=== PATIENT | female | born 1975 | race Caucasian/White ===

== ENCOUNTER 2019-06-26 07:47 | Outpatient (CLI) | payer MEDICARE, MEDICAID, SELFPAY ==
--- NOTE | 2019-06-26 | CT_ITS ---
WS: [id number] CT scan of the chest With IV contrast, CT scan of the abdomen and pelvis With IV contrast and with oral contrast. Additional two-dimensional coronal and sagittal reconstruction was performed. 06/26/2019 Clinical Data: COLON CANCER/LUNG ABSCESS Comparison: CT chest, 04/17/2019, CT abdomen and pelvis, 01/13/2019. DLP: 1207.11 mGy-cm. All CT scans at [facility] use at least one of these dose optimization techniques: automat ed exposure control; mA and/or kV adjustment per patient size (includes targeted exams where dose is matched to clinical indication); or iterative reconstruction. Findings: Chest: The cavitary mass in the superior segment of the left lower lobe has diminished in size and now measu res 3.14 x 4.23 cm. The wall has thinned considerably. This is more consistent with a lung abscess ra ther than a lung carcinoma. No other masses are seen. No change in the right upper lobe nodule is not ed. There are no effusions. The heart size is normal with no pericardial effusion. The trachea bifurcates normally into the bronc hi. The thyroid gland shows normal enhancement. The right infusion catheter remains the same. The bon es of the thorax show no metastatic lesions. The pulmonary arterial system and thoracic aorta demonstrate no abnormalities or dilatations. There is no axillary or significant mediastinal adenopathy. Abdomen/pelvis: The liver, adrenal glands and pancreas are normal. Her clips in the gallbladder fossa from a cholecy stectomy. The spleen is absent and there is a soft tissue mass between the fundus of the stomach and left kidney with a low-density center and it has enlarged slightly and has a low-density center perha ps a fluid collection. The kidneys show equal bilateral contrast excretion with no cyst or masses. The abdominal aorta is normal in size. No appendicitis or diverticulitis is seen. Oral contrast is in the stomach, small bowel and colon, an d there is no bowel dilatation. No abscess, significant adenopathy, ascites, mass, obstruction or lianne e air is seen. The left mid abdominal colostomy site again is seen with herniation of fat into the co lostomy. The sigmoid colon again ends in the pouch. The bladder and uterus are unremarkable. No inguinal hernia is seen. The bones of the lower thorax, lumbar spine, pelvis, and hips show degenerative change of the lower l umbar vertebral bodies but no metastatic lesions. CT/CT chest abd pel w con* Impression: 1. Decrease in size of cavitary lesion in superior segment of the left lower lo be, probably an improving lung abscess. 2. No new lung nodules or metastatic lesions are seen. 3. Absent gallbladder and spleen. 4. Soft tissue mass between the fundus of the stomach and left kidney may repre sent postoperative fibrosis and less likely metastatic disease.. 5. No change in left paramedian colostomy.
--- NOTE | 2019-06-26 08:03 | CT_ITS ---
WS: [id number] CT scan of the chest With IV contrast, CT scan of the abdomen and pelvis With IV contrast and with oral contrast. Additional two-dimensional coronal and sagittal reconstruction was performed. 06/26/2019 Clinical Data: COLON CANCER/LUNG ABSCESS Comparison: CT chest, 04/17/2019, CT abdomen and pelvis, 01/13/2019. DLP: 1207.11 mGy-cm. All CT scans at [facility] use at least one of these dose optimization techniques: automat ed exposure control; mA and/or kV adjustment per patient size (includes targeted exams where dose is matched to clinical indication); or iterative reconstruction. Findings: Chest: The cavitary mass in the superior segment of the left lower lobe has diminished in size and now measu res 3.14 x 4.23 cm. The wall has thinned considerably. This is more consistent with a lung abscess ra ther than a lung carcinoma. No other masses are seen. No change in the right upper lobe nodule is not ed. There are no effusions. The heart size is normal with no pericardial effusion. The trachea bifurcates normally into the bronc hi. The thyroid gland shows normal enhancement. The right infusion catheter remains the same. The bon es of the thorax show no metastatic lesions. The pulmonary arterial system and thoracic aorta demonstrate no abnormalities or dilatations. There is no axillary or significant mediastinal adenopathy. Abdomen/pelvis: The liver, adrenal glands and pancreas are normal. Her clips in the gallbladder fossa from a cholecy stectomy. The spleen is absent and there is a soft tissue mass between the fundus of the stomach and left kidney with a low-density center and it has enlarged slightly and has a low-density center perha ps a fluid collection. The kidneys show equal bilateral contrast excretion with no cyst or masses. The abdominal aorta is normal in size. No appendicitis or diverticulitis is seen. Oral contrast is in the stomach, small bowel and colon, an d there is no bowel dilatation. No abscess, significant adenopathy, ascites, mass, obstruction or lianne e air is seen. The left mid abdominal colostomy site again is seen with herniation of fat into the co lostomy. The sigmoid colon again ends in the pouch. The bladder and uterus are unremarkable. No inguinal hernia is seen. The bones of the lower thorax, lumbar spine, pelvis, and hips show degenerative change of the lower l umbar vertebral bodies but no metastatic lesions.
[2019-06-26] MEDS: iohexol 300 mg/mL 100 mL Btl IV (08:11)
[2019-06-26] MEDS: iohexol 300 mg/mL 50 mL Btl IV (08:13)
== END 2019-06-26 07:48 | disposition home or self-care (01) ==
PROVIDERS: Family Provider Family Medicine; PCP Family Medicine; Visit Provider Internal Medicine Medical Oncology
DX: C18.9 Malignant neoplasm of colon, unspecified (principal); J85.2 Abscess of lung without pneumonia
CPT/HCPCS: 71260; 74177

== ENCOUNTER 2019-07-07 09:43 | Outpatient (CLI) | payer MEDICARE, MEDICAID, SELFPAY ==
[2019-07-07 10:20] LABS: Basophils # 0.1 10^3/uL (0.0-0.1); Basophils % 0.5 %; Eosinophils # 0.5 10^3/uL (0.0-0.8); Eosinophils % 3.3 %; Hematocrit 39.4 % (37.0-47.0); Hemoglobin 12.7 g/dL (11.5-15.3); Lymphocytes # 3.9 10^3/uL (0.8-4.8); Lymphocytes % 26.2 %; Mean Corpuscular HGB Conc 32.2 g/dL (30.0-36.0); Mean Corpuscular Hemoglobin 30.7 pg (28.0-34.0); Mean Corpuscular Volume 95.2 fL (81-99); Mean Platelet Volume 10.2 fL (7.4-10.4); Monocytes # 1.2 10^3/uL (0.2-0.9); Monocytes % 8.1 %; Neutrophils # 9.1 10^3/uL (1.8-7.7); Neutrophils % 60.9 %; Nucleated Red Blood Cells # 0.1 /100WBC; Nucleated Red Blood Cells % 0.4 %; Platelet Count 571 10^3/cmm (130-400); Red Blood Count 4.14 10^6/uL (4.1-5.3); Red Cell Distribution Width 17.3 % (12.1-15.1)
[2019-07-07 10:41] LABS: Carcinoembryonic Antigen 2.4 ng/mL (0.0-4.7)
[2019-07-07 10:52] LABS: Alanine Aminotransferase 13 U/L (0-33); Albumin Level 3.9 g/dL (3.5-5.2); Alkaline Phosphatase 125 IU/L (35-105); Aspartate Amino Transferase 10 U/L (0-32); Blood Urea Nitrogen 9 mg/dL (6-20); Calcium 9.4 mg/Dl (8.6-10.0); Carbon Dioxide 23 mmol/L (22-29); Chloride 99 mmol/L (98-107); Globulin 2.3 g/dL (1.3-4.6); Glomerular Filtration Rate 108.1 mL/min (90-130); Glucose 115 mg/dL (74-109); Sodium 136 mmol/L (136-145); Total Bilirubin 0.2 mg/dL (0.15-1.2); Total Protein 6.2 g/dL (6.6-8.7)
[2019-07-07] MEDS: sodium chloride 0.9% 1,000 ML 999 ML IV (10:55)
--- NOTE | 2019-07-11 13:34 | ONC FU_ITS ---
Dr. Cooney Patient Follow-Up Note Patient: Flaca Caceres Unit #: [id number]: 1975 Dicatated By: Quinn Cooney M.D.Date of Visit:Jul 07, 2019 Onc Med Follow-up/Prog Note Chief Complaint: Colon cancer and anal margin skin cancer. History of Present Illness: This is a 44 year-old woman with recurrent/metastatic colon cancer and anal margin skin cancer. She has a history of HIV infection acquired through prior IV drug use, diagnosed in 1993. She had a high viral load, CD4 counts of 300. She had been followed by Dr. Goss and Shalini Simeon at [facility] in [place], [place]. She had started treatment with Atripla, though she had been without any history of AIDS defining illnesses. She was then admitted with an acute large bowel obstruction. Her CT of the abdomen and pelvis on 09/24/2013 showed 5 cm mass in the splenic flexure with massive distention of the colon. There were no lesions in the liver. Chest x-ray was unremarkable. CEA 1.0. On 09/25/2013 she was taken to OR for exploratory laparotomy, left hemicolectomy, and transverse end colostomy by Dr. Cristian Bourgeois. 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 There was involvement in 3 out of 7 lymph nodes. Thus, her disease was pathologic stage IIIB (pT3, pN1b, M0). CD4 counts were at 458. Left-sided Port-A-Cath placed. Adjuvant chemotherapy with FOLFOX regimen for 4 cycles delivered 10/21/2013-03/08/2014. She had multiple interruptions, and noncompliance. She had an abscess collection at the surgical bed, underwent a CT-guided percutaneous drainage. For Escherichia coli infection, she received 14 days of Invanz via port. CT of the abdomen and pelvis on 02/15/14 showed no disease progression, although she had a pre-sacral mass inseparable from the colon, which was present since 09/24/2013. There was no further abscess. On 04/04/2014 she had an abdominal pain due to prolapsed bowel in stoma, presented to ED. The urine toxicology screen was positive for amphetamine and THC screen. On 04/09/2014 she was admitted with fever, thought to be due to Port-A-Cath infection. Port-A-Cath was removed, cultures negative. Once again the patient was lost to followup, and did not return for the scheduled appointments. 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 Capecitabine and Oxaliplatin was attempted, cycle 1 on 06/02/14, cycle 2 on 07/14/14. In total, she has received 6 cycles of the oxaliplatin-based treatment, with significant interruptions in her care from 10/21/2013 till 07/14/14. She continued on expectant management; missed her follow up appointments. PET/CT on 11/27/2014 showed no evidence of recurrent malignancy. There was an enlarged left ovary for which ultrasound was recommended. She failed to return for ultrasound or for her scheduled follow-up visits. In interim she underwent perineal and vaginal papulosis treatment by Dr. Bonds. In April 2015 she had progressive night sweats, and progressive pain in the anal / pelvic region. A CT of the pelvis on05/04/2015 revealed several nodular lesions in the pelvis including an 1.9 cm in the vaginal wall, a 4.2 cm in the presacral region, an 1.25 cm adjacent to the left ovary. Clinically she had significant tenderness in the vaginal wall and labia. On 07/04/2015 she underwent an exam under anesthesia, by Dr. Bonds and Dr. Munoz. A large perianal mass with vaginal fistula and open wound was found. She required fistulotomy with the biopsy and excision of the anal mass as well as dilation and curettage. 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 She was then again lost to follow-up here. She was reached in August 2015. At that point an ulcerated, symptomatic anal margin mass measuring 3 cm at 3:00 position was apparent. Restaging PET/CT on 10/01/2015 revealed persistent primary anal malignancy increased in size, 2 subcentimeter conjoint suspicious pulmonary nodules in the right lower lobe and FDG negative presacral mass increased to 5 cm. 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 Small right lower lobe pulmonary nodule was suspicious for metastatic disease. Concurrent combined chemotherapy with Mitomycin and Xeloda together with radiation treatment began on 10/06/2015. Her treatment was complicated with significant radiation-induced toxicity and perineal pain. Clinically, the ulcerated lesion had decreased in size. She completed radiation on 11/28/2015 to a total dose of 5580 cGy. She was seen here for a follow-up visit on 02/16/2016. At that time she was having fever, abdominal pain, and vomiting. A CT abdomen/pelvis at that time showed a new mesenteric nodule in the left upper abdomen measuring 1.7 x 2.2 cm. Metastasis was not excluded. There was moderate hepatomegaly and hepatic steatosis. Her laboratory studies were unremarkable except for low albumin at 2.9 g/dL. She failed to return for follow-up. She was seen at the emergency room at [facility] on 10/22/2017. CT abdomen/pelvis showed interval enlargement of a lobulated cystic structure in the splenic hilum measuring 4.2 x 4.1 cm. She was seen for follow-up here on 10/28/2017. At that time she had a large stomal hernia and significant prolapse of colon at her ostomy site. She was referred to Dr. Bourgeois. She underwent colonoscopy on 12/10/2017. The transverse colon was examined to the transverse colostomy, but the ascending colon could not be visualized. Two days later she presented to the emergency room with severe abdominal pain. She was admitted to [facility] in [place] with evidence of perforated viscus. On 12/12/2017 she underwent emergency exploratory laparotomy with resection of perisplenic mass, splenectomy, and omentectomy. She also underwent reduction of the colon prolapse and reduction of the stomal hernia. Pathology showed well-differentiated mucinous adenocarcinoma involving the perisplenic fat. The tumor measured 7.2 cm in diameter. There was invasion into the spleen and pancreas. Tumor was noted at the edge of the specimen. The omentum was not involved. The tumor was found to harbor a K-barby mutation (c.35G>A). Mismatch repair proteins were found to be intact. On 12/19/2017 she required exploratory laparotomy with drainage of intra-abdominal abscess and partial gastric resection. On 01/03/2018 showed a re-exploration of the abdomen for gastric leak. The procedure included extensive lysis of adhesions, esophagogastroduodenoscopy, and placement of LEIGHA gastrostomy jejunostomy feeding tube. She had gradual recovery and was then able to be discharged to the [facility] in [place]. She eventually was able to return home with her mother in January. Restaging PET/CT on 06/07/2018 showed a new minimally hypermetabolic left periaortic lymph node measuring 1.7 cm, SUV 2.4. It was felt to be suspicious for recurrence. There were no other suspicious lesions identified. She then had further pathologic evaluation with a [facility] genetic sequencing study. It confirmed the presence of the G12D KRAS mutation and it also confirmed the tumor to be MSI stable. Tumor mutation burden was noted to be low and the NTRK fusion was not detected. I had seen her for a follow-up visit on 07/08/2018. In the absence of any significant disease progression, I had recommended that we continue on observation/expectant management. Restaging CT scans of the abdomen and pelvis on 10/16/2018 show recurrent tumor in the area of the previously noted mass, measuring 3.1 cm. There was interval development of retroperitoneal left periaortic lymphadenopathy measuring up to 14 mm. There was no inguinal or mesenteric adenopathy noted. There was further enlargement of the parastomal hernia measuring 6.5 cm compared to 4.2 cm on the previous study from October 2017. In the setting of further disease progression, she was agreeable to restarting chemotherapy with modified FOLFOX. There was some delay in starting treatment while arrangements were made for placement of Port-A-Cath venous access device by interventional radiology at [facility]. Her medical illnesses include colon cancer, anal margin skin cancer, HIV disease, COPD, hypertension, hypertriglyceridemia, and hypothyroidism. She also has a history of having been treated for cervical cancer. She smokes 1 pack of cigarettes daily, and she has history of polysubstance abuse. INTERIM HISTORY: She began cycle 1 of modified FOLFOX on 12/09/2018. It was administered without 5-FU bolus. She had been having nausea/vomiting prior to surgery the chemotherapy, and it worsened afterwards to the point that she required admission to the hospital for IV fluids and IV anti-emetics. She was sick for about a week after that treatment. Following discharge from the hospital she had no further nausea/vomiting. She continued with cycle 2 of modified FOLFOX on 12/22/2018 and with cycle 3 on 01/06/2019. At her follow-up visit on 01/20/2019 her treatment was put on hold pending outcome of a restaging PET/CT. That study was completed on 02/12/2019. It showed increased metabolic activity in the left upper abdominal mass measuring 3.2 x 2.0 cm, maximum SUV 6.29. Also noted were FDG avid upper retroperitoneal and para-aortic retroperitoneal lymph nodes, consistent with metastatic disease. There did not appear to be obvious disease progression compared to a prior CT scan from 10/28/2018. However, she also did not appear to be showing any significant response, and in the setting of worsening symptoms, I did opt to change her treatment to a FOLFIRI chemotherapy regimen in combination with Avastin. She began cycle 1 of FOLFIRI/Avastin on 03/09/2019. She did require IV hydration and antibiotics for chemotherapy-induced nausea/vomiting, but she otherwise tolerated it with acceptable toxicity. She continued with cycle 2 on 03/23/2019. Subsequent to that treatment she was given a course of Valtrex for suspected herpes zoster. At her followup visit on 04/13/2019 she was feeling better, and she continued with cycle 3 of FOLFIRI/Avastin. She subsequently returned with worsening cough and associated hemoptysis. Her chest CT on 04/17/2019 showed a thick-walled cavitary mass in the superior segment left lower lobe measuring 3.8 x 4.1 x 4.3 cm. The appearance was thought to be consistent with neoplasm versus infectious process. She was admitted to the hospital and began empiric antibiotic coverage with Presalin tazobactam and IV vancomycin. She was then discharged home to continue antibiotic coverage with levofloxacin and Augmentin. Her sputum subsequently came back positive for AFB, and the culture grew nocardia. She was then admitted to [facility] in [place] where she completed a course of IV antibiotic therapy with Primaxin and Bactrim. She was recommended to continue oral antibiotic coverage with Bactrim and minocycline for a total of 1 year of treatment. Her chemotherapy remains on hold.. She is seen for a follow-up visit. She indicates that she had been feeling okay, but last night she had fairly abrupt onset of nausea/vomiting. She is also having abdominal pain. This morning she has had loose stools. Her bowels had otherwise been okay. She has not had fever or night sweating. Her breathing has been okay. She has just a little bit of cough. She does not complain of chest pain. She has no complaints. She says her pain is always there, mainly in the back. She does get some relief with her pain medication. She says the numbness/tingling in her feet and toes is really bad. Medications: Back & Body Extra Strength 2 (500-32.5 mg) Tablet Oral q 6 hours, Combivent Respimat 1 Puff(s) (of 20-100 mcg/act) Aerosol, solution Inhalation q 6 hours PRN, DOK Plus 1 Tablet (of 50-8.6 mg) Oral b.i.d., Lantus SoloStar 12 Units (of 100 Units/mL) Subcutaneous daily, LORazepam 1 mg Tablet Oral b.i.d. PRN, Ondansetron HCl 1 Tablet (of 8 mg) Oral q 8 to 12 hours PRN, oxyCODONE HCl ER 1 (15 mg) Tablet ER 12 HR Abuse-Deterrent Oral b.i.d., oxyCODONE-Acetaminophen 1 Tablet (of 10-325 mg) Oral q 8 hours PRN Allergies: Morphine Sulfate, PROzac, and Ziagen. Review of Systems: Constitutional - Her energy has been OK. She is doing light work at home. Her appetite had been good until her recent illness. She has lost weight. No fever or night sweats. ECOG score is 1, ENMT - No sinus congestion/drainage. No mouth sores. No sore throat or difficulty swallowing, Hematologic/Lymphatic - She bruises easily, Respiratory - No shortness of breath. She has just a little bit of cough. No pleuritic pain or hemoptysis, Cardiovascular - No angina pain. No palpitations, Gastrointestinal - She has had nausea/vomiting beginning last night. No heartburn or acid reflux. Her bowels have been loose today, but otherwise they have been OK. No blood in the stool or black stools, Genitourinary (F) - No dysuria or hematuria. No urinary frequency. No urgency or incontinence, Musculoskeletal - She says her pain is always there, Integumentary - No skin complications, Neurologic - She has headaches. She has a liitle bit of dizziness. The numbness/tingling in her feet and toes has been really bad, Psychiatric - Her anxiety/depression is being managed adequately. She has difficulty sleeping. Vital Signs: Performed on Jul 07, 2019 10:53 Height - 65.00 in Weight - 145.2 lbs (LOW) BSA - 1.73 sq.m BMI - 24.16 Temperature - 99.5 F (HIGH) Pulse - 107 /min (HIGH) Respiration - 20 /min BP - 132/86 mm(hg) O2 Sat - 97 % Pain - 8 Physical Examination: Constitutional - She does not appear acutely ill, Eyes - Sclerae nonicteric. Conjunctivae clear, ENMT - There are no lesions noted in the oral cavity, Hematologic/Lymphatic - No cervical, clavicular, or axillary adenopathy, Respiratory - Lungs show some decrease in air movement bilaterally. There is slight wheezing on the right, Cardiovascular - Heart rhythm is regular. There is a I/ systolic murmur. There is no gallop or rub noted, Abdomen - Mildly distended but soft. There is a fairly prominent peristomal hernia. She has generalized abdominal tenderness. Liver is not enlarged. There is no abdominal mass or ascites noted and there is no inguinal adenopathy, Extremities - No edema, Neurologic - No focal neurologic deficits noted. Lab/Imaging: Test performed on Jul 07, 2019 10:11 Glucose 115 mg/dL BUN 9 mg/dL Creatinine 0.6 mg/dL Cr Clearance (Est) 135.49 mL/min Sodium 136 mmol/L Potassium 4.0 mmol/L Chloride 99 mmol/L CO2 23 mmol/L Calcium 9.4 mg/dL Protein, Total 6.2 g/dL Albumin 3.9 g/dL Bilirubin, Total 0.2 mg/dL Alkaline Phosphatase 125 IU/L AST (SGOT) 10 IU/L ALT (SGPT) 13 IU/L WBC 15 10^9/L RBC 1.14 10^12/L HGB 12.7 g/dL HCT 39.4 % MCV 95.2 fl MCH 30.7 pg MCHC 32.2 g/dL RDW 17.3 % Platelet Count 571 10^9/L MPV 10.2 fL Neutrophils (Gran) 9.1 10^9/L Lymphocytes 3.9 10^9/L Monocytes 1.2 10^9/L Eosinophils 0.5 10^9/L Basophils 0.1 10^9/L Manual Segs 60.9 % Manual Lymphocytes 26.2 % Manual Monocytes 8.1 % Manual Eosinophils 3.3 % Manual Basophils 0.5 % NRBCs 0.1 /100 WBC CEA 2.4 ng/mL Impression: 1. 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 Her tumor was found to harbor a KRAS mutation, and it was found to be MMR proficient. 2. She underwent left hemicolectomy with transverse and colostomy on 09/25/2013. 3. Adjuvant chemotherapy was attempted but was suboptimal due to poor compliance. Treatment was limited to 4 cycles of adjuvant FOLFOX, completed in February 2014, followed by 2 additional cycles of CapOx, completed in June 2014. 4. 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 She had associated vaginal fistula with open draining wound. By clinical evaluation her disease was at least stage IIIA or possibly stage IV, depending on the status of small pulmonary nodules. 5. She underwent treatment with chemoradiation utilizing mitomycin C/capecitabine for chemosensitization. Radiation was completed on 11/28/2015 to a total dose of 5580 cGy. 6. On 12/12/2017 she underwent emergency exploratory laparotomy for perforated viscus following surveillance colonoscopy. The procedure included resection of perisplenic mass, splenectomy, omentectomy, reduction of prolapse colon, and reduction of parastomal hernia. Tumor was noted at the edge of the specimen. 7. Her postoperative course was complicated by abdominal abscess and by gastric leak, requiring additional surgeries including placement of LEIGHA gastrostomy jejunostomy feeding tube. Her other medical illnesses include: 8. Hypertension. 9. Hypertriglyceridemia. 10. COPD. 11. She has underlying HIV disease. 12. She has history of polysubstance abuse. 13. She has also been treated for cervical cancer. Her restaging PET/CT on 06/07/2018 showed a new minimally hypermetabolic left periaortic lymph node measuring 1.7 cm, SUV 2.4. It was felt to be suspicious for recurrence. There were no other suspicious lesions identified. As of her follow-up visit in June 2018 her clinical status had continued to show gradual improvement. Her PET/CT scan at that point had shown findings which were suggestive of disease progression, limited to mildly enlarged periaortic lymphadenopathy. With those findings, I had recommended observation/expectant management. In October she had presented with nausea/vomiting, and there was evidence of further disease progression by CT scan. At that point she was agreeable to restarting chemotherapy with modified FOLFOX. There was some delay while arrangements were made for placement of Port-A-Cath venous access device. She began cycle 1 of modified FOLFOX on 12/09/2018. Her nausea/vomiting initially had worsened, requiring hospital admission for IV hydration and IV anti-emetics. She subsequently felt better, and she was able to complete 2 additional cycles of treatment. Her treatment was then put on hold pending outcome of restaging PET/CT. It showed persistent disease in the left upper abdominal quadrant and in retroperitoneal lymph nodes. During that time she had developed worsening GI symptoms, and she also experienced a significant decline in her performance status. As such, I opted to change her treatment to a FOLFIRI chemotherapy regimen in combination with Avastin. She began cycle 1 of FOLFIRI/Avastin on 03/09/2019. She required IV hydration for postchemotherapy nausea/vomiting. She was able to continue with cycle 2 on 03/23/2019. She began cycle 3 on 04/13/2019 after a 1-week delay due to a skin eruption in the coccygeal/perineal area, thought to be due to herpes zoster. She had subsequently returned with worsening cough and development of hemoptysis. Her chest CT on 04/17/2019 showed thick walled a cavitary lesion in the upper lobe of the left lung. The appearance was felt to be consistent with neoplasm or infectious process. Her sputum was found to be positive for AFB, and the culture subsequently grew nocardia. She was admitted to [facility] in [place], where she completed a course of IV antibiotic therapy with Primaxin and Bactrim. She was then transitioned to oral antibiotic coverage with Bactrim and minocycline. She was recommended to continue it for a total of 1 year of treatment. Her chemotherapy has remained on hold during this time. She had been doing pretty well clinically until last night when she had fairly abrupt onset of nausea/vomiting and abdominal pain. This morning she is having loose stool. This may just be a viral syndrome, but progression of her metastatic rectal cancer is obviously concern as well. Plan: She will be given IV hydration and IV antiemetics here today. I will check an abdominal x-ray to rule out any obvious obstruction. I will review her recent CT scan for comparison to the PET/CT. She will have further evaluation as indicated. Signed By: Quinn Cooney M.D. <<Signature on File>>
== END 2019-07-07 09:44 | disposition home or self-care (01) ==
LOC: ONCMED 09:45
PROVIDERS: Family Provider Family Medicine; PCP Family Medicine; Visit Provider Internal Medicine Medical Oncology
DX: E86.0 Dehydration (principal); C79.89 Secondary malignant neoplasm of other specified sites; C18.4 Malignant neoplasm of transverse colon; Z21 Asymptomatic human immunodeficiency virus [HIV] infection status; R11.2 Nausea with vomiting, unspecified; R10.9 Unspecified abdominal pain; J44.9 Chronic obstructive pulmonary disease, unspecified; I10 Essential (primary) hypertension; E78.1 Pure hyperglyceridemia; F17.210 Nicotine dependence, cigarettes, uncomplicated; E03.9 Hypothyroidism, unspecified; Z93.3 Colostomy status; Z79.891 Long term (current) use of opiate analgesic; Z90.49 Acquired absence of other specified parts of digestive tract; Z85.828 Personal history of other malignant neoplasm of skin; Z85.41 Personal history of malignant neoplasm of cervix uteri; Z92.21 Personal history of antineoplastic chemotherapy; Z92.3 Personal history of irradiation; Z90.81 Acquired absence of spleen
CPT/HCPCS: 80053; 82378; 85025; 96361; 96365; 96367; 99214; J1100; J2405; J3490; J7030

== ENCOUNTER 2019-07-07 12:26 | Outpatient (CLI) | payer MEDICARE, MEDICAID, SELFPAY ==
--- NOTE | 2019-07-07 12:33 | XRR_ITS ---
PROCEDURE INFORMATION: Exam: XR Abdomen, 2 Views Exam date and time: 07/07/2019 12:35 PM Age: 44 years old Clinical indication: Pain and condition or disease; Cancer; Other: Colon; Abdominal pain; Generalized; Prior surgery; Surgery date: 6+ months; Surgery type: Colostomy, tubal, gb, stomach; Additional info: Colon cancer/luq abdominal pain/nausea vomiting TECHNIQUE: Imaging protocol: XR of the abdomen. Frontal supine and upright views of the abdomen. Views: 2 Views. COMPARISON: CR Abdomen 2 views [id number] 03/13/2019 11:39 AM FINDINGS: Gastrointestinal tract: Normal. No bowel dilation. Intraperitoneal space: Normal. No free air. Organs: The liver measures approximately 25 cm in the midclavicular plane. The gallbladder is likely surgically absent, with metallic clips overlying the gallbladder fossa. Bones/joints: LEFT L4-5 degenerative disc narrowing. XR/XR abdomen min 2V [id number] IMPRESSION: 1. Mild hepatomegaly. 2. Prior cholecystectomy.
== END 2019-07-07 12:27 | disposition home or self-care (01) ==
LOC: RAD 12:30
PROVIDERS: Family Provider Family Medicine; PCP Family Medicine; Visit Provider Internal Medicine Medical Oncology
DX: C18.4 Malignant neoplasm of transverse colon (principal); R10.12 Left upper quadrant pain; R11.2 Nausea with vomiting, unspecified; R16.0 Hepatomegaly, not elsewhere classified; Z90.49 Acquired absence of other specified parts of digestive tract
CPT/HCPCS: 74019

== ENCOUNTER 2019-09-08 06:00 | Outpatient (CLI) | payer MEDICARE, MEDICAID, SELFPAY ==
--- NOTE | 2019-09-10 12:03 | ONC FU_ITS ---
Dr. Cooney Patient Follow-Up Note Patient: Flaca Caceres Unit #: [id number]: 1975 Dicatated By: Quinn Cooney M.D.Date of Visit:Sep 08, 2019 Onc Med Follow-up/Prog Note Chief Complaint: Colon cancer and anal margin skin cancer. History of Present Illness: This is a 44 year-old woman with recurrent/metastatic colon cancer and anal margin skin cancer. She has a history of HIV infection acquired through prior IV drug use, diagnosed in 1993. She had a high viral load, CD4 counts of 300. She had been followed by Dr. Goss and Shalini Simeon at [facility] in [place], [place]. She had started treatment with Atripla, though she had been without any history of AIDS defining illnesses. She was then admitted with an acute large bowel obstruction. Her CT of the abdomen and pelvis on 09/24/2013 showed 5 cm mass in the splenic flexure with massive distention of the colon. There were no lesions in the liver. Chest x-ray was unremarkable. CEA 1.0. On 09/25/2013 she was taken to OR for exploratory laparotomy, left hemicolectomy, and transverse end colostomy by Dr. Cristian Bourgeois. 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 There was involvement in 3 out of 7 lymph nodes. Thus, her disease was pathologic stage IIIB (pT3, pN1b, M0). CD4 counts were at 458. Left-sided Port-A-Cath placed. Adjuvant chemotherapy with FOLFOX regimen for 4 cycles delivered 10/21/2013-03/08/2014. She had multiple interruptions, and noncompliance. She had an abscess collection at the surgical bed, underwent a CT-guided percutaneous drainage. For Escherichia coli infection, she received 14 days of Invanz via port. CT of the abdomen and pelvis on 02/15/14 showed no disease progression, although she had a pre-sacral mass inseparable from the colon, which was present since 09/24/2013. There was no further abscess. On 04/04/2014 she had an abdominal pain due to prolapsed bowel in stoma, presented to ED. The urine toxicology screen was positive for amphetamine and THC screen. On 04/09/2014 she was admitted with fever, thought to be due to Port-A-Cath infection. Port-A-Cath was removed, cultures negative. Once again the patient was lost to followup, and did not return for the scheduled appointments. 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 Capecitabine and Oxaliplatin was attempted, cycle 1 on 06/02/14, cycle 2 on 07/14/14. In total, she has received 6 cycles of the oxaliplatin-based treatment, with significant interruptions in her care from 10/21/2013 till 07/14/14. She continued on expectant management; missed her follow up appointments. PET/CT on 11/27/2014 showed no evidence of recurrent malignancy. There was an enlarged left ovary for which ultrasound was recommended. She failed to return for ultrasound or for her scheduled follow-up visits. In interim she underwent perineal and vaginal papulosis treatment by Dr. Bonds. In April 2015 she had progressive night sweats, and progressive pain in the anal / pelvic region. A CT of the pelvis on05/04/2015 revealed several nodular lesions in the pelvis including an 1.9 cm in the vaginal wall, a 4.2 cm in the presacral region, an 1.25 cm adjacent to the left ovary. Clinically she had significant tenderness in the vaginal wall and labia. On 07/04/2015 she underwent an exam under anesthesia, by Dr. Bonds and Dr. Munoz. A large perianal mass with vaginal fistula and open wound was found. She required fistulotomy with the biopsy and excision of the anal mass as well as dilation and curettage. 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 She was then again lost to follow-up here. She was reached in August 2015. At that point an ulcerated, symptomatic anal margin mass measuring 3 cm at 3:00 position was apparent. Restaging PET/CT on 10/01/2015 revealed persistent primary anal malignancy increased in size, 2 subcentimeter conjoint suspicious pulmonary nodules in the right lower lobe and FDG negative presacral mass increased to 5 cm. 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 Small right lower lobe pulmonary nodule was suspicious for metastatic disease. Concurrent combined chemotherapy with Mitomycin and Xeloda together with radiation treatment began on 10/06/2015. Her treatment was complicated with significant radiation-induced toxicity and perineal pain. Clinically, the ulcerated lesion had decreased in size. She completed radiation on 11/28/2015 to a total dose of 5580 cGy. She was seen here for a follow-up visit on 02/16/2016. At that time she was having fever, abdominal pain, and vomiting. A CT abdomen/pelvis at that time showed a new mesenteric nodule in the left upper abdomen measuring 1.7 x 2.2 cm. Metastasis was not excluded. There was moderate hepatomegaly and hepatic steatosis. Her laboratory studies were unremarkable except for low albumin at 2.9 g/dL. She failed to return for follow-up. She was seen at the emergency room at [facility] on 10/22/2017. CT abdomen/pelvis showed interval enlargement of a lobulated cystic structure in the splenic hilum measuring 4.2 x 4.1 cm. She was seen for follow-up here on 10/28/2017. At that time she had a large stomal hernia and significant prolapse of colon at her ostomy site. She was referred to Dr. Bourgeois. She underwent colonoscopy on 12/10/2017. The transverse colon was examined to the transverse colostomy, but the ascending colon could not be visualized. Two days later she presented to the emergency room with severe abdominal pain. She was admitted to [facility] in [place] with evidence of perforated viscus. On 12/12/2017 she underwent emergency exploratory laparotomy with resection of perisplenic mass, splenectomy, and omentectomy. She also underwent reduction of the colon prolapse and reduction of the stomal hernia. Pathology showed well-differentiated mucinous adenocarcinoma involving the perisplenic fat. The tumor measured 7.2 cm in diameter. There was invasion into the spleen and pancreas. Tumor was noted at the edge of the specimen. The omentum was not involved. The tumor was found to harbor a K-barby mutation (c.35G>A). Mismatch repair proteins were found to be intact. On 12/19/2017 she required exploratory laparotomy with drainage of intra-abdominal abscess and partial gastric resection. On 01/03/2018 showed a re-exploration of the abdomen for gastric leak. The procedure included extensive lysis of adhesions, esophagogastroduodenoscopy, and placement of LEIGHA gastrostomy jejunostomy feeding tube. She had gradual recovery and was then able to be discharged to the detention in [place]. She eventually was able to return home with her mother in January. Restaging PET/CT on 06/07/2018 showed a new minimally hypermetabolic left periaortic lymph node measuring 1.7 cm, SUV 2.4. It was felt to be suspicious for recurrence. There were no other suspicious lesions identified. She then had further pathologic evaluation with a [facility] genetic sequencing study. It confirmed the presence of the G12D KRAS mutation and it also confirmed the tumor to be MSI stable. Tumor mutation burden was noted to be low and the NTRK fusion was not detected. I had seen her for a follow-up visit on 07/08/2018. In the absence of any significant disease progression, I had recommended that we continue on observation/expectant management. Restaging CT scans of the abdomen and pelvis on 10/16/2018 show recurrent tumor in the area of the previously noted mass, measuring 3.1 cm. There was interval development of retroperitoneal left periaortic lymphadenopathy measuring up to 14 mm. There was no inguinal or mesenteric adenopathy noted. There was further enlargement of the parastomal hernia measuring 6.5 cm compared to 4.2 cm on the previous study from October 2017. In the setting of further disease progression, she was agreeable to restarting chemotherapy with modified FOLFOX. There was some delay in starting treatment while arrangements were made for placement of Port-A-Cath venous access device by interventional radiology at [facility]. Her medical illnesses include colon cancer, anal margin skin cancer, HIV disease, COPD, hypertension, hypertriglyceridemia, and hypothyroidism. She also has a history of having been treated for cervical cancer. She smokes 1 pack of cigarettes daily, and she has history of polysubstance abuse. INTERIM HISTORY: She began cycle 1 of modified FOLFOX on 12/09/2018. It was administered without 5-FU bolus. She had been having nausea/vomiting prior to surgery the chemotherapy, and it worsened afterwards to the point that she required admission to the hospital for IV fluids and IV anti-emetics. She was sick for about a week after that treatment. Following discharge from the hospital she had no further nausea/vomiting. She continued with cycle 2 of modified FOLFOX on 12/22/2018 and with cycle 3 on 01/06/2019. At her follow-up visit on 01/20/2019 her treatment was put on hold pending outcome of a restaging PET/CT. That study was completed on 02/12/2019. It showed increased metabolic activity in the left upper abdominal mass measuring 3.2 x 2.0 cm, maximum SUV 6.29. Also noted were FDG avid upper retroperitoneal and para-aortic retroperitoneal lymph nodes, consistent with metastatic disease. There did not appear to be obvious disease progression compared to a prior CT scan from 10/28/2018. However, she also did not appear to be showing any significant response, and in the setting of worsening symptoms, I did opt to change her treatment to a FOLFIRI chemotherapy regimen in combination with Avastin. She began cycle 1 of FOLFIRI/Avastin on 03/09/2019. She did require IV hydration and antibiotics for chemotherapy-induced nausea/vomiting, but she otherwise tolerated it with acceptable toxicity. She continued with cycle 2 on 03/23/2019. Subsequent to that treatment she was given a course of Valtrex for suspected herpes zoster. At her followup visit on 04/13/2019 she was feeling better, and she continued with cycle 3 of FOLFIRI/Avastin. She subsequently returned with worsening cough and associated hemoptysis. Her chest CT on 04/17/2019 showed a thick-walled cavitary mass in the superior segment left lower lobe measuring 3.8 x 4.1 x 4.3 cm. The appearance was thought to be consistent with neoplasm versus infectious process. She was admitted to the hospital and began empiric antibiotic coverage with Presalin tazobactam and IV vancomycin. She was then discharged home to continue antibiotic coverage with levofloxacin and Augmentin. Her sputum subsequently came back positive for AFB, and the culture grew nocardia. She was then admitted to [facility] in [place] where she completed a course of IV antibiotic therapy with Primaxin and Bactrim. She was recommended to continue oral antibiotic coverage with Bactrim and minocycline for a total of 1 year of treatment. As of her follow-up visit on 07/07/2019 her chemotherapy remained on hold. She was having abdominal pain and nausea/vomiting. Abdominal x-ray at that time showed no bowel dilatation and no free air. She was given IV hydration and IV antiemetic therapy. Approximately a month ago she ended up being admitted to [facility] in [place] where she underwent surgery for bowel perforation. I do not have those records available yet. She is seen for a follow-up visit. She has been feeling better gradually following her surgery last month. She says her energy is getting better. She is doing light work. Her ECOG score is 1. Appetite is still variable. Her weight is stable. She has no fever or night sweats. She does not complain of shortness of breath, cough, or chest pain. She has not recently been having any nausea or abdominal pain. Her bowels are much better now, though her stools are still sometimes hard. She is scheduled to have her surgical drain removed on the of this month. Bladder function has been okay. She has chronic pain, but it is managed adequately with medication. She still has some numbness/tingling in her feet. Medications: Back & Body Extra Strength 2 (500-32.5 mg) Tablet Oral q 6 hours, Combivent Respimat 1 Puff(s) (of 20-100 mcg/act) Aerosol, solution Inhalation q 6 hours PRN, [employer] Senna 1 Tablet (of 8.6 mg) Oral b.i.d., DOK Plus 1 Tablet (of 50-8.6 mg) Oral b.i.d., Lantus SoloStar 12 Units (of 100 Units/mL) Subcutaneous daily, LORazepam 1 mg Tablet Oral b.i.d. PRN, Ondansetron HCl 1 Tablet (of 8 mg) Oral q 8 to 12 hours PRN, oxyCODONE HCl ER 1 (15 mg) Tablet ER 12 HR Abuse-Deterrent Oral b.i.d., oxyCODONE-Acetaminophen 1 Tablet (of 10-325 mg) Oral q 8 hours PRN Allergies: Morphine Sulfate, PROzac, and Ziagen. Review of Systems: Constitutional - Her energy continues to improve. She is able to do some light house and outside work. Her appetite is good and weight is stable. No fever, chills, hot flashes, or night sweats. ECOG score is 1, ENMT - No sinus congestion/drainage. No mouth sores. No sore throat or difficulty swallowing, Hematologic/Lymphatic - No abnormal bruising or bleeding, Respiratory - No shortness of breath. No cough. No pleuritic pain or hemoptysis, Cardiovascular - No angina pain. No palpitations, Gastrointestinal - No nausea or vomiting. No heartburn or acid reflux. She states her bowels are overall better. She is taking the recommended stool softners but still is having some harder stools. No blood in the stool or black stools, Genitourinary (F) - No dysuria or hematuria. No urinary frequency. No urgency or incontinence, Musculoskeletal - She has back that is chronic but adequately managed with her pain medication, Integumentary - No skin complications, Neurologic - No headache. She has some occaional episodes of dizziness. She has numbness in her feet, Psychiatric - She has chronic anxiety/depression. She has difficulty sleeping. Vital Signs: Performed on Sep 08, 2019 10:00 Height - 65.00 in Weight - 144 lbs (LOW) BSA - 1.72 sq.m BMI - 23.96 Temperature - 98.4 F Pulse - 101 /min (HIGH) Respiration - 19 /min BP - 115/78 mm(hg) O2 Sat - 99 % Pain - 8 Physical Examination: Constitutional - She looks better generally, Eyes - Sclerae nonicteric. Conjunctivae clear, ENMT - There are no lesions noted in the oral cavity, Hematologic/Lymphatic - No cervical, clavicular, or axillary adenopathy, Respiratory - Lungs sound clear with some decrease in air movement bilaterally, Cardiovascular - Heart rhythm is regular. There is a I/ systolic murmur. There is no gallop or rub noted, Abdomen - Mildly distended but soft. There is a fairly prominent peristomal hernia, which looks the same. There is a drain in place in the left upper quadrant area. Liver is not enlarged. There is no abdominal mass or ascites noted and there is no inguinal adenopathy, Extremities - Slight edema. She has some small scattered purpuric lesions on the arms, Neurologic - No focal neurologic deficits noted. Lab/Imaging: CBC shows hemoglobin 11.6 g, white blood cell count 12,500, and platelet count 603,000. Comprehensive metabolic profile is unremarkable except for slightly low albumin at 3.2 g/dL. Impression: 1. 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 Her tumor was found to harbor a KRAS mutation, and it was found to be MMR proficient. 2. She underwent left hemicolectomy with transverse and colostomy on 09/25/2013. 3. Adjuvant chemotherapy was attempted but was suboptimal due to poor compliance. Treatment was limited to 4 cycles of adjuvant FOLFOX, completed in February 2014, followed by 2 additional cycles of CapOx, completed in June 2014. 4. 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 She had associated vaginal fistula with open draining wound. By clinical evaluation her disease was at least stage IIIA or possibly stage IV, depending on the status of small pulmonary nodules. 5. She underwent treatment with chemoradiation utilizing mitomycin C/capecitabine for chemosensitization. Radiation was completed on 11/28/2015 to a total dose of 5580 cGy. 6. On 12/12/2017 she underwent emergency exploratory laparotomy for perforated viscus following surveillance colonoscopy. The procedure included resection of perisplenic mass, splenectomy, omentectomy, reduction of prolapse colon, and reduction of parastomal hernia. Tumor was noted at the edge of the specimen. 7. Her postoperative course was complicated by abdominal abscess and by gastric leak, requiring additional surgeries including placement of LEIGHA gastrostomy jejunostomy feeding tube. Her other medical illnesses include: 8. Hypertension. 9. Hypertriglyceridemia. 10. COPD. 11. She has underlying HIV disease. 12. She has history of polysubstance abuse. 13. She has also been treated for cervical cancer. Her restaging PET/CT on 06/07/2018 showed a new minimally hypermetabolic left periaortic lymph node measuring 1.7 cm, SUV 2.4. It was felt to be suspicious for recurrence. There were no other suspicious lesions identified. As of her follow-up visit in June 2018 her clinical status had continued to show gradual improvement. Her PET/CT scan at that point had shown findings which were suggestive of disease progression, limited to mildly enlarged periaortic lymphadenopathy. With those findings, I had recommended observation/expectant management. In October she had presented with nausea/vomiting, and there was evidence of further disease progression by CT scan. At that point she was agreeable to restarting chemotherapy with modified FOLFOX. There was some delay while arrangements were made for placement of Port-A-Cath venous access device. She began cycle 1 of modified FOLFOX on 12/09/2018. Her nausea/vomiting initially had worsened, requiring hospital admission for IV hydration and IV anti-emetics. She subsequently felt better, and she was able to complete 2 additional cycles of treatment. Her treatment was then put on hold pending outcome of restaging PET/CT. It showed persistent disease in the left upper abdominal quadrant and in retroperitoneal lymph nodes. During that time she had developed worsening GI symptoms, and she also experienced a significant decline in her performance status. As such, I opted to change her treatment to a FOLFIRI chemotherapy regimen in combination with Avastin. She began cycle 1 of FOLFIRI/Avastin on 03/09/2019. She required IV hydration for postchemotherapy nausea/vomiting. She was able to continue with cycle 2 on 03/23/2019. She began cycle 3 on 04/13/2019 after a 1-week delay due to a skin eruption in the coccygeal/perineal area, thought to be due to herpes zoster. She had subsequently returned with worsening cough and development of hemoptysis. Her chest CT on 04/17/2019 showed thick walled a cavitary lesion in the upper lobe of the left lung. The appearance was felt to be consistent with neoplasm or infectious process. Her sputum was found to be positive for AFB, and the culture subsequently grew nocardia. She was admitted to [facility] in [place], where she completed a course of IV antibiotic therapy with Primaxin and Bactrim. She was then transitioned to oral antibiotic coverage with Bactrim and minocycline. She was recommended to continue it for a total of 1 year of treatment. Her chemotherapy has remained on hold during this time. At her follow-up visit on 07/07/2019 she had presented with fairly acute onset of abdominal pain and vomiting. Her abdominal x-ray showed no bowel dilatation or free air, and she was given symptomatic management. She ended up being admitted to [facility] where she underwent surgery for bowel perforation. She is showing gradual recovery. Plan: For the time being she will remain on observation/expectant management. I will request the records from [facility], including the CT discs. If she continues to improve clinically, I may consider restarting chemotherapy next month, though without Avastin or any other VEGF inhibitor. Signed By: Quinn Cooney M.D. <<Signature on File>>
== END 2019-09-08 06:01 | disposition home or self-care (01) ==
LOC: ONCMED 11:46
PROVIDERS: Family Provider Family Medicine; PCP Family Medicine; Visit Provider Internal Medicine Medical Oncology
DX: C79.89 Secondary malignant neoplasm of other specified sites (principal); C77.2 Secondary and unspecified malignant neoplasm of intra-abdominal lymph nodes; Z85.038 Personal history of other malignant neoplasm of large intestine; E03.9 Hypothyroidism, unspecified; Z92.21 Personal history of antineoplastic chemotherapy; Z92.3 Personal history of irradiation; B20 Human immunodeficiency virus [HIV] disease; J44.9 Chronic obstructive pulmonary disease, unspecified; I10 Essential (primary) hypertension; E78.1 Pure hyperglyceridemia; F17.210 Nicotine dependence, cigarettes, uncomplicated; F19.11 Other psychoactive substance abuse, in remission; G89.29 Other chronic pain; F41.8 Other specified anxiety disorders; G47.00 Insomnia, unspecified; Z85.828 Personal history of other malignant neoplasm of skin; Z79.891 Long term (current) use of opiate analgesic; Z85.41 Personal history of malignant neoplasm of cervix uteri; Z90.49 Acquired absence of other specified parts of digestive tract
CPT/HCPCS: 99214

== ENCOUNTER 2019-10-14 09:35 | Outpatient (CLI) | payer MEDICARE, MEDICAID, SELFPAY ==
[2019-10-14 19:29] LABS: Basophils # 0.1 10^3/uL (0.0-0.1); Basophils % 0.8 %; Eosinophils # 0.6 10^3/uL (0.0-0.8); Eosinophils % 5.2 %; Hematocrit 38.2 % (37.0-47.0); Hemoglobin 11.4 g/dL (11.5-15.3); Lymphocytes # 2.6 10^3/uL (0.8-4.8); Lymphocytes % 21.8 %; Mean Corpuscular HGB Conc 29.8 g/dL (30.0-36.0); Mean Corpuscular Hemoglobin 27.6 pg (28.0-34.0); Mean Corpuscular Volume 92.5 fL (81-99); Mean Platelet Volume 10.4 fL (7.4-10.4); Monocytes # 1.3 10^3/uL (0.2-0.9); Monocytes % 10.6 %; Neutrophils # 7.3 10^3/uL (1.8-7.7); Neutrophils % 61.2 %; Nucleated Red Blood Cells % 0 %; Platelet Count 737 10^3/cmm (130-400); Red Blood Count 4.13 10^6/uL (4.1-5.3); Red Cell Distribution Width 19.3 % (12.1-15.1); White Blood Count 11.9 10^3/uL (4.0-10.0)
[2019-10-14 20:10] LABS: Carcinoembryonic Antigen 3.8 ng/mL (0.0-4.7)
[2019-10-14 20:21] LABS: Alanine Aminotransferase 8 U/L (0-33); Albumin Level 3.4 g/dL (3.5-5.2); Alkaline Phosphatase 91 IU/L (35-105); Anion Gap 20.9 (5-19); Aspartate Amino Transferase 16 U/L (0-32); Blood Urea Nitrogen 8 mg/dL (6-20); Calcium 9.5 mg/dL (8.5-10.5); Carbon Dioxide 23 mmol/L (22-29); Chloride 99 mmol/L (98-107); Globulin 3.7 g/dL (1.3-4.6); Glomerular Filtration Rate 90.5 mL/min (90-130); Glucose 59 mg/dL (65-115); Osmolality Calculated 280 mOsm/kg (285-295); Potassium 4.9 mmol/L (3.5-5.1); Sodium 138 mmol/L (136-145); Total Bilirubin 0.2 mg/dL (0.15-1.2); Total Protein 7.1 g/dL (6.6-8.7)
== END 2019-10-14 09:36 | disposition home or self-care (01) ==
LOC: ONCMED 10-15 10:10
PROVIDERS: Family Provider Family Medicine; PCP Family Medicine; Visit Provider Internal Medicine Medical Oncology
DX: C79.89 Secondary malignant neoplasm of other specified sites (principal); C21.0 Malignant neoplasm of anus, unspecified; C18.4 Malignant neoplasm of transverse colon
CPT/HCPCS: 80053; 82378; 85025

== ENCOUNTER 2019-10-26 07:52 | Outpatient (CLI) | payer MEDICARE, MEDICAID, SELFPAY ==
--- NOTE | 2019-10-26 08:57 | CT_ITS ---
WS: [id number] CT ABDOMEN AND PELVIS WITH CONTRAST HISTORY: COLON CANCER, ABDOMINAL ABSCESS TECHNIQUE: Imaging performed of the abdomen and pelvis with IV contrast. Single phase imaging of the abdomen. Coronal and sagittal reformats are submitted. All CT scans at [facility] use at least one of these dose optimization techniques: automated exposure control; mA and/or kV adjustment per patient size (includes targeted exams where dose is matched to clinical indication); or iterativ e reconstruction. IV CONTRAST: Omnipaque 300; 95 mL IV. Oral contrast: Yes. DLP: 1110.11 mGycm COMPARISON: 06/26/2019 Lower thorax: Lung bases are clear. Heart is normal size. No hiatal hernia. Liver/biliary system: Normal size liver. Mild heterogeneity. Low-attenuation in the periphery of the LEFT lobe of the liver is probably diaphragmatic slip, similar to the prior study. There is mild bile duct dilatation was not present on the prior study. May be post cholecystectomy related. Gallbladder: Prior cholecystectomy. Pancreas: Normal size pancreas. Tail of the pancreas abuts the inflammatory postoperative collection/ abscess in the LEFT upper quadrant. Spleen: Prior splenectomy. Adrenal glands: Normal. Right kidney: Normal. Left kidney: LEFT kidney is slightly enlarged. No hydronephrosis. Similar to the prior study. Aorta: Mild atherosclerosis aorta. There is increased soft tissue surrounding the abdominal aorta beg inning at the level of the SMA and surrounding the renal arteries and continued near the bifurcation. Para-aortic and aortocaval soft tissue nodules. Similar to the prior study from 06/26/2019. There is a soft tissue mass in the LEFT upper quadrant which has been previously described. There is a row of adjacent soft tissue sutures which may be related to the stomach or colon. This soft tissue mass is contiguous with the posterior stomach, distal pancreas and the splenic flexure. The mass is s lightly less necrotic as compared to the prior study. Margins are difficult to define but this mass m easures at least 5.8 x 4.9 cm. There is additional tethering and desmoplastic reaction in the mesent vijay of the LEFT abdomen. There is soft tissue mass which is irregular in shape measuring 2.3 x 2.3 cm with adjacent small satellite nodules. There are multiple small nodules which are probably mesenteri c deposits. Free fluid: None. GI tract: LEFT colostomy with parastomal hernia. There is no obstruction. Transverse colon is herniat ed into the ostomy site. Similar to the prior study. Pelvis: Atrophic uterus. No free fluid or adenopathy. Bones: Slightly mottled appearance of the osseous structures but no definite metastatic lesions are i dentified. CT/CT abdomen pelvis w con* [id number] IMPRESSION: 1. No significant improvement in the soft tissue mass in the LEFT upper quadra nt inseparable from the stomach, splenic flexure, tail of the pancreas and supe rior LEFT kidney. There are adjacent surgical sutures which may be related to c olon surgery. Abscess versus necrotic neoplasm. 2. LEFT upper quadrant mesenteric tethering with increasing soft tissue deposi ts suspicious for metastatic lesions. 3. Increased soft tissue surrounding the aorta. Metastatic adenopathy versus f ibrosis. 4. LEFT lower quadrant ostomy with parastomal hernia and no obstruction. 5. Prior cholecystectomy with very mild central bile duct dilatation which may be on the basis of the cholecystectomy.
[2019-10-26] MEDS: iohexol 300 mg/mL 50 mL Btl PO (08:59)
[2019-10-26] MEDS: iohexol 300 mg/mL 100 mL Btl IV (09:43)
== END 2019-10-26 07:53 | disposition home or self-care (01) ==
LOC: RADWPI 07:57
PROVIDERS: Family Provider Family Medicine; PCP Family Medicine; Visit Provider Internal Medicine Medical Oncology
DX: C18.9 Malignant neoplasm of colon, unspecified (principal); L02.211 Cutaneous abscess of abdominal wall
CPT/HCPCS: 74177; Q9967

== ENCOUNTER 2019-11-09 14:55 | Outpatient (CLI) | payer MEDICARE, MEDICAID, SELFPAY ==
[2019-11-09 19:50] LABS: Basophils # 0.1 10^3/uL (0.0-0.1); Basophils % 0.8 %; Eosinophils # 0.5 10^3/uL (0.0-0.8); Eosinophils % 4.3 %; Hematocrit 37.6 % (37.0-47.0); Hemoglobin 11.4 g/dL (11.5-15.3); Lymphocytes # 3.3 10^3/uL (0.8-4.8); Lymphocytes % 30.2 %; Mean Corpuscular HGB Conc 30.3 g/dL (30.0-36.0); Mean Corpuscular Hemoglobin 25.4 pg (28.0-34.0); Mean Corpuscular Volume 83.7 fL (81-99); Mean Platelet Volume 10.2 fL (7.4-10.4); Monocytes # 1.1 10^3/uL (0.2-0.9); Monocytes % 9.8 %; Neutrophils % 54.5 %; Nucleated Red Blood Cells % 0 %; Platelet Count 913 10^3/cmm (130-400); Red Blood Count 4.49 10^6/uL (4.1-5.3); Red Cell Distribution Width 19.2 % (12.1-15.1); White Blood Count 11.1 10^3/uL (4.0-10.0)
[2019-11-10 03:45] LABS: Erythrocyte Sedimentation Rate 19 mm/hr (0-15)
[2019-11-10 03:57] LABS: Alanine Aminotransferase 7 U/L (0-33); Albumin Level 3.5 g/dL (3.5-5.2); Alkaline Phosphatase 94 IU/L (35-105); Anion Gap 15.9 (5-19); Aspartate Amino Transferase 9 U/L (0-32); Blood Urea Nitrogen 6 mg/dL (6-20); C Reactive Protein 18.9 mg/L (0.0-4.9); Calcium 9.9 mg/dL (8.5-10.5); Carbon Dioxide 25 mmol/L (22-29); Chloride 101 mmol/L (98-107); Globulin 3.7 g/dL (1.3-4.6); Glomerular Filtration Rate 133.4 mL/min (90-130); Glucose 63 mg/dL (65-115); Osmolality Calculated 280 mOsm/kg (285-295); Potassium 3.9 mmol/L (3.5-5.1); Sodium 138 mmol/L (136-145); Total Bilirubin 0.2 mg/dL (0.15-1.2); Total Protein 7.2 g/dL (6.6-8.7)
== END 2019-11-09 14:56 | disposition home or self-care (01) ==
LOC: ONCMED 11-10 10:37
PROVIDERS: PCP Family Medicine; Visit Provider Internal Medicine Medical Oncology
DX: C18.4 Malignant neoplasm of transverse colon (principal); C21.0 Malignant neoplasm of anus, unspecified; C79.89 Secondary malignant neoplasm of other specified sites
CPT/HCPCS: 36415; 80053; 85025; 85651; 86140

== ENCOUNTER 2019-11-10 14:47 | Outpatient (CLI) | payer MEDICARE, MEDICAID, SELFPAY ==
--- NOTE | 2019-11-14 15:48 | ONC FU_ITS ---
Dr. Cooney Patient Follow-Up Note Patient: Flaca Caceres Unit #: [id number]: 1975 Dicatated By: Quinn Cooeny M.D.Date of Visit:November 10, 2019 Onc Med Follow-up/Prog Note Chief Complaint: Colon cancer and anal margin skin cancer. History of Present Illness: This is a 44 year-old woman with recurrent/metastatic colon cancer and anal margin skin cancer. She has a history of HIV infection acquired through prior IV drug use, diagnosed in 1993. She had a high viral load, CD4 counts of 300. She had been followed by Dr. Goss and Shalini Simeon at [facility] in [place], [place]. She had started treatment with Atripla, though she had been without any history of AIDS defining illnesses. She was then admitted with an acute large bowel obstruction. Her CT of the abdomen and pelvis on 09/24/2013 showed 5 cm mass in the splenic flexure with massive distention of the colon. There were no lesions in the liver. Chest x-ray was unremarkable. CEA 1.0. On 09/25/2013 she was taken to OR for exploratory laparotomy, left hemicolectomy, and transverse end colostomy by Dr. Cristian Bourgeois. 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 There was involvement in 3 out of 7 lymph nodes. Thus, her disease was pathologic stage IIIB (pT3, pN1b, M0). CD4 counts were at 458. Left-sided Port-A-Cath placed. Adjuvant chemotherapy with FOLFOX regimen for 4 cycles delivered 10/21/2013-03/08/2014. She had multiple interruptions, and noncompliance. She had an abscess collection at the surgical bed, underwent a CT-guided percutaneous drainage. For Escherichia coli infection, she received 14 days of Invanz via port. CT of the abdomen and pelvis on 02/15/14 showed no disease progression, although she had a pre-sacral mass inseparable from the colon, which was present since 09/24/2013. There was no further abscess. On 04/04/2014 she had an abdominal pain due to prolapsed bowel in stoma, presented to ED. The urine toxicology screen was positive for amphetamine and THC screen. On 04/09/2014 she was admitted with fever, thought to be due to Port-A-Cath infection. Port-A-Cath was removed, cultures negative. Once again the patient was lost to followup, and did not return for the scheduled appointments. 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 Capecitabine and Oxaliplatin was attempted, cycle 1 on 06/02/14, cycle 2 on 07/14/14. In total, she has received 6 cycles of the oxaliplatin-based treatment, with significant interruptions in her care from 10/21/2013 till 07/14/14. She continued on expectant management; missed her follow up appointments. PET/CT on 11/27/2014 showed no evidence of recurrent malignancy. There was an enlarged left ovary for which ultrasound was recommended. She failed to return for ultrasound or for her scheduled follow-up visits. In interim she underwent perineal and vaginal papulosis treatment by Dr. Bonds. In April 2015 she had progressive night sweats, and progressive pain in the anal / pelvic region. A CT of the pelvis on05/04/2015 revealed several nodular lesions in the pelvis including an 1.9 cm in the vaginal wall, a 4.2 cm in the presacral region, an 1.25 cm adjacent to the left ovary. Clinically she had significant tenderness in the vaginal wall and labia. On 07/04/2015 she underwent an exam under anesthesia, by Dr. Bonds and Dr. Munoz. A large perianal mass with vaginal fistula and open wound was found. She required fistulotomy with the biopsy and excision of the anal mass as well as dilation and curettage. 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 She was then again lost to follow-up here. She was reached in August 2015. At that point an ulcerated, symptomatic anal margin mass measuring 3 cm at 3:00 position was apparent. Restaging PET/CT on 10/01/2015 revealed persistent primary anal malignancy increased in size, 2 subcentimeter conjoint suspicious pulmonary nodules in the right lower lobe and FDG negative presacral mass increased to 5 cm. 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 Small right lower lobe pulmonary nodule was suspicious for metastatic disease. Concurrent combined chemotherapy with Mitomycin and Xeloda together with radiation treatment began on 10/06/2015. Her treatment was complicated with significant radiation-induced toxicity and perineal pain. Clinically, the ulcerated lesion had decreased in size. She completed radiation on 11/28/2015 to a total dose of 5580 cGy. She was seen here for a follow-up visit on 02/16/2016. At that time she was having fever, abdominal pain, and vomiting. A CT abdomen/pelvis at that time showed a new mesenteric nodule in the left upper abdomen measuring 1.7 x 2.2 cm. Metastasis was not excluded. There was moderate hepatomegaly and hepatic steatosis. Her laboratory studies were unremarkable except for low albumin at 2.9 g/dL. She failed to return for follow-up. She was seen at the emergency room at [facility] on 10/22/2017. CT abdomen/pelvis showed interval enlargement of a lobulated cystic structure in the splenic hilum measuring 4.2 x 4.1 cm. She was seen for follow-up here on 10/28/2017. At that time she had a large stomal hernia and significant prolapse of colon at her ostomy site. She was referred to Dr. Bourgeois. She underwent colonoscopy on 12/10/2017. The transverse colon was examined to the transverse colostomy, but the ascending colon could not be visualized. Two days later she presented to the emergency room with severe abdominal pain. She was admitted to [facility] in [place] with evidence of perforated viscus. On 12/12/2017 she underwent emergency exploratory laparotomy with resection of perisplenic mass, splenectomy, and omentectomy. She also underwent reduction of the colon prolapse and reduction of the stomal hernia. Pathology showed well-differentiated mucinous adenocarcinoma involving the perisplenic fat. The tumor measured 7.2 cm in diameter. There was invasion into the spleen and pancreas. Tumor was noted at the edge of the specimen. The omentum was not involved. The tumor was found to harbor a K-barby mutation (c.35G>A). Mismatch repair proteins were found to be intact. On 12/19/2017 she required exploratory laparotomy with drainage of intra-abdominal abscess and partial gastric resection. On 01/03/2018 showed a re-exploration of the abdomen for gastric leak. The procedure included extensive lysis of adhesions, esophagogastroduodenoscopy, and placement of LEIGHA gastrostomy jejunostomy feeding tube. She had gradual recovery and was then able to be discharged to the [facility] in [place]. She eventually was able to return home with her mother in January. Restaging PET/CT on 06/07/2018 showed a new minimally hypermetabolic left periaortic lymph node measuring 1.7 cm, SUV 2.4. It was felt to be suspicious for recurrence. There were no other suspicious lesions identified. She then had further pathologic evaluation with a [facility] genetic sequencing study. It confirmed the presence of the G12D KRAS mutation and it also confirmed the tumor to be MSI stable. Tumor mutation burden was noted to be low and the NTRK fusion was not detected. I had seen her for a follow-up visit on 07/08/2018. In the absence of any significant disease progression, I had recommended that we continue on observation/expectant management. Restaging CT scans of the abdomen and pelvis on 10/16/2018 show recurrent tumor in the area of the previously noted mass, measuring 3.1 cm. There was interval development of retroperitoneal left periaortic lymphadenopathy measuring up to 14 mm. There was no inguinal or mesenteric adenopathy noted. There was further enlargement of the parastomal hernia measuring 6.5 cm compared to 4.2 cm on the previous study from October 2017. In the setting of further disease progression, she was agreeable to restarting chemotherapy with modified FOLFOX. There was some delay in starting treatment while arrangements were made for placement of Port-A-Cath venous access device by interventional radiology at [facility]. Her medical illnesses include colon cancer, anal margin skin cancer, HIV disease, COPD, hypertension, hypertriglyceridemia, and hypothyroidism. She also has a history of having been treated for cervical cancer. She smokes 1 pack of cigarettes daily, and she has history of polysubstance abuse. INTERIM HISTORY: She began cycle 1 of modified FOLFOX on 12/09/2018. It was administered without 5-FU bolus. She had been having nausea/vomiting prior to surgery the chemotherapy, and it worsened afterwards to the point that she required admission to the hospital for IV fluids and IV anti-emetics. She was sick for about a week after that treatment. Following discharge from the hospital she had no further nausea/vomiting. She continued with cycle 2 of modified FOLFOX on 12/22/2018 and with cycle 3 on 01/06/2019. At her follow-up visit on 01/20/2019 her treatment was put on hold pending outcome of a restaging PET/CT. That study was completed on 02/12/2019. It showed increased metabolic activity in the left upper abdominal mass measuring 3.2 x 2.0 cm, maximum SUV 6.29. Also noted were FDG avid upper retroperitoneal and para-aortic retroperitoneal lymph nodes, consistent with metastatic disease. There did not appear to be obvious disease progression compared to a prior CT scan from 10/28/2018. However, she also did not appear to be showing any significant response, and in the setting of worsening symptoms, I did opt to change her treatment to a FOLFIRI chemotherapy regimen in combination with Avastin. She began cycle 1 of FOLFIRI/Avastin on 03/09/2019. She did require IV hydration and antibiotics for chemotherapy-induced nausea/vomiting, but she otherwise tolerated it with acceptable toxicity. She continued with cycle 2 on 03/23/2019. Subsequent to that treatment she was given a course of Valtrex for suspected herpes zoster. At her followup visit on 04/13/2019 she was feeling better, and she continued with cycle 3 of FOLFIRI/Avastin. She subsequently returned with worsening cough and associated hemoptysis. Her chest CT on 04/17/2019 showed a thick-walled cavitary mass in the superior segment left lower lobe measuring 3.8 x 4.1 x 4.3 cm. The appearance was thought to be consistent with neoplasm versus infectious process. She was admitted to the hospital and began empiric antibiotic coverage with Presalin tazobactam and IV vancomycin. She was then discharged home to continue antibiotic coverage with levofloxacin and Augmentin. Her sputum subsequently came back positive for AFB, and the culture grew nocardia. She was then admitted to [facility] in [place] where she completed a course of IV antibiotic therapy with Primaxin and Bactrim. She was recommended to continue oral antibiotic coverage with Bactrim and minocycline for a total of 1 year of treatment. As of her follow-up visit on 07/07/2019 her chemotherapy remained on hold. She was having abdominal pain and nausea/vomiting. Abdominal x-ray at that time showed no bowel dilatation and no free air. She was given IV hydration and IV antiemetic therapy. On 08/10/2019 she ended up being admitted to [facility] in [place] where she underwent surgery for bowel perforation. She was discharged home with a surgical drain in place and on antibiotic coverage with linezolid 600 mg twice daily together with fluconazole 200 mg daily. I had seen her for a follow-up visit on 07/17/2019. At that point she had restarted antibiotic coverage with linezolid due to recurrence of abdominal pain. She then had a repeat CT abdomen/pelvis on 10/26/2019. It showed no significant improvement in the left upper quadrant soft tissue mass which was noted to be inseparable from the stomach, splenic flexure, tail of pancreas, and superior left kidney. The appearance was felt to be consistent with abscess versus necrotic neoplasm. Also noted was left upper quadrant mesenteric tethering with increasing soft tissue deposits suspicious for metastatic lesions. There was increased soft tissue surrounding the aorta consistent with metastatic adenopathy versus fibrosis. There was evidence of parastomal hernia with no obstruction. She is seen for a follow-up visit. She indicates that her abdominal pain had improved somewhat after she restarted the antibiotic. However, she developed increased pain yesterday in the left flank area/left lateral back, severe enough that she was seen in the emergency room. She was treated and released. Today she is feeling better. Her energy has been so-so. She is able to do light work. ECOG score is 1. Her appetite has not been good, and she has been losing weight. She has no fever or night sweats. She does not complain of shortness of breath, cough, or chest pain. She has had some nausea. Bowel and bladder function remain adequate. She also has some lower back pain, which is chronic. She does not complain of headache. She sometimes has orthostatic lightheadedness. 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 She has some ongoing problems with anxiety. She is having difficulty sleeping. Medications: Back & Body Extra Strength 2 (500-32.5 mg) Tablet Oral q 6 hours, Combivent Respimat 1 Puff(s) (of 20-100 mcg/act) Aerosol, solution Inhalation q 6 hours PRN, CVS Senna 1 Tablet (of 8.6 mg) Oral b.i.d., DOK Plus 1 Tablet (of 50-8.6 mg) Oral b.i.d., Lantus SoloStar 12 Units (of 100 Units/mL) Subcutaneous daily, LORazepam 1 mg Tablet Oral b.i.d. PRN, Ondansetron HCl 1 Tablet (of 8 mg) Oral q 8 to 12 hours PRN, oxyCODONE HCl ER 1 (15 mg) Tablet ER 12 HR Abuse-Deterrent Oral b.i.d., oxyCODONE-Acetaminophen 1 Tablet (of 10-325 mg) Oral q 8 hours PRN Allergies: Morphine Sulfate, PROzac, and Ziagen. Review of Systems: Constitutional - Her energy is so-so. She is doing light work at home. Her appetite is not good. She is losing weight. No fever, chills, hot flashes, or night sweats. ECOG score is 1, ENMT - No sinus congestion/drainage. No mouth sores. No sore throat or difficulty swallowing, Hematologic/Lymphatic - No abnormal bruising or bleeding, Respiratory - No shortness of breath. She has a chronic smokers cough. No pleuritic pain or hemoptysis, Cardiovascular - No angina pain. No palpitations, Gastrointestinal - She had more severe abdominal pain again yesterday, but today it is better. She has some nausea, but no vomiting. No heartburn or acid reflux. No diarrhea or constipation. No blood in the stool or black stools, Genitourinary (F) - No dysuria or hematuria. No urinary frequency. No urgency or incontinence, Musculoskeletal - She has some lower back pain, whic is chronic. It is managed adequately with medication, Integumentary - No skin complications, Neurologic - No headache. She sometimes has dizziness. She has some neuropathy in her toes, Psychiatric - She has some anxiety. Her depression is better. She has difficulty sleeping. Vital Signs: Performed on November 10, 2019 15:15 Height - 65.00 in Weight - 136 lbs (LOW) BSA - 1.68 sq.m BMI - 22.63 Temperature - 98.1 F (LOW) Pulse - 97 /min Respiration - 17 /min O2 Sat - 99 % Pain - 3 Physical Examination: Constitutional - She looks pretty good generally, Eyes - Sclerae nonicteric. Conjunctivae clear, ENMT - There are no lesions noted in the oral cavity, Hematologic/Lymphatic - No cervical, clavicular, or axillary adenopathy, Respiratory - Lungs sound clear with diminished air movement bilaterally, Cardiovascular - Heart rhythm is regular. There is no murmur, gallop, or rub noted, Abdomen - Mildly distended but soft. Liver is not enlarged. There is no abdominal mass or ascites noted and there is no inguinal adenopathy, Extremities - No edema, Neurologic - No focal neurologic deficits noted. Lab/Imaging: Test performed on November 09, 2019 14:45 Sodium 138 mmol/L Potassium 3.9 mmol/L Chloride 101 mmol/L CO2 25 mmol/L Anion Gap 15.9 BUN 6 mg/dL Creatinine 0.5 mg/dL Cr Clearance (Est) 162.5900 mL/min eGFR 133.4 mL/min Glucose 63 mg/dL Calcium 9.9 mg/dL Protein, Total 7.2 g/dL Albumin 3.5 g/dL Globulin 3.7 g/dL Bilirubin, Total 0.2 mg/dL ALT (SGPT) 7 U/L AST (SGOT) 9 U/L Alkaline Phosphatase 94 IU/L ESR (Sed Rate) 19 mm/hr WBC 11.1 10 3/uL RBC 4.49 10 6/uL HGB 11.4 g/dL HCT 37.6 % MCV 83.7 fL MCH 25.4 pg MCHC 30.3 g/dL RDW 19.2 % Platelet Count 913 10 3/cmm MPV 10.2 fL Neutrophils 6.0 10 3/uL Lymphocytes 3.3 10 3/uL Monocytes 1.1 10 3/uL Eosinophils 0.5 10 3/uL Basophils 0.1 10 3/uL Neutrophil % 54.5 % Lymphocyte % 30.2 % Monocyte % 9.8 % Eosinophil % 4.3 % Basophils % 0.8 % Impression: 1. 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 Her tumor was found to harbor a KRAS mutation, and it was found to be MMR proficient. 2. She underwent left hemicolectomy with transverse and colostomy on 09/25/2013. 3. Adjuvant chemotherapy was attempted but was suboptimal due to poor compliance. Treatment was limited to 4 cycles of adjuvant FOLFOX, completed in February 2014, followed by 2 additional cycles of CapOx, completed in June 2014. 4. 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 She had associated vaginal fistula with open draining wound. By clinical evaluation her disease was at least stage IIIA or possibly stage IV, depending on the status of small pulmonary nodules. 5. She underwent treatment with chemoradiation utilizing mitomycin C/capecitabine for chemosensitization. Radiation was completed on 11/28/2015 to a total dose of 5580 cGy. 6. On 12/12/2017 she underwent emergency exploratory laparotomy for perforated viscus following surveillance colonoscopy. The procedure included resection of perisplenic mass, splenectomy, omentectomy, reduction of prolapse colon, and reduction of parastomal hernia. Tumor was noted at the edge of the specimen. 7. Her postoperative course was complicated by abdominal abscess and by gastric leak, requiring additional surgeries including placement of LEIGHA gastrostomy jejunostomy feeding tube. Her other medical illnesses include: 8. Hypertension. 9. Hypertriglyceridemia. 10. COPD. 11. She has underlying HIV disease. 12. She has history of polysubstance abuse. 13. She has also been treated for cervical cancer. Her restaging PET/CT on 06/07/2018 showed a new minimally hypermetabolic left periaortic lymph node measuring 1.7 cm, SUV 2.4. It was felt to be suspicious for recurrence. There were no other suspicious lesions identified. As of her follow-up visit in June 2018 her clinical status had continued to show gradual improvement. Her PET/CT scan at that point had shown findings which were suggestive of disease progression, limited to mildly enlarged periaortic lymphadenopathy. With those findings, I had recommended observation/expectant management. In October she had presented with nausea/vomiting, and there was evidence of further disease progression by CT scan. At that point she was agreeable to restarting chemotherapy with modified FOLFOX. There was some delay while arrangements were made for placement of Port-A-Cath venous access device. She began cycle 1 of modified FOLFOX on 12/09/2018. Her nausea/vomiting initially had worsened, requiring hospital admission for IV hydration and IV anti-emetics. She subsequently felt better, and she was able to complete 2 additional cycles of treatment. Her treatment was then put on hold pending outcome of restaging PET/CT. It showed persistent disease in the left upper abdominal quadrant and in retroperitoneal lymph nodes. During that time she had developed worsening GI symptoms, and she also experienced a significant decline in her performance status. As such, I opted to change her treatment to a FOLFIRI chemotherapy regimen in combination with Avastin. She began cycle 1 of FOLFIRI/Avastin on 03/09/2019. She required IV hydration for postchemotherapy nausea/vomiting. She was able to continue with cycle 2 on 03/23/2019. She began cycle 3 on 04/13/2019 after a 1-week delay due to a skin eruption in the coccygeal/perineal area, thought to be due to herpes zoster. She had subsequently returned with worsening cough and development of hemoptysis. Her chest CT on 04/17/2019 showed thick walled a cavitary lesion in the upper lobe of the left lung. The appearance was felt to be consistent with neoplasm or infectious process. Her sputum was found to be positive for AFB, and the culture subsequently grew nocardia. She was admitted to [facility] in [place], where she completed a course of IV antibiotic therapy with Primaxin and Bactrim. She was then transitioned to oral antibiotic coverage with Bactrim and minocycline. She was recommended to continue it for a total of 1 year of treatment. Her chemotherapy remained on hold during this time. At her follow-up visit on 07/07/2019 she had presented with fairly acute onset of abdominal pain and vomiting. Her abdominal x-ray showed no bowel dilatation or free air, and she was given symptomatic management. In July she was admitted to [facility] where she underwent surgery for bowel perforation. She had been showing gradual recovery. As of her follow-up visit on 10/16/2019 she had restarted antibiotic coverage with linezolid due to recurrence of abdominal pain. A repeat CT abdomen/pelvis on 10/26/2019 that showed persistent mass in the left upper quadrant consistent with necrotic neoplasm versus abscess. I did review that study with the radiologist, and it did appear likely that there was at least some residual abscess. There were other findings suspicious for progression of the underlying neoplasm. At this point she continues to have some abdominal pain and she is having ongoing problems with anorexia and weight loss. Plan: She will continue antibiotic coverage with linezolid 600 mg bid. I will have her increase Marinol up to 10 mg 3 times daily for her anorexia/weight loss. She also will start citalopram 20 mg daily for the anxiety and she will be given a prescription for Ambien 5 mg at bedtime for the insomnia. I will see her again in 1 month. Signed By: Quinn Cooney M.D. <<Signature on File>>
== END 2019-11-10 14:48 | disposition home or self-care (01) ==
LOC: ONCMED 14:47
PROVIDERS: PCP Family Medicine; Visit Provider Internal Medicine Medical Oncology
DX: C79.89 Secondary malignant neoplasm of other specified sites (principal); C77.2 Secondary and unspecified malignant neoplasm of intra-abdominal lymph nodes; Z85.038 Personal history of other malignant neoplasm of large intestine; Z85.41 Personal history of malignant neoplasm of cervix uteri; R63.0 Anorexia; R63.4 Abnormal weight loss; G47.00 Insomnia, unspecified; F41.9 Anxiety disorder, unspecified; Z68.22 Body mass index [BMI] 22.0-22.9, adult; I10 Essential (primary) hypertension; E78.1 Pure hyperglyceridemia; J44.9 Chronic obstructive pulmonary disease, unspecified; B20 Human immunodeficiency virus [HIV] disease; F15.11 Other stimulant abuse, in remission; R10.9 Unspecified abdominal pain; Z90.49 Acquired absence of other specified parts of digestive tract; Z79.2 Long term (current) use of antibiotics; Z79.899 Other long term (current) drug therapy
CPT/HCPCS: 99214

== ENCOUNTER 2019-12-08 15:58 | Outpatient (CLI) | payer MEDICARE, MEDICAID, SELFPAY ==
--- NOTE | 2019-12-11 18:24 | ONC FU_ITS ---
Dr. Cooney Patient Follow-Up Note Patient: Flaca Caceres Unit #: [id number]: 1975 Dicatated By: Quinn Cooney M.D.Date of Visit:Dec 08, 2019 Onc Med Follow-up/Prog Note Chief Complaint: Colon cancer and anal margin skin cancer. History of Present Illness: This is a 44 year-old woman with recurrent/metastatic colon cancer and anal margin skin cancer. She has a history of HIV infection acquired through prior IV drug use, diagnosed in 1993. She had a high viral load, CD4 counts of 300. She had been followed by Dr. Goss and Shalini Simeon at [facility] in [place], [place]. She had started treatment with Atripla, though she had been without any history of AIDS defining illnesses. She was then admitted with an acute large bowel obstruction. Her CT of the abdomen and pelvis on 09/24/2013 showed 5 cm mass in the splenic flexure with massive distention of the colon. There were no lesions in the liver. Chest x-ray was unremarkable. CEA 1.0. On 09/25/2013 she was taken to OR for exploratory laparotomy, left hemicolectomy, and transverse end colostomy by Dr. Cristian Bourgeois. 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 There was involvement in 3 out of 7 lymph nodes. Thus, her disease was pathologic stage IIIB (pT3, pN1b, M0). CD4 counts were at 458. Left-sided Port-A-Cath placed. Adjuvant chemotherapy with FOLFOX regimen for 4 cycles delivered 10/21/2013-03/08/2014. She had multiple interruptions, and noncompliance. She had an abscess collection at the surgical bed, underwent a CT-guided percutaneous drainage. For Escherichia coli infection, she received 14 days of Invanz via port. CT of the abdomen and pelvis on 02/15/14 showed no disease progression, although she had a pre-sacral mass inseparable from the colon, which was present since 09/24/2013. There was no further abscess. On 04/04/2014 she had an abdominal pain due to prolapsed bowel in stoma, presented to ED. The urine toxicology screen was positive for amphetamine and THC screen. On 04/09/2014 she was admitted with fever, thought to be due to Port-A-Cath infection. Port-A-Cath was removed, cultures negative. Once again the patient was lost to followup, and did not return for the scheduled appointments. 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 Capecitabine and Oxaliplatin was attempted, cycle 1 on 06/02/14, cycle 2 on 07/14/14. In total, she has received 6 cycles of the oxaliplatin-based treatment, with significant interruptions in her care from 10/21/2013 till 07/14/14. She continued on expectant management; missed her follow up appointments. PET/CT on 11/27/2014 showed no evidence of recurrent malignancy. There was an enlarged left ovary for which ultrasound was recommended. She failed to return for ultrasound or for her scheduled follow-up visits. In interim she underwent perineal and vaginal papulosis treatment by Dr. Bonds. In April 2015 she had progressive night sweats, and progressive pain in the anal / pelvic region. A CT of the pelvis on05/04/2015 revealed several nodular lesions in the pelvis including an 1.9 cm in the vaginal wall, a 4.2 cm in the presacral region, an 1.25 cm adjacent to the left ovary. Clinically she had significant tenderness in the vaginal wall and labia. On 07/04/2015 she underwent an exam under anesthesia, by Dr. Bonds and Dr. Munoz. A large perianal mass with vaginal fistula and open wound was found. She required fistulotomy with the biopsy and excision of the anal mass as well as dilation and curettage. 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 She was then again lost to follow-up here. She was reached in August 2015. At that point an ulcerated, symptomatic anal margin mass measuring 3 cm at 3:00 position was apparent. Restaging PET/CT on 10/01/2015 revealed persistent primary anal malignancy increased in size, 2 subcentimeter conjoint suspicious pulmonary nodules in the right lower lobe and FDG negative presacral mass increased to 5 cm. 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 Small right lower lobe pulmonary nodule was suspicious for metastatic disease. Concurrent combined chemotherapy with Mitomycin and Xeloda together with radiation treatment began on 10/06/2015. Her treatment was complicated with significant radiation-induced toxicity and perineal pain. Clinically, the ulcerated lesion had decreased in size. She completed radiation on 11/28/2015 to a total dose of 5580 cGy. She was seen here for a follow-up visit on 02/16/2016. At that time she was having fever, abdominal pain, and vomiting. A CT abdomen/pelvis at that time showed a new mesenteric nodule in the left upper abdomen measuring 1.7 x 2.2 cm. Metastasis was not excluded. There was moderate hepatomegaly and hepatic steatosis. Her laboratory studies were unremarkable except for low albumin at 2.9 g/dL. She failed to return for follow-up. She was seen at the emergency room at [facility] on 10/22/2017. CT abdomen/pelvis showed interval enlargement of a lobulated cystic structure in the splenic hilum measuring 4.2 x 4.1 cm. She was seen for follow-up here on 10/28/2017. At that time she had a large stomal hernia and significant prolapse of colon at her ostomy site. She was referred to Dr. Bourgeois. She underwent colonoscopy on 12/10/2017. The transverse colon was examined to the transverse colostomy, but the ascending colon could not be visualized. Two days later she presented to the emergency room with severe abdominal pain. She was admitted to [facility] in [place] with evidence of perforated viscus. On 12/12/2017 she underwent emergency exploratory laparotomy with resection of perisplenic mass, splenectomy, and omentectomy. She also underwent reduction of the colon prolapse and reduction of the stomal hernia. Pathology showed well-differentiated mucinous adenocarcinoma involving the perisplenic fat. The tumor measured 7.2 cm in diameter. There was invasion into the spleen and pancreas. Tumor was noted at the edge of the specimen. The omentum was not involved. The tumor was found to harbor a K-barby mutation (c.35G>A). Mismatch repair proteins were found to be intact. On 12/19/2017 she required exploratory laparotomy with drainage of intra-abdominal abscess and partial gastric resection. On 01/03/2018 showed a re-exploration of the abdomen for gastric leak. The procedure included extensive lysis of adhesions, esophagogastroduodenoscopy, and placement of LEIGHA gastrostomy jejunostomy feeding tube. She had gradual recovery and was then able to be discharged to the group home in [place]. She eventually was able to return home with her mother in January. Restaging PET/CT on 06/07/2018 showed a new minimally hypermetabolic left periaortic lymph node measuring 1.7 cm, SUV 2.4. It was felt to be suspicious for recurrence. There were no other suspicious lesions identified. She then had further pathologic evaluation with a [facility] genetic sequencing study. It confirmed the presence of the G12D KRAS mutation and it also confirmed the tumor to be MSI stable. Tumor mutation burden was noted to be low and the NTRK fusion was not detected. I had seen her for a follow-up visit on 07/08/2018. In the absence of any significant disease progression, I had recommended that we continue on observation/expectant management. Restaging CT scans of the abdomen and pelvis on 10/16/2018 show recurrent tumor in the area of the previously noted mass, measuring 3.1 cm. There was interval development of retroperitoneal left periaortic lymphadenopathy measuring up to 14 mm. There was no inguinal or mesenteric adenopathy noted. There was further enlargement of the parastomal hernia measuring 6.5 cm compared to 4.2 cm on the previous study from October 2017. In the setting of further disease progression, she was agreeable to restarting chemotherapy with modified FOLFOX. There was some delay in starting treatment while arrangements were made for placement of Port-A-Cath venous access device by interventional radiology at [facility]. Her medical illnesses include colon cancer, anal margin skin cancer, HIV disease, COPD, hypertension, hypertriglyceridemia, and hypothyroidism. She also has a history of having been treated for cervical cancer. She smokes 1 pack of cigarettes daily, and she has history of polysubstance abuse. INTERIM HISTORY: She began cycle 1 of modified FOLFOX on 12/09/2018. It was administered without 5-FU bolus. She had been having nausea/vomiting prior to surgery the chemotherapy, and it worsened afterwards to the point that she required admission to the hospital for IV fluids and IV anti-emetics. She was sick for about a week after that treatment. Following discharge from the hospital she had no further nausea/vomiting. She continued with cycle 2 of modified FOLFOX on 12/22/2018 and with cycle 3 on 01/06/2019. At her follow-up visit on 01/20/2019 her treatment was put on hold pending outcome of a restaging PET/CT. That study was completed on 02/12/2019. It showed increased metabolic activity in the left upper abdominal mass measuring 3.2 x 2.0 cm, maximum SUV 6.29. Also noted were FDG avid upper retroperitoneal and para-aortic retroperitoneal lymph nodes, consistent with metastatic disease. There did not appear to be obvious disease progression compared to a prior CT scan from 10/28/2018. However, she also did not appear to be showing any significant response, and in the setting of worsening symptoms, I did opt to change her treatment to a FOLFIRI chemotherapy regimen in combination with Avastin. She began cycle 1 of FOLFIRI/Avastin on 03/09/2019. She did require IV hydration and antibiotics for chemotherapy-induced nausea/vomiting, but she otherwise tolerated it with acceptable toxicity. She continued with cycle 2 on 03/23/2019. Subsequent to that treatment she was given a course of Valtrex for suspected herpes zoster. At her followup visit on 04/13/2019 she was feeling better, and she continued with cycle 3 of FOLFIRI/Avastin. She subsequently returned with worsening cough and associated hemoptysis. Her chest CT on 04/17/2019 showed a thick-walled cavitary mass in the superior segment left lower lobe measuring 3.8 x 4.1 x 4.3 cm. The appearance was thought to be consistent with neoplasm versus infectious process. She was admitted to the hospital and began empiric antibiotic coverage with Presalin tazobactam and IV vancomycin. She was then discharged home to continue antibiotic coverage with levofloxacin and Augmentin. Her sputum subsequently came back positive for AFB, and the culture grew nocardia. She was then admitted to [facility] in [place] where she completed a course of IV antibiotic therapy with Primaxin and Bactrim. She was recommended to continue oral antibiotic coverage with Bactrim and minocycline for a total of 1 year of treatment. As of her follow-up visit on 07/07/2019 her chemotherapy remained on hold. She was having abdominal pain and nausea/vomiting. Abdominal x-ray at that time showed no bowel dilatation and no free air. She was given IV hydration and IV antiemetic therapy. On 08/10/2019 she ended up being admitted to [facility] in [place] where she underwent surgery for bowel perforation. She was discharged home with a surgical drain in place and on antibiotic coverage with linezolid 600 mg twice daily together with fluconazole 200 mg daily. I had seen her for a follow-up visit on 07/17/2019. At that point she had restarted antibiotic coverage with linezolid due to recurrence of abdominal pain. She then had a repeat CT abdomen/pelvis on 10/26/2019. It showed no significant improvement in the left upper quadrant soft tissue mass which was noted to be inseparable from the stomach, splenic flexure, tail of pancreas, and superior left kidney. The appearance was felt to be consistent with abscess versus necrotic neoplasm. Also noted was left upper quadrant mesenteric tethering with increasing soft tissue deposits suspicious for metastatic lesions. There was increased soft tissue surrounding the aorta consistent with metastatic adenopathy versus fibrosis. There was evidence of parastomal hernia with no obstruction. With those findings, I did have her continue antibiotic therapy. She is seen for a follow-up visit. She says she has been feeling better on the antibiotic. She has had some improvement in her energy/activity tolerance. She is doing some walking and she does light work. ECOG score is 1. Her appetite also is better, though her weight is down a few pounds. She has no fever or night sweats. She does have some shortness of breath. She does not complain of cough and she has not been having chest pain. She has ongoing problems with constipation, but she is getting some benefit now with Relistor. She has no other GI or complaints. In particular, she is not having abdominal pain now. She does have back pain, which is chronic. It is adequately managed with her pain medication. She has no focal neurologic symptoms. Medications: Back & Body Extra Strength 2 (500-32.5 mg) Tablet Oral q 6 hours, Combivent Respimat 1 Puff(s) (of 20-100 mcg/act) Aerosol, solution Inhalation q 6 hours PRN, CVS Senna 1 Tablet (of 8.6 mg) Oral b.i.d., DOK Plus 1 Tablet (of 50-8.6 mg) Oral b.i.d., Lantus SoloStar 12 Units (of 100 Units/mL) Subcutaneous daily, LORazepam 1 mg Tablet Oral b.i.d. PRN, Ondansetron HCl 1 Tablet (of 8 mg) Oral q 8 to 12 hours PRN, oxyCODONE HCl ER 1 (15 mg) Tablet ER 12 HR Abuse-Deterrent Oral b.i.d., oxyCODONE-Acetaminophen 1 Tablet (of 10-325 mg) Oral q 8 hours PRN Allergies: Morphine Sulfate, PROzac, and Ziagen. Review of Systems: Constitutional - She is feeling better. Her energy is good. She is doing light work. Her appetite is good but her weight is down 4 pounds from last visit and 20 pounds over 6 months. No fever, night sweats, or hot flashes. ECOG score is 1, ENMT - No sinus congestion/drainage. No mouth sores. No sore throat or difficulty swallowing, Hematologic/Lymphatic - No abnormal bruising or bleeding, Respiratory - She has some shortness of breath. No cough. No pleuritic pain or hemoptysis, Cardiovascular - No angina pain. No palpitations, Gastrointestinal - No nausea or vomiting. No heartburn or acid reflux. No diarrhea. She is taking Senna-S for constipation, and she will be starting Relistor this week. No blood n the stool or black stools. She has no current abdominal pain. She is taking Linezolid daily, Genitourinary (F) - No dysuria or hematuria. No urinary frequency. No urgency or incontinence, Musculoskeletal - She has chronic back pain, Integumentary - No skin complications, Neurologic - No headache or dizziness. No numbness or tingling. No other focal neurologic symptoms, Psychiatric - No anxiety. Her depression is adequately managed with Celexa. She is sleeping well with the Ambien. Vital Signs: Performed on Dec 08, 2019 15:01 Height - 65.00 in Weight - 132 lbs (LOW) BSA - 1.66 sq.m BMI - 21.97 Temperature - 98.3 F (LOW) Pulse - 95 /min Respiration - 17 /min BP - 93/63 mm(hg) O2 Sat - 99 % Pain - 7 Physical Examination: Constitutional - She looks pretty good generally, Eyes - Sclerae nonicteric. Conjunctivae clear, ENMT - No lesions noted in the oral cavity, Hematologic/Lymphatic - No cervical, clavicular, or axillary adenopathy, Respiratory - Lungs sound clear with diminished air movement bilaterally, Cardiovascular - Heart rhythm is regular. There is no murmur, gallop, or rub noted, Abdomen - Mildly distended but soft. Liver is not enlarged. There is no abdominal mass or ascites noted and there is no inguinal adenopathy, Extremities - No edema, Neurologic - No focal neurologic deficits noted. Lab/Imaging: Test performed on Dec 08, 2019 14:38 % Iron Saturation 6 % Glucose 122 mg/dL BUN 7 mg/dL Iron, Total 18 mcg/dL Creatinine 0.69 mg/dL TIBC 303 mcg/dL Cr Clearance (Est) 97.32 mL/min Sodium 138 mmol/L Potassium 3.9 mmol/L Chloride 103 mmol/L CO2 25 mmol/L Calcium 9.2 mg/dL Protein, Total 7.3 g/dL Albumin 3.7 g/dL Bilirubin, Total 0.2 mg/dL Alkaline Phosphatase 100 IU/L AST (SGOT) 12 IU/L ALT (SGPT) 8 IU/L WBC 9.9 10^9/L RBC 4.34 10^12/L HGB 11.2 g/dL HCT 35.2 % MCV 81.1 fl MCH 25.8 pg MCHC 31.8 g/dL RDW 20.8 % Platelet Count 731 10^9/L MPV 9.3 fL Neutrophils (Gran) 5.47 10^9/L Lymphocytes 2.82 10^9/L Monocytes 1.03 10^9/L Eosinophils 0.50 10^9/L Basophils 0.07 10^9/L Manual Lymphocytes 28 % Manual Monocytes 10 % Manual Eosinophils 5 % Manual Basophils 1 % CEA 1.9 ng/mL Impression: 1. 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 Her tumor was found to harbor a KRAS mutation, and it was found to be MMR proficient. 2. She underwent left hemicolectomy with transverse and colostomy on 09/25/2013. 3. Adjuvant chemotherapy was attempted but was suboptimal due to poor compliance. Treatment was limited to 4 cycles of adjuvant FOLFOX, completed in February 2014, followed by 2 additional cycles of CapOx, completed in June 2014. 4. 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 She had associated vaginal fistula with open draining wound. By clinical evaluation her disease was at least stage IIIA or possibly stage IV, depending on the status of small pulmonary nodules. 5. She underwent treatment with chemoradiation utilizing mitomycin C/capecitabine for chemosensitization. Radiation was completed on 11/28/2015 to a total dose of 5580 cGy. 6. On 12/12/2017 she underwent emergency exploratory laparotomy for perforated viscus following surveillance colonoscopy. The procedure included resection of perisplenic mass, splenectomy, omentectomy, reduction of prolapse colon, and reduction of parastomal hernia. Tumor was noted at the edge of the specimen. 7. Her postoperative course was complicated by abdominal abscess and by gastric leak, requiring additional surgeries including placement of LEIGHA gastrostomy jejunostomy feeding tube. Her other medical illnesses include: 8. Hypertension. 9. Hypertriglyceridemia. 10. COPD. 11. She has underlying HIV disease. 12. She has history of polysubstance abuse. 13. She has also been treated for cervical cancer. Her restaging PET/CT on 06/07/2018 showed a new minimally hypermetabolic left periaortic lymph node measuring 1.7 cm, SUV 2.4. It was felt to be suspicious for recurrence. There were no other suspicious lesions identified. As of her follow-up visit in June 2018 her clinical status had continued to show gradual improvement. Her PET/CT scan at that point had shown findings which were suggestive of disease progression, limited to mildly enlarged periaortic lymphadenopathy. With those findings, I had recommended observation/expectant management. In October she had presented with nausea/vomiting, and there was evidence of further disease progression by CT scan. At that point she was agreeable to restarting chemotherapy with modified FOLFOX. There was some delay while arrangements were made for placement of Port-A-Cath venous access device. She began cycle 1 of modified FOLFOX on 12/09/2018. Her nausea/vomiting initially had worsened, requiring hospital admission for IV hydration and IV anti-emetics. She subsequently felt better, and she was able to complete 2 additional cycles of treatment. Her treatment was then put on hold pending outcome of restaging PET/CT. It showed persistent disease in the left upper abdominal quadrant and in retroperitoneal lymph nodes. During that time she had developed worsening GI symptoms, and she also experienced a significant decline in her performance status. As such, I opted to change her treatment to a FOLFIRI chemotherapy regimen in combination with Avastin. She began cycle 1 of FOLFIRI/Avastin on 03/09/2019. She required IV hydration for postchemotherapy nausea/vomiting. She was able to continue with cycle 2 on 03/23/2019. She began cycle 3 on 04/13/2019 after a 1-week delay due to a skin eruption in the coccygeal/perineal area, thought to be due to herpes zoster. She had subsequently returned with worsening cough and development of hemoptysis. Her chest CT on 04/17/2019 showed thick walled a cavitary lesion in the upper lobe of the left lung. The appearance was felt to be consistent with neoplasm or infectious process. Her sputum was found to be positive for AFB, and the culture subsequently grew nocardia. She was admitted to [facility] in [place], where she completed a course of IV antibiotic therapy with Primaxin and Bactrim. She was then transitioned to oral antibiotic coverage with Bactrim and minocycline. She was recommended to continue it for a total of 1 year of treatment. Her chemotherapy remained on hold during this time. At her follow-up visit on 07/07/2019 she had presented with fairly acute onset of abdominal pain and vomiting. Her abdominal x-ray showed no bowel dilatation or free air, and she was given symptomatic management. In July she was admitted to [facility] where she underwent surgery for bowel perforation. She had been showing gradual recovery. As of her follow-up visit on 10/16/2019 she had restarted antibiotic coverage with linezolid due to recurrence of abdominal pain. A repeat CT abdomen/pelvis on 10/26/2019 showed persistent mass in the left upper quadrant consistent with necrotic neoplasm versus abscess. I did review that study with the radiologist, and it did appear likely that there was at least some residual abscess. Other findings, though, were suspicious for progression of the underlying neoplasm. With those findings, I did opt to have her continue antibiotic coverage with linezolid. She also was given Marinol for anorexia/nausea. Since then she has been feeling somewhat better. As yet she has had no further treatment for the colon cancer. Plan: For now she will continue with symptomatic/supportive care measures, including antibiotic coverage with linezolid 600 mg bid and including Marinol 10 mg 3 times daily. I will continue to monitor her closely and we will have the option to restart chemotherapy if there is evidence of disease progression. I will see her again in 1 month. Signed By: Quinn Cooney M.D. <<Signature on File>>
== END 2019-12-08 15:59 | disposition home or self-care (01) ==
LOC: ONCMED 15:58
PROVIDERS: PCP Family Medicine; Visit Provider Internal Medicine Medical Oncology
DX: C79.89 Secondary malignant neoplasm of other specified sites (principal); C77.2 Secondary and unspecified malignant neoplasm of intra-abdominal lymph nodes; Z85.038 Personal history of other malignant neoplasm of large intestine; Z85.41 Personal history of malignant neoplasm of cervix uteri; Z79.2 Long term (current) use of antibiotics; I10 Essential (primary) hypertension; E78.1 Pure hyperglyceridemia; J44.9 Chronic obstructive pulmonary disease, unspecified; B20 Human immunodeficiency virus [HIV] disease; F19.11 Other psychoactive substance abuse, in remission; Z92.3 Personal history of irradiation; Z90.49 Acquired absence of other specified parts of digestive tract
CPT/HCPCS: 99214

== ENCOUNTER 2020-01-13 10:48 | Outpatient (CLI) | payer MEDICARE, MEDICAID, SELFPAY ==
[2020-01-13 11:39] LABS: Basophils # 0.1 10^3/uL (0.0-0.1); Basophils % 0.7 %; Eosinophils # 0.5 10^3/uL (0.0-0.8); Eosinophils % 4.4 %; Hematocrit 34.4 % (37.0-47.0); Hemoglobin 10.6 g/dL (11.5-15.3); Lymphocytes % 25.3 %; Mean Corpuscular HGB Conc 30.8 g/dL (30.0-36.0); Mean Corpuscular Volume 81.1 fL (81-99); Mean Platelet Volume 10.9 fL (7.4-10.4); Monocytes # 1.2 10^3/uL (0.2-0.9); Monocytes % 9.9 %; Neutrophils # 7.13 10^3/uL (1.8-7.7); Neutrophils % 59.4 %; Nucleated Red Blood Cells % 0 %; Platelet Count 585 10^3/cmm (130-400); Red Blood Count 4.24 10^6/uL (4.1-5.3); Red Cell Distribution Width 19.5 % (12.1-15.1)
[2020-01-13 12:03] LABS: Carcinoembryonic Antigen 1.8 ng/mL (0.0-4.7)
[2020-01-13 12:14] LABS: Alanine Aminotransferase 8 U/L (0-33); Albumin Level 3.5 g/dL (3.5-5.2); Alkaline Phosphatase 93 IU/L (35-105); Anion Gap 14.8 (5-19); Aspartate Amino Transferase 11 U/L (0-32); Blood Urea Nitrogen 9 mg/dL (6-20); Calcium 8.4 mg/dL (8.5-10.5); Carbon Dioxide 22 mmol/L (22-29); Chloride 103 mmol/L (98-107); Globulin 3.5 g/dL (1.3-4.6); Glomerular Filtration Rate 133.4 mL/min (90-130); Glucose 122 mg/dL (65-115); Osmolality Calculated 279 mOsm/kg (285-295); Potassium 3.8 mmol/L (3.5-5.1); Sodium 136 mmol/L (136-145); Total Bilirubin 0.2 mg/dL (0.15-1.2)
[2020-01-13 14:19] LABS: Iron 19 ug/dL (37-145); Total Iron Binding Capacity 271 mcg/dl; Unsaturated Iron Binding 252 ug/dL (112-347)
== END 2020-01-13 10:49 | disposition home or self-care (01) ==
LOC: ONCMED 10:56
PROVIDERS: Visit Provider Internal Medicine Medical Oncology
DX: C18.4 Malignant neoplasm of transverse colon (principal)
CPT/HCPCS: 36591; 80053; 82378; 83540; 83550; 85025

== ENCOUNTER 2020-02-09 09:24 | Outpatient (CLI) | payer MEDICARE, MEDICAID, SELFPAY ==
--- NOTE | 2020-02-13 10:03 | ONC FU_ITS ---
Dr. Cooney Patient Follow-Up Note Patient: Flaca Caceres Unit #: [id number]: 1975 Dicatated By: Quinn Cooney M.D.Date of Visit:Feb 09, 2020 Onc Med Follow-up/Prog Note Chief Complaint: Colon cancer and anal margin skin cancer. History of Present Illness: This is a 44 year-old woman with recurrent/metastatic colon cancer and anal margin skin cancer. She has a history of HIV infection acquired through prior IV drug use, diagnosed in 1993. She had a high viral load, CD4 counts of 300. She had been followed by Dr. Goss and Shalini Simeon at [facility] in [place], [place]. She had started treatment with Atripla, though she had been without any history of AIDS defining illnesses. She was then admitted with an acute large bowel obstruction. Her CT of the abdomen and pelvis on 09/24/2013 showed 5 cm mass in the splenic flexure with massive distention of the colon. There were no lesions in the liver. Chest x-ray was unremarkable. CEA 1.0. On 09/25/2013 she was taken to OR for exploratory laparotomy, left hemicolectomy, and transverse end colostomy by Dr. Cristian Bourgeois. 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 There was involvement in 3 out of 7 lymph nodes. Thus, her disease was pathologic stage IIIB (pT3, pN1b, M0). CD4 counts were at 458. Left-sided Port-A-Cath placed. Adjuvant chemotherapy with FOLFOX regimen for 4 cycles delivered 10/21/2013-03/08/2014. She had multiple interruptions, and noncompliance. She had an abscess collection at the surgical bed, underwent a CT-guided percutaneous drainage. For Escherichia coli infection, she received 14 days of Invanz via port. CT of the abdomen and pelvis on 02/15/14 showed no disease progression, although she had a pre-sacral mass inseparable from the colon, which was present since 09/24/2013. There was no further abscess. On 04/04/2014 she had an abdominal pain due to prolapsed bowel in stoma, presented to ED. The urine toxicology screen was positive for amphetamine and THC screen. On 04/09/2014 she was admitted with fever, thought to be due to Port-A-Cath infection. Port-A-Cath was removed, cultures negative. Once again the patient was lost to followup, and did not return for the scheduled appointments. 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 Capecitabine and Oxaliplatin was attempted, cycle 1 on 06/02/14, cycle 2 on 07/14/14. In total, she has received 6 cycles of the oxaliplatin-based treatment, with significant interruptions in her care from 10/21/2013 till 07/14/14. She continued on expectant management; missed her follow up appointments. PET/CT on 11/27/2014 showed no evidence of recurrent malignancy. There was an enlarged left ovary for which ultrasound was recommended. She failed to return for ultrasound or for her scheduled follow-up visits. In interim she underwent perineal and vaginal papulosis treatment by Dr. Bonds. In April 2015 she had progressive night sweats, and progressive pain in the anal / pelvic region. A CT of the pelvis on05/04/2015 revealed several nodular lesions in the pelvis including an 1.9 cm in the vaginal wall, a 4.2 cm in the presacral region, an 1.25 cm adjacent to the left ovary. Clinically she had significant tenderness in the vaginal wall and labia. On 07/04/2015 she underwent an exam under anesthesia, by Dr. Bonds and Dr. Munoz. A large perianal mass with vaginal fistula and open wound was found. She required fistulotomy with the biopsy and excision of the anal mass as well as dilation and curettage. 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 She was then again lost to follow-up here. She was reached in August 2015. At that point an ulcerated, symptomatic anal margin mass measuring 3 cm at 3:00 position was apparent. Restaging PET/CT on 10/01/2015 revealed persistent primary anal malignancy increased in size, 2 subcentimeter conjoint suspicious pulmonary nodules in the right lower lobe and FDG negative presacral mass increased to 5 cm. 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 Small right lower lobe pulmonary nodule was suspicious for metastatic disease. Concurrent combined chemotherapy with Mitomycin and Xeloda together with radiation treatment began on 10/06/2015. Her treatment was complicated with significant radiation-induced toxicity and perineal pain. Clinically, the ulcerated lesion had decreased in size. She completed radiation on 11/28/2015 to a total dose of 5580 cGy. She was seen here for a follow-up visit on 02/16/2016. At that time she was having fever, abdominal pain, and vomiting. A CT abdomen/pelvis at that time showed a new mesenteric nodule in the left upper abdomen measuring 1.7 x 2.2 cm. Metastasis was not excluded. There was moderate hepatomegaly and hepatic steatosis. Her laboratory studies were unremarkable except for low albumin at 2.9 g/dL. She failed to return for follow-up. She was seen at the emergency room at [facility] on 10/22/2017. CT abdomen/pelvis showed interval enlargement of a lobulated cystic structure in the splenic hilum measuring 4.2 x 4.1 cm. She was seen for follow-up here on 10/28/2017. At that time she had a large stomal hernia and significant prolapse of colon at her ostomy site. She was referred to Dr. Bourgeois. She underwent colonoscopy on 12/10/2017. The transverse colon was examined to the transverse colostomy, but the ascending colon could not be visualized. Two days later she presented to the emergency room with severe abdominal pain. She was admitted to [facility] in [place] with evidence of perforated viscus. On 12/12/2017 she underwent emergency exploratory laparotomy with resection of perisplenic mass, splenectomy, and omentectomy. She also underwent reduction of the colon prolapse and reduction of the stomal hernia. Pathology showed well-differentiated mucinous adenocarcinoma involving the perisplenic fat. The tumor measured 7.2 cm in diameter. There was invasion into the spleen and pancreas. Tumor was noted at the edge of the specimen. The omentum was not involved. The tumor was found to harbor a K-barby mutation (c.35G>A). Mismatch repair proteins were found to be intact. On 12/19/2017 she required exploratory laparotomy with drainage of intra-abdominal abscess and partial gastric resection. On 01/03/2018 showed a re-exploration of the abdomen for gastric leak. The procedure included extensive lysis of adhesions, esophagogastroduodenoscopy, and placement of LEIGHA gastrostomy jejunostomy feeding tube. She had gradual recovery and was then able to be discharged to the retirement in [place]. She eventually was able to return home with her mother in January. Restaging PET/CT on 06/07/2018 showed a new minimally hypermetabolic left periaortic lymph node measuring 1.7 cm, SUV 2.4. It was felt to be suspicious for recurrence. There were no other suspicious lesions identified. She then had further pathologic evaluation with a [facility] genetic sequencing study. It confirmed the presence of the G12D KRAS mutation and it also confirmed the tumor to be MSI stable. Tumor mutation burden was noted to be low and the NTRK fusion was not detected. I had seen her for a follow-up visit on 07/08/2018. In the absence of any significant disease progression, I had recommended that we continue on observation/expectant management. Restaging CT scans of the abdomen and pelvis on 10/16/2018 show recurrent tumor in the area of the previously noted mass, measuring 3.1 cm. There was interval development of retroperitoneal left periaortic lymphadenopathy measuring up to 14 mm. There was no inguinal or mesenteric adenopathy noted. There was further enlargement of the parastomal hernia measuring 6.5 cm compared to 4.2 cm on the previous study from October 2017. In the setting of further disease progression, she was agreeable to restarting chemotherapy with modified FOLFOX. There was some delay in starting treatment while arrangements were made for placement of Port-A-Cath venous access device by interventional radiology at [facility]. Her medical illnesses include colon cancer, anal margin skin cancer, HIV disease, COPD, hypertension, hypertriglyceridemia, and hypothyroidism. She also has a history of having been treated for cervical cancer. She smokes 1 pack of cigarettes daily, and she has history of polysubstance abuse. INTERIM HISTORY: She began cycle 1 of modified FOLFOX on 12/09/2018. It was administered without 5-FU bolus. She had been having nausea/vomiting prior to surgery the chemotherapy, and it worsened afterwards to the point that she required admission to the hospital for IV fluids and IV anti-emetics. She was sick for about a week after that treatment. Following discharge from the hospital she had no further nausea/vomiting. She continued with cycle 2 of modified FOLFOX on 12/22/2018 and with cycle 3 on 01/06/2019. At her follow-up visit on 01/20/2019 her treatment was put on hold pending outcome of a restaging PET/CT. That study was completed on 02/12/2019. It showed increased metabolic activity in the left upper abdominal mass measuring 3.2 x 2.0 cm, maximum SUV 6.29. Also noted were FDG avid upper retroperitoneal and para-aortic retroperitoneal lymph nodes, consistent with metastatic disease. There did not appear to be obvious disease progression compared to a prior CT scan from 10/28/2018. However, she also did not appear to be showing any significant response, and in the setting of worsening symptoms, I did opt to change her treatment to a FOLFIRI chemotherapy regimen in combination with Avastin. She began cycle 1 of FOLFIRI/Avastin on 03/09/2019. She did require IV hydration and antibiotics for chemotherapy-induced nausea/vomiting, but she otherwise tolerated it with acceptable toxicity. She continued with cycle 2 on 03/23/2019. Subsequent to that treatment she was given a course of Valtrex for suspected herpes zoster. At her followup visit on 04/13/2019 she was feeling better, and she continued with cycle 3 of FOLFIRI/Avastin. She subsequently returned with worsening cough and associated hemoptysis. Her chest CT on 04/17/2019 showed a thick-walled cavitary mass in the superior segment left lower lobe measuring 3.8 x 4.1 x 4.3 cm. The appearance was thought to be consistent with neoplasm versus infectious process. She was admitted to the hospital and began empiric antibiotic coverage with Presalin tazobactam and IV vancomycin. She was then discharged home to continue antibiotic coverage with levofloxacin and Augmentin. Her sputum subsequently came back positive for AFB, and the culture grew nocardia. She was then admitted to [facility] in [place] where she completed a course of IV antibiotic therapy with Primaxin and Bactrim. She was recommended to continue oral antibiotic coverage with Bactrim and minocycline for a total of 1 year of treatment. As of her follow-up visit on 07/07/2019 her chemotherapy remained on hold. She was having abdominal pain and nausea/vomiting. Abdominal x-ray at that time showed no bowel dilatation and no free air. She was given IV hydration and IV antiemetic therapy. On 08/10/2019 she ended up being admitted to [facility] in [place] where she underwent surgery for bowel perforation. She was discharged home with a surgical drain in place and on antibiotic coverage with linezolid 600 mg twice daily together with fluconazole 200 mg daily. I had seen her for a follow-up visit on 07/17/2019. At that point she had restarted antibiotic coverage with linezolid due to recurrence of abdominal pain. She then had a repeat CT abdomen/pelvis on 10/26/2019. It showed no significant improvement in the left upper quadrant soft tissue mass which was noted to be inseparable from the stomach, splenic flexure, tail of pancreas, and superior left kidney. The appearance was felt to be consistent with abscess versus necrotic neoplasm. Also noted was left upper quadrant mesenteric tethering with increasing soft tissue deposits suspicious for metastatic lesions. There was increased soft tissue surrounding the aorta consistent with metastatic adenopathy versus fibrosis. There was evidence of parastomal hernia with no obstruction. With those findings, I did have her continue antibiotic therapy for the abscess. As of her followup visit in November 2019 she continued antibiotic coverage with linezolid. She appeared stable clinically with no obvious progression of the colon cancer. She is seen for a followup visit. She has not been feeling good. She reports increased pain in her back and in her left side, and she says she has developed 2 knots on her spine. Her energy is not real good, but she is doing light work at home. ECOG score is 1. Her appetite is not good. She is losing weight. She does not have fever or night sweats. She has no shortness of breath, cough, or chest pain. She has been having nausea. She has ongoing problems with constipation. Her bowels are moving with a combination of liquid senna and Relistor. Bladder function has been okay. She does not complain of headache or dizziness. She has no focal neurologic symptoms. Medications: Back & Body Extra Strength 2 (500-32.5 mg) Tablet Oral q 6 hours, Combivent Respimat 1 Puff(s) (of 20-100 mcg/act) Aerosol, solution Inhalation q 6 hours PRN, [employer]S Senna 1 Tablet (of 8.6 mg) Oral b.i.d., DOK Plus 1 Tablet (of 50-8.6 mg) Oral b.i.d., Lantus SoloStar 12 Units (of 100 Units/mL) Subcutaneous daily, LORazepam 1 mg Tablet Oral b.i.d. PRN, Ondansetron HCl 1 Tablet (of 8 mg) Oral q 8 to 12 hours PRN, oxyCODONE HCl ER 1 (15 mg) Tablet ER 12 HR Abuse-Deterrent Oral b.i.d., oxyCODONE-Acetaminophen 1 Tablet (of 10-325 mg) Oral q 8 hours PRN Allergies: Morphine Sulfate, PROzac, and Ziagen. Review of Systems: Constitutional - Her energy is fair. She is able to do light work at home. Her appetite is poor but she can eat small meals. She has been losing weight, and she is now down another 5 lbs. No fever, night sweats, or hot flashes. ECOG score is 1, ENMT - No sinus congestion/drainage. No mouth sores. No sore throat or difficulty swallowing, Hematologic/Lymphatic - No abnormal bruising or bleeding, Respiratory - No shortness of breath. No cough. No pleuritic pain or hemoptysis, Cardiovascular - No angina pain. No palpitations, Gastrointestinal - She continues to have nausea. She is taking Zofran as needed. No vomiting. No diarrhea. She continues to have significant trouble with constipation. She has been taking senna/docusate, and she also is using Relistor. No blood in the stool or black stools. She is having pain in her abdomen on the left side and in her left flank area, Genitourinary (F) - No dysuria or hematuria. No urinary frequency. No urgency or incontinence, Musculoskeletal - She started having pain in her back about 2 weeks ago, and she reports that she has 2 knots in her spine, Integumentary - No skin complications, Neurologic - No headache or dizziness. No numbness or tingling. No other focal neurologic symptoms, Psychiatric - Her anxiety and depression symptoms are better with the Celexa. She also is sleeping better. Vital Signs: Performed on Feb 09, 2020 08:37 Height - 65.00 in Weight - 127 lbs (LOW) BSA - 1.63 sq.m BMI - 21.13 Temperature - 97.5 F (LOW) Pulse - 104 /min (HIGH) Respiration - 16 /min BP - 80/40 mm(hg) (LOW) O2 Sat - 99 % Pain - 9 Physical Examination: Constitutional - She appears somewhat weak generally, Eyes - Sclerae nonicteric. Conjunctivae clear, ENMT - No lesions noted in the oral cavity, Hematologic/Lymphatic - No cervical, clavicular, or axillary adenopathy, Respiratory - Lungs show slightly coarse breath sounds bilaterally, Cardiovascular - Heart rhythm is regular. There is no murmur, gallop, or rub noted, Abdomen - Soft. She is significantly tender in the left upper quadrant area. Liver is not enlarged. There is no abdominal mass or ascites noted and there is no inguinal adenopathy, Back/Spine - There is an area of bony prominence in the lumbar spine, and that area is very tender to palpation, Extremities - No edema, Neurologic - No focal neurologic deficits noted. Lab/Imaging: Test performed on Feb 08, 2020 10:34 Glucose 113 mg/dL BUN 7 mg/dL Creatinine 0.64 mg/dL Cr Clearance (Est) 104.92 mL/min Sodium 140 mmol/L Potassium 4.0 mmol/L Chloride 106 mmol/L CO2 24 mmol/L Calcium 9.2 mg/dL Protein, Total 7.2 g/dL Albumin 3.6 g/dL Bilirubin, Total 0.2 mg/dL Alkaline Phosphatase 99 IU/L AST (SGOT) 10 IU/L ALT (SGPT) 6 IU/L WBC 11.4 10^9/L RBC 4.38 10^12/L HGB 11.0 g/dL HCT 34.8 % MCV 79.5 fl MCH 25.1 pg MCHC 31.6 g/dL RDW 19.9 % Platelet Count 683 10^9/L MPV 9.4 fL Neutrophils (Gran) 6.08 10^9/L Lymphocytes 3.51 10^9/L Monocytes 1.09 10^9/L Eosinophils 0.54 10^9/L Basophils 0.10 10^9/L Manual Lymphocytes 31 % Manual Monocytes 10 % Manual Eosinophils 5 % Manual Basophils 1 % CEA 2.3 ng/mL Impression: 1. 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 Her tumor was found to harbor a KRAS mutation, and it was found to be MMR proficient. 2. She underwent left hemicolectomy with transverse and colostomy on 09/25/2013. 3. Adjuvant chemotherapy was attempted but was suboptimal due to poor compliance. Treatment was limited to 4 cycles of adjuvant FOLFOX, completed in February 2014, followed by 2 additional cycles of CapOx, completed in June 2014. 4. 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 She had associated vaginal fistula with open draining wound. By clinical evaluation her disease was at least stage IIIA or possibly stage IV, depending on the status of small pulmonary nodules. 5. She underwent treatment with chemoradiation utilizing mitomycin C/capecitabine for chemosensitization. Radiation was completed on 11/28/2015 to a total dose of 5580 cGy. 6. On 12/12/2017 she underwent emergency exploratory laparotomy for perforated viscus following surveillance colonoscopy. The procedure included resection of perisplenic mass, splenectomy, omentectomy, reduction of prolapse colon, and reduction of parastomal hernia. Tumor was noted at the edge of the specimen. 7. Her postoperative course was complicated by abdominal abscess and by gastric leak, requiring additional surgeries including placement of LEIGHA gastrostomy jejunostomy feeding tube. Her other medical illnesses include: 8. Hypertension. 9. Hypertriglyceridemia. 10. COPD. 11. She has underlying HIV disease. 12. She has history of polysubstance abuse. 13. She has also been treated for cervical cancer. Her restaging PET/CT on 06/07/2018 showed a new minimally hypermetabolic left periaortic lymph node measuring 1.7 cm, SUV 2.4. It was felt to be suspicious for recurrence. There were no other suspicious lesions identified. As of her follow-up visit in June 2018 her clinical status had continued to show gradual improvement. Her PET/CT scan at that point had shown findings which were suggestive of disease progression, limited to mildly enlarged periaortic lymphadenopathy. With those findings, I had recommended observation/expectant management. In October she had presented with nausea/vomiting, and there was evidence of further disease progression by CT scan. At that point she was agreeable to restarting chemotherapy with modified FOLFOX. There was some delay while arrangements were made for placement of Port-A-Cath venous access device. She began cycle 1 of modified FOLFOX on 12/09/2018. Her nausea/vomiting initially had worsened, requiring hospital admission for IV hydration and IV anti-emetics. She subsequently felt better, and she was able to complete 2 additional cycles of treatment. Her treatment was then put on hold pending outcome of restaging PET/CT. It showed persistent disease in the left upper abdominal quadrant and in retroperitoneal lymph nodes. During that time she had developed worsening GI symptoms, and she also experienced a significant decline in her performance status. As such, I opted to change her treatment to a FOLFIRI chemotherapy regimen in combination with Avastin. She began cycle 1 of FOLFIRI/Avastin on 03/09/2019. She required IV hydration for postchemotherapy nausea/vomiting. She was able to continue with cycle 2 on 03/23/2019. She began cycle 3 on 04/13/2019 after a 1-week delay due to a skin eruption in the coccygeal/perineal area, thought to be due to herpes zoster. She had subsequently returned with worsening cough and development of hemoptysis. Her chest CT on 04/17/2019 showed thick walled a cavitary lesion in the upper lobe of the left lung. The appearance was felt to be consistent with neoplasm or infectious process. Her sputum was found to be positive for AFB, and the culture subsequently grew nocardia. She was admitted to [facility] in [place], where she completed a course of IV antibiotic therapy with Primaxin and Bactrim. She was then transitioned to oral antibiotic coverage with Bactrim and minocycline. She was recommended to continue it for a total of 1 year of treatment. Her chemotherapy remained on hold during this time. At her follow-up visit on 07/07/2019 she had presented with fairly acute onset of abdominal pain and vomiting. Her abdominal x-ray showed no bowel dilatation or free air, and she was given symptomatic management. In July she was admitted to [facility] where she underwent surgery for bowel perforation. She had been showing gradual recovery. As of her follow-up visit on 10/16/2019 she had restarted antibiotic coverage with linezolid due to recurrence of abdominal pain. A repeat CT abdomen/pelvis on 10/26/2019 showed persistent mass in the left upper quadrant consistent with necrotic neoplasm versus abscess. I did review that study with the radiologist, and it did appear likely that there was at least some residual abscess. Other findings, though, were suspicious for progression of the underlying neoplasm. With those findings, I did opt to have her continue antibiotic coverage with linezolid. She also was given Marinol for anorexia/nausea. As of her follow-up visit in November 2019 she was feeling somewhat better. However, since then she has had some decline in performance status, and she has had further weight loss. She also has increasing pain in her back and left side. Overall, the symptoms are worrisome for progression of the underlying malignancy. Plan: She will be scheduled for restaging CT scans of the chest, abdomen, and pelvis. She will have further evaluation as indicated. In the meantime, I will increase the dosage of her oxycodone. Signed By: Quinn Cooney M.D. <<Signature on File>>
== END 2020-02-09 09:25 | disposition home or self-care (01) ==
LOC: ONCMED 09:25
PROVIDERS: Visit Provider Internal Medicine Medical Oncology
DX: C79.89 Secondary malignant neoplasm of other specified sites (principal); C77.2 Secondary and unspecified malignant neoplasm of intra-abdominal lymph nodes; R63.4 Abnormal weight loss; R10.9 Unspecified abdominal pain; I10 Essential (primary) hypertension; J44.9 Chronic obstructive pulmonary disease, unspecified; B20 Human immunodeficiency virus [HIV] disease; E78.1 Pure hyperglyceridemia; F19.11 Other psychoactive substance abuse, in remission; M54.9 Dorsalgia, unspecified; Z85.038 Personal history of other malignant neoplasm of large intestine; Z85.41 Personal history of malignant neoplasm of cervix uteri; Z79.891 Long term (current) use of opiate analgesic; Z68.21 Body mass index [BMI] 21.0-21.9, adult; Z90.49 Acquired absence of other specified parts of digestive tract; Z92.21 Personal history of antineoplastic chemotherapy
CPT/HCPCS: 99214

== ENCOUNTER 2020-02-17 08:05 | Outpatient (CLI) | payer MEDICARE, MEDICAID, SELFPAY ==
--- NOTE | 2020-02-17 08:36 | CT_ITS ---
WS: [id number] CT CHEST, ABDOMEN AND PELVIS WITH CONTRAST HISTORY: RECTAL CANCER TECHNIQUE: Contiguous 5 mm axial imaging performed through the chest, abdomen and pelvis with IV cont rast, oral contrast has been provided. Coronal and sagittal reformats chest. Coronal and sagittal ref ormats through the abdomen and pelvis. All CT scans at [facility] use at least one of the se dose optimization techniques: automated exposure control; mA and/or kV adjustment per patient size (includes targeted exams where dose is matched to clinical indication); or iterative reconstruction. CONTRAST: Omnipaque 300; 95 mL IV. DLP: 1647.93 mGycm COMPARISON: 10/26/2019, 06/26/[address]: Previously described cavitary lesion superior segment of the LEFT lower lobe is again ident ified. The solid component has significantly decreased. There is now a cystic cavity with thin wall w ith mild spiculation measuring 2.1 x 1.9 cm. No additional suspicious findings or pneumonia. No pleur al or pericardial effusion. RIGHT subclavian Port-A-Cath with tip in the distal SVC. Small bilateral axillary lymph nodes. There are additional subcentimeter mediastinal and hilar lymph nodes which are not significantly increasing. Small hiatal hernia. Normal aorta. No osteoblastic or osteolytic bone d isease. Abdomen CT: Liver is enlarged and mildly heterogeneous. Mild central bile duct dilatation. Duct dilat ation is slightly greater in the LEFT lobe. There is an area of decreased attenuation in the lateral segment of the LEFT lobe which is not significantly increased in size. Prior cholecystectomy. Normal RIGHT adrenal gland. Prior splenectomy. Increasing soft tissue in the LEFT upper abdomen which has been previously described. There is a soft tissue mass which was positive on a prior PET/CT which looks to be invading the stomach and possibly the anterior LEFT kidney, pancreatic tail and small bowel. Overall progression of the invasive natur e. Neoplastic extension into the small bowel is causing a partial obstruction of the small bowel and stomach. There is marked dilatation of the stomach and duodenal C-loop. There are metastatic deposits with spiculation in the mesentery of the LEFT upper abdomen. The soft tissue abnormality extends int o the retroperitoneum with soft tissue encasing the aorta. Soft tissue encases and narrows the SMA an d aorta and renal arteries. There are numerous lymph nodes surrounding the celiac axis. The mid to distal small bowel is normal caliber and there is contrast within the distal small bowel s uggests an incomplete obstruction more proximally. LEFT lower quadrant ostomy with parastomal herniation of transverse colon. No obstruction at the osto my site. Pelvic CT: Urinary bladder is nondistended. No free fluid is evident in the pelvis. Uterus is atrophi c. There is a slightly heterogeneous appearance to the bones of the pelvis and hips. Early metastatic linda ne disease is not excluded. CT/CT chest abd pel w con* IMPRESSION: 1. Significant progression of the neoplastic process in the LEFT upper quadran t with invasion of the stomach, kidney, pancreas and proximal jejunum. Invasion of the jejunum is resulting in a moderate but incomplete small bowel obstructi on. 2. Marked distention of the stomach and proximal small bowel due to the partia l obstruction in the proximal jejunum. 3. Increasing metastatic nodule deposits and lymph nodes around the celiac axi s and encasement of the aorta by soft tissue at the level of the SMA and renal arteries. Suspect tumor encasement. 4. Mild progression of intrahepatic duct dilatation. Prior cholecystectomy. 5. LEFT lower quadrant ostomy with parastomal herniation of colon and no obstr uction. 6. Cystic cavity with thin wall superior segment LEFT lower lobe corresponds t o the previously described cavitary lesion with thick wall which was probably a neoplasm. 7. Mildly heterogeneous appearance to both the pelvis. 8. Early metastatic disease not excluded. Notified Quinn Cooney MD at 02/17/2020 10:26 AM.
[2020-02-17] MEDS: iohexol 300 mg/mL 50 mL Btl PO (08:40)
[2020-02-17] MEDS: iohexol 300 mg/mL 100 mL Btl IV (09:53)
[2020-02-17] MEDS: sodium chloride 0.9% 1,000 ML 999 ML IV (10:20)
[2020-02-17] MEDS: LORazepam 2 mg/mL INJ 1 mL 0.5 MG IVP (11:46)
--- NOTE | 2020-02-17 18:13 | ONC FU_ITS ---
Dr. Cooney Patient Follow-Up Note Patient: Flaca Caceres Unit #: [id number]: 1975 Dicatated By: Quinn Cooney M.D.Date of Visit:Feb 17, 2020 Onc Med Follow-up/Prog Note Chief Complaint: Colon cancer and anal margin skin cancer. History of Present Illness: This is a 44 year-old woman with recurrent/metastatic colon cancer and anal margin skin cancer. She has a history of HIV infection acquired through prior IV drug use, diagnosed in 1993. She had a high viral load, CD4 counts of 300. She had been followed by Dr. Goss and Shalini Simeon at [facility] in [place], [place]. She had started treatment with Atripla, though she had been without any history of AIDS defining illnesses. She was then admitted with an acute large bowel obstruction. Her CT of the abdomen and pelvis on 09/24/2013 showed 5 cm mass in the splenic flexure with massive distention of the colon. There were no lesions in the liver. Chest x-ray was unremarkable. CEA 1.0. On 09/25/2013 she was taken to OR for exploratory laparotomy, left hemicolectomy, and transverse end colostomy by Dr. Cristian Bourgeois. 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 There was involvement in 3 out of 7 lymph nodes. Thus, her disease was pathologic stage IIIB (pT3, pN1b, M0). CD4 counts were at 458. Left-sided Port-A-Cath placed. Adjuvant chemotherapy with FOLFOX regimen for 4 cycles delivered 10/21/2013-03/08/2014. She had multiple interruptions, and noncompliance. She had an abscess collection at the surgical bed, underwent a CT-guided percutaneous drainage. For Escherichia coli infection, she received 14 days of Invanz via port. CT of the abdomen and pelvis on 02/15/14 showed no disease progression, although she had a pre-sacral mass inseparable from the colon, which was present since 09/24/2013. There was no further abscess. On 04/04/2014 she had an abdominal pain due to prolapsed bowel in stoma, presented to ED. The urine toxicology screen was positive for amphetamine and THC screen. On 04/09/2014 she was admitted with fever, thought to be due to Port-A-Cath infection. Port-A-Cath was removed, cultures negative. Once again the patient was lost to followup, and did not return for the scheduled appointments. 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 Capecitabine and Oxaliplatin was attempted, cycle 1 on 06/02/14, cycle 2 on 07/14/14. In total, she has received 6 cycles of the oxaliplatin-based treatment, with significant interruptions in her care from 10/21/2013 till 07/14/14. She continued on expectant management; missed her follow up appointments. PET/CT on 11/27/2014 showed no evidence of recurrent malignancy. There was an enlarged left ovary for which ultrasound was recommended. She failed to return for ultrasound or for her scheduled follow-up visits. In interim she underwent perineal and vaginal papulosis treatment by Dr. Bonds. In April 2015 she had progressive night sweats, and progressive pain in the anal / pelvic region. A CT of the pelvis on05/04/2015 revealed several nodular lesions in the pelvis including an 1.9 cm in the vaginal wall, a 4.2 cm in the presacral region, an 1.25 cm adjacent to the left ovary. Clinically she had significant tenderness in the vaginal wall and labia. On 07/04/2015 she underwent an exam under anesthesia, by Dr. Bonds and Dr. Munoz. A large perianal mass with vaginal fistula and open wound was found. She required fistulotomy with the biopsy and excision of the anal mass as well as dilation and curettage. 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 She was then again lost to follow-up here. She was reached in August 2015. At that point an ulcerated, symptomatic anal margin mass measuring 3 cm at 3:00 position was apparent. Restaging PET/CT on 10/01/2015 revealed persistent primary anal malignancy increased in size, 2 subcentimeter conjoint suspicious pulmonary nodules in the right lower lobe and FDG negative presacral mass increased to 5 cm. 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 Small right lower lobe pulmonary nodule was suspicious for metastatic disease. Concurrent combined chemotherapy with Mitomycin and Xeloda together with radiation treatment began on 10/06/2015. Her treatment was complicated with significant radiation-induced toxicity and perineal pain. Clinically, the ulcerated lesion had decreased in size. She completed radiation on 11/28/2015 to a total dose of 5580 cGy. She was seen here for a follow-up visit on 02/16/2016. At that time she was having fever, abdominal pain, and vomiting. A CT abdomen/pelvis at that time showed a new mesenteric nodule in the left upper abdomen measuring 1.7 x 2.2 cm. Metastasis was not excluded. There was moderate hepatomegaly and hepatic steatosis. Her laboratory studies were unremarkable except for low albumin at 2.9 g/dL. She failed to return for follow-up. She was seen at the emergency room at [facility] on 10/22/2017. CT abdomen/pelvis showed interval enlargement of a lobulated cystic structure in the splenic hilum measuring 4.2 x 4.1 cm. She was seen for follow-up here on 10/28/2017. At that time she had a large stomal hernia and significant prolapse of colon at her ostomy site. She was referred to Dr. Bourgeois. She underwent colonoscopy on 12/10/2017. The transverse colon was examined to the transverse colostomy, but the ascending colon could not be visualized. Two days later she presented to the emergency room with severe abdominal pain. She was admitted to [facility] in [place] with evidence of perforated viscus. On 12/12/2017 she underwent emergency exploratory laparotomy with resection of perisplenic mass, splenectomy, and omentectomy. She also underwent reduction of the colon prolapse and reduction of the stomal hernia. Pathology showed well-differentiated mucinous adenocarcinoma involving the perisplenic fat. The tumor measured 7.2 cm in diameter. There was invasion into the spleen and pancreas. Tumor was noted at the edge of the specimen. The omentum was not involved. The tumor was found to harbor a K-barby mutation (c.35G>A). Mismatch repair proteins were found to be intact. On 12/19/2017 she required exploratory laparotomy with drainage of intra-abdominal abscess and partial gastric resection. On 01/03/2018 showed a re-exploration of the abdomen for gastric leak. The procedure included extensive lysis of adhesions, esophagogastroduodenoscopy, and placement of LEIGHA gastrostomy jejunostomy feeding tube. She had gradual recovery and was then able to be discharged to the [facility] in [place]. She eventually was able to return home with her mother in January. Restaging PET/CT on 06/07/2018 showed a new minimally hypermetabolic left periaortic lymph node measuring 1.7 cm, SUV 2.4. It was felt to be suspicious for recurrence. There were no other suspicious lesions identified. She then had further pathologic evaluation with a [facility] genetic sequencing study. It confirmed the presence of the G12D KRAS mutation and it also confirmed the tumor to be MSI stable. Tumor mutation burden was noted to be low and the NTRK fusion was not detected. I had seen her for a follow-up visit on 07/08/2018. In the absence of any significant disease progression, I had recommended that we continue on observation/expectant management. Restaging CT scans of the abdomen and pelvis on 10/16/2018 show recurrent tumor in the area of the previously noted mass, measuring 3.1 cm. There was interval development of retroperitoneal left periaortic lymphadenopathy measuring up to 14 mm. There was no inguinal or mesenteric adenopathy noted. There was further enlargement of the parastomal hernia measuring 6.5 cm compared to 4.2 cm on the previous study from October 2017. In the setting of further disease progression, she was agreeable to restarting chemotherapy with modified FOLFOX. There was some delay in starting treatment while arrangements were made for placement of Port-A-Cath venous access device by interventional radiology at [facility]. Her medical illnesses include colon cancer, anal margin skin cancer, HIV disease, COPD, hypertension, hypertriglyceridemia, and hypothyroidism. She also has a history of having been treated for cervical cancer. She smokes 1 pack of cigarettes daily, and she has history of polysubstance abuse. INTERIM HISTORY: She began cycle 1 of modified FOLFOX on 12/09/2018. It was administered without 5-FU bolus. She had been having nausea/vomiting prior to surgery the chemotherapy, and it worsened afterwards to the point that she required admission to the hospital for IV fluids and IV anti-emetics. She was sick for about a week after that treatment. Following discharge from the hospital she had no further nausea/vomiting. She continued with cycle 2 of modified FOLFOX on 12/22/2018 and with cycle 3 on 01/06/2019. At her follow-up visit on 01/20/2019 her treatment was put on hold pending outcome of a restaging PET/CT. That study was completed on 02/12/2019. It showed increased metabolic activity in the left upper abdominal mass measuring 3.2 x 2.0 cm, maximum SUV 6.29. Also noted were FDG avid upper retroperitoneal and para-aortic retroperitoneal lymph nodes, consistent with metastatic disease. There did not appear to be obvious disease progression compared to a prior CT scan from 10/28/2018. However, she also did not appear to be showing any significant response, and in the setting of worsening symptoms, I did opt to change her treatment to a FOLFIRI chemotherapy regimen in combination with Avastin. She began cycle 1 of FOLFIRI/Avastin on 03/09/2019. She did require IV hydration and antibiotics for chemotherapy-induced nausea/vomiting, but she otherwise tolerated it with acceptable toxicity. She continued with cycle 2 on 03/23/2019. Subsequent to that treatment she was given a course of Valtrex for suspected herpes zoster. At her followup visit on 04/13/2019 she was feeling better, and she continued with cycle 3 of FOLFIRI/Avastin. She subsequently returned with worsening cough and associated hemoptysis. Her chest CT on 04/17/2019 showed a thick-walled cavitary mass in the superior segment left lower lobe measuring 3.8 x 4.1 x 4.3 cm. The appearance was thought to be consistent with neoplasm versus infectious process. She was admitted to the hospital and began empiric antibiotic coverage with Presalin tazobactam and IV vancomycin. She was then discharged home to continue antibiotic coverage with levofloxacin and Augmentin. Her sputum subsequently came back positive for AFB, and the culture grew nocardia. She was then admitted to [facility] in [place] where she completed a course of IV antibiotic therapy with Primaxin and Bactrim. She was recommended to continue oral antibiotic coverage with Bactrim and minocycline for a total of 1 year of treatment. As of her follow-up visit on 07/07/2019 her chemotherapy remained on hold. She was having abdominal pain and nausea/vomiting. Abdominal x-ray at that time showed no bowel dilatation and no free air. She was given IV hydration and IV antiemetic therapy. On 08/10/2019 she ended up being admitted to [facility] in [place] where she underwent surgery for bowel perforation. She was discharged home with a surgical drain in place and on antibiotic coverage with linezolid 600 mg twice daily together with fluconazole 200 mg daily. I had seen her for a follow-up visit on 07/17/2019. At that point she had restarted antibiotic coverage with linezolid due to recurrence of abdominal pain. She had a repeat CT abdomen/pelvis on 10/26/2019. It showed no significant improvement in the left upper quadrant soft tissue mass which was noted to be inseparable from the stomach, splenic flexure, tail of pancreas, and superior left kidney. The appearance was felt to be consistent with abscess versus necrotic neoplasm. Also noted was left upper quadrant mesenteric tethering with increasing soft tissue deposits suspicious for metastatic lesions. There was increased soft tissue surrounding the aorta consistent with metastatic adenopathy versus fibrosis. There was evidence of parastomal hernia with no obstruction. With those findings, I did have her continue antibiotic therapy for the abscess. As of her followup visit in November 2019 she continued antibiotic coverage with linezolid. She appeared stable clinically with no obvious progression of the colon cancer. She was seen for a followup visit last week. She reported increased pain in her back and in her left side, and she had developed 2 knots on her spine. She was scheduled for repeat CT scan of the abdomen/pelvis, which was done this morning. It showed significant progression of the neoplastic process in left upper quadrant with invasion of the stomach, kidney, pancreas, and proximal jejunum. The invasion of the jejunum appeared to be causing moderate but incomplete small bowel obstruction. Also noted were increasing metastatic nodule deposits and lymph nodes around the celiac axis and encasement of the aorta by soft tissue at the level of the SMA and renal arteries. She has been feeling worse. Since Saturday she has been puking up brown liquid, and she has not been able to hold down solid or liquid intake. She has been passing liquid stool through the ostomy. She is having increased pain in the left upper quadrant area. She is weak, and she has mostly just been lying on the couch. Medications: Back & Body Extra Strength 2 (500-32.5 mg) Tablet Oral q 6 hours, Combivent Respimat 1 Puff(s) (of 20-100 mcg/act) Aerosol, solution Inhalation q 6 hours PRN, CVS Senna 1 Tablet (of 8.6 mg) Oral b.i.d., DOK Plus 1 Tablet (of 50-8.6 mg) Oral b.i.d., Lantus SoloStar 12 Units (of 100 Units/mL) Subcutaneous daily, LORazepam 1 mg Tablet Oral b.i.d. PRN, Ondansetron HCl 1 Tablet (of 8 mg) Oral q 8 to 12 hours PRN, oxyCODONE HCl ER 1 (15 mg) Tablet ER 12 HR Abuse-Deterrent Oral b.i.d., oxyCODONE-Acetaminophen 1 Tablet (of 10-325 mg) Oral q 8 hours PRN Allergies: Morphine Sulfate, PROzac, and Ziagen. Review of Systems: Constitutional - She has very poor energy. For the past several days she has mostly just been lying on her couch. She has not been able to hold down liquid or solid food. She has not had fever or night sweats. ECOG score is 3, ENMT - No mouth sores. No sore throat or difficulty swallowing, Hematologic/Lymphatic - No abnormal bruising or bleeding, Respiratory - No shortness of breath. No cough. No pleuritic pain or hemoptysis, Cardiovascular - No angina pain. No palpitations, Gastrointestinal - She has recurrent nausea/vomiting. She has been puking up brown stuff since Saturday, and she is not keeping down any solid or liquid intake. She has pain in her left upper quadrant area. She is passing only liquid, watery stool through her ostomy. She has not had any apparent blood in the stool, Genitourinary (F) - Bladder function is still okay. No dysuria or hematuria, Musculoskeletal - She has back pain, and she has been concerned about knots on her spine, Integumentary - No skin rash, Neurologic - No headache. She has been lightheaded when she stands up. No numbness or tingling. No other focal neurologic symptoms, Psychiatric - She has anxiety/depression. She had been sleeping okay. Vital Signs: Performed on Feb 17, 2020 10:24 Height - 65.00 in Temperature - 98.3 F (LOW) Pulse - 88 /min Respiration - 18 /min BP - 108/68 mm(hg) O2 Sat - 98 % Physical Examination: Constitutional - She appears generally weak, Eyes - Sclerae nonicteric. Conjunctivae clear, ENMT - No lesions noted in the oral cavity, Hematologic/Lymphatic - No cervical, clavicular, or axillary adenopathy, Respiratory - Lungs show some decrease in air movement bilaterally and there are coarse rales bilaterally, Cardiovascular - Heart rhythm is regular. There is no murmur, gallop, or rub noted, Abdomen - Soft. There is tenderness in the left upper quadrant area. Liver is not enlarged. There is no abdominal mass or ascites noted. Bowel sounds are present. There is no inguinal adenopathy, Extremities - No edema, Neurologic - No focal neurologic deficits noted. Lab/Imaging: Test performed on Feb 08, 2020 10:34 Glucose 113 mg/dL BUN 7 mg/dL Creatinine 0.64 mg/dL Cr Clearance (Est) 104.92 mL/min Sodium 140 mmol/L Potassium 4.0 mmol/L Chloride 106 mmol/L CO2 24 mmol/L Calcium 9.2 mg/dL Protein, Total 7.2 g/dL Albumin 3.6 g/dL Bilirubin, Total 0.2 mg/dL Alkaline Phosphatase 99 IU/L AST (SGOT) 10 IU/L ALT (SGPT) 6 IU/L WBC 11.4 10^9/L RBC 4.38 10^12/L HGB 11.0 g/dL HCT 34.8 % MCV 79.5 fl MCH 25.1 pg MCHC 31.6 g/dL RDW 19.9 % Platelet Count 683 10^9/L MPV 9.4 fL Neutrophils (Gran) 6.08 10^9/L Lymphocytes 3.51 10^9/L Monocytes 1.09 10^9/L Eosinophils 0.54 10^9/L Basophils 0.10 10^9/L Manual Lymphocytes 31 % Manual Monocytes 10 % Manual Eosinophils 5 % Manual Basophils 1 % CEA 2.3 ng/mL Impression: 1. 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 Her tumor was found to harbor a KRAS mutation, and it was found to be MMR proficient. 2. She underwent left hemicolectomy with transverse and colostomy on 09/25/2013. 3. Adjuvant chemotherapy was attempted but was suboptimal due to poor compliance. Treatment was limited to 4 cycles of adjuvant FOLFOX, completed in February 2014, followed by 2 additional cycles of CapOx, completed in June 2014. 4. 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 She had associated vaginal fistula with open draining wound. By clinical evaluation her disease was at least stage IIIA or possibly stage IV, depending on the status of small pulmonary nodules. 5. She underwent treatment with chemoradiation utilizing mitomycin C/capecitabine for chemosensitization. Radiation was completed on 11/28/2015 to a total dose of 5580 cGy. 6. On 12/12/2017 she underwent emergency exploratory laparotomy for perforated viscus following surveillance colonoscopy. The procedure included resection of perisplenic mass, splenectomy, omentectomy, reduction of prolapse colon, and reduction of parastomal hernia. Tumor was noted at the edge of the specimen. 7. Her postoperative course was complicated by abdominal abscess and by gastric leak, requiring additional surgeries including placement of LEIGHA gastrostomy jejunostomy feeding tube. Her other medical illnesses include: 8. Hypertension. 9. Hypertriglyceridemia. 10. COPD. 11. She has underlying HIV disease. 12. She has history of polysubstance abuse. 13. She has also been treated for cervical cancer. Her restaging PET/CT on 06/07/2018 showed a new minimally hypermetabolic left periaortic lymph node measuring 1.7 cm, SUV 2.4. It was felt to be suspicious for recurrence. There were no other suspicious lesions identified. As of her follow-up visit in June 2018 her clinical status had continued to show gradual improvement. Her PET/CT scan at that point had shown findings which were suggestive of disease progression, limited to mildly enlarged periaortic lymphadenopathy. With those findings, I had recommended observation/expectant management. In October she had presented with nausea/vomiting, and there was evidence of further disease progression by CT scan. At that point she was agreeable to restarting chemotherapy with modified FOLFOX. There was some delay while arrangements were made for placement of Port-A-Cath venous access device. She began cycle 1 of modified FOLFOX on 12/09/2018. Her nausea/vomiting initially had worsened, requiring hospital admission for IV hydration and IV anti-emetics. She subsequently felt better, and she was able to complete 2 additional cycles of treatment. Her treatment was then put on hold pending outcome of restaging PET/CT. It showed persistent disease in the left upper abdominal quadrant and in retroperitoneal lymph nodes. During that time she had developed worsening GI symptoms, and she also experienced a significant decline in her performance status. As such, I opted to change her treatment to a FOLFIRI chemotherapy regimen in combination with Avastin. She began cycle 1 of FOLFIRI/Avastin on 03/09/2019. She required IV hydration for postchemotherapy nausea/vomiting. She was able to continue with cycle 2 on 03/23/2019. She began cycle 3 on 04/13/2019 after a 1-week delay due to a skin eruption in the coccygeal/perineal area, thought to be due to herpes zoster. She had subsequently returned with worsening cough and development of hemoptysis. Her chest CT on 04/17/2019 showed thick walled a cavitary lesion in the upper lobe of the left lung. The appearance was felt to be consistent with neoplasm or infectious process. Her sputum was found to be positive for AFB, and the culture subsequently grew nocardia. She was admitted to [facility] in [place], where she completed a course of IV antibiotic therapy with Primaxin and Bactrim. She was then transitioned to oral antibiotic coverage with Bactrim and minocycline. She was recommended to continue it for a total of 1 year of treatment. Her chemotherapy remained on hold during this time. At her follow-up visit on 07/07/2019 she had presented with fairly acute onset of abdominal pain and vomiting. Her abdominal x-ray showed no bowel dilatation or free air, and she was given symptomatic management. In July she was admitted to [facility] where she underwent surgery for bowel perforation. She had been showing gradual recovery. As of her follow-up visit on 10/16/2019 she had restarted antibiotic coverage with linezolid due to recurrence of abdominal pain. A repeat CT abdomen/pelvis on 10/26/2019 showed persistent mass in the left upper quadrant consistent with necrotic neoplasm versus abscess. I did review that study with the radiologist, and it did appear likely that there was at least some residual abscess. Other findings, though, were suspicious for progression of the underlying neoplasm. With those findings, I did opt to have her continue antibiotic coverage with linezolid. She also was given Marinol for anorexia/nausea. As of her follow-up visit in November 2019 she was feeling somewhat better. However, at her followup visit on 02/09/2020 she reported significantly worsening of abdominal pain, and she had associated weight loss and declining performance status. She has since then developed recurrent vomiting of brown liquid. Her repeat CT abdomen/pelvis shows significant disease progression. She has CT and clinical findings consistent with developing small bowel obstruction. Plan: I have reviewed the CT scans with the radiation oncologist, and it may be feasable to treat her with palliative radiaton, as the likelihood of benefit with futher chemotherapy will be low. He has suggested that we verify with biopsy that it is a malignant process rather than abscess. In view of her recurrent vomiting, I am arranging for admission to the hospital and for CT directed biopsy of the involved area. Signed By: Quinn Cooney M.D. <<Signature on File>>
== END 2020-02-17 08:06 | disposition home or self-care (01) ==
LOC: RADWPI 08:09 → ONCMED 10:10
PROVIDERS: Visit Provider Internal Medicine Medical Oncology
DX: C20 Malignant neoplasm of rectum (principal); C18.4 Malignant neoplasm of transverse colon; C79.89 Secondary malignant neoplasm of other specified sites; C21.0 Malignant neoplasm of anus, unspecified; E03.9 Hypothyroidism, unspecified; I10 Essential (primary) hypertension; E78.1 Pure hyperglyceridemia; J44.9 Chronic obstructive pulmonary disease, unspecified; B20 Human immunodeficiency virus [HIV] disease; F19.11 Other psychoactive substance abuse, in remission; Z93.2 Ileostomy status; Z92.21 Personal history of antineoplastic chemotherapy; Z85.41 Personal history of malignant neoplasm of cervix uteri; Z90.49 Acquired absence of other specified parts of digestive tract
CPT/HCPCS: 71260; 74177; 96361; 96365; 96367; 96375; 99214; J1100; J2060; J2405; J7030; Q9967

== ENCOUNTER 2020-02-17 13:38 | Inpatient (IN) | payer MEDICARE, MEDICAID, SELFPAY ==
[2020-02-17] VITALS (10 sets, daily range): BP systolic 118–146; BP diastolic 67–88; PULSE 88–98; RESP 14–18; TEMP 36.6–36.9; O2SAT 95–100; BMI 18.6
--- NOTE | 2020-02-17 13:55 | W.ED.ABDPA2 ---
HPI - Abdominal Pain General: Chief Complaint: Abdominal Pain Stated Complaint: sent by breana cooney Time Seen by Provider: 02/17/20 13:55 History of Present Illness: HPI narrative: This patient is a 44-year-old female presenting with abdominal pain and vomiting. She says that since Saturday she has been throwing up feculent emesis. She has a history of cancer in her colon and has had a very complicated course. She had a colonoscopy and perforation. She ended up having surgery multiple times with complications and ended up with a colostomy. She sees Dr. Cooney and he did a CT of her abdomen this morning. That showed invasion of a neoplastic mass into the stomach, jejunum, kidney. This is thought to be causing partial obstruction. She was sent to the ED for COVID screening prior to direct admission. The plan is to admit her for CT-guided biopsy and radiation therapy. MD elicited complaint: abdominal pain Onset (ago): day(s) (5) Pain Consistency: constant Location: Diffuse Severity: moderate Quality: cramping and fullness Exacerbating factors: nothing Relieving factors: nothing Associated Symptoms: Reports anorexia and vomiting (Feculent); Denies chills and fever(s) Review of Systems General: Reports: 10 or more systems reviewed and unremarkable except in HPI and below Const: Denies: fever(s), chills, fatigue or malaise Eyes: Denies: change in vision ENMT: Denies: odynophagia Card: Denies: chest pain or swelling of feet/ankles Resp: Denies: dyspnea, productive cough or non-productive cough GI: Reports: vomiting (Feculent) : Denies: flank pain or difficulty voiding Musc: Denies: neck pain or back pain Skin/Breast: Denies: rash Neuro: Denies: headache(s), numbness in extremities or weakness in extremities Dexter/Lymph: Denies: easy bruising or easy bleeding PFSH ED PFSH: Medical History (Updated 02/17/20 @ 19:14 by Ronnie Escamilla MD) HIV (human immunodeficiency virus infection) Polysubstance abuse Surgical History (Updated 02/17/20 @ 19:11 by Ronnie Escamilla MD) History of colonoscopy History of hemicolectomy Family History (Updated 02/17/20 @ 19:12 by Ronnie Escamilla MD) Other Cancer Social History (Updated 02/17/20 @ 19:12 by Ronnie Escamilla MD) Smoking and tobacco status: current every day smoker Alcohol intake: never Substance/Drug Use: former Physical Exam Const: COMMON NORMALS: no acute distress, patient oriented x3, no limitations and alert GENERAL APPEARANCE: cooperative HENMT: HEAD & SCALP: normal to inspection FACE & SINUS: normal facial exam Eye: GENERAL EYE: appearance normal, both eyes and all related structures Neck/C-Spine: COMMON NORMALS: supple, no meningeal signs and no JVD Chest: COMMONS NORMALS: normal inspection of the chest Resp: COMMON NORMALS: normal respiratory effort, No use of accessory muscles and clear to auscultation bilaterally AUSCULTATION: clear to auscultation bilaterally Cardio: COMMON NORMALS: no JVD, regular rate, regular rhythm and No murmurs present (Cardio) RATE: regular rate RHYTHM: regular rhythm GI: COMMON NORMALS: Normal to inspection, nondistended, normoactive bowel sounds present and Soft to palpation INSPECTION: Yes normal to inspection, Yes scar and Yes other (Colostomy, only a small amount of brownish liquid in the bag) AUSCULTATION: Yes normoactive bowel sounds PALPATION: Yes Soft to palpation and Yes Tenderness to palpation present (GI) (Diffusely, much greater on the left upper and lower) Back/Pelvis: COMMON NORMALS: thoracic and lumbar spine normal to inspection Extremity: COMMON NORMALS: normal to inspection Neuro: COMMON NORMALS: patient oriented x3, moves all extremities, no focal motor deficits and no sensory deficits noted SENSORIUM/ORIENTATION: Yes alert MENINGEAL SIGNS: Yes no meningeal signs Psych: COMMON NORMALS: mental status grossly normal, cooperative and normal affect MOOD & AFFECT: Yes depressed mood, Yes anxious and Yes tearful Skin: COMMON NORMALS: no rashes or lesions noted and turgor normal GENERAL SKIN EXAM: no rashes or lesions noted and turgor normal Course ED course: Discussed with Dr. Cooney, Dr. Mg. Will admit to the hospitalist for work-up. Pain medication administered IV. Vital Signs: Vital signs: Vital Signs Temperature 97.8 F 02/17/20 18:31 Pulse Rate 98 02/17/20 18:31 Respiratory Rate 18 02/17/20 18:31 Blood Pressure 124/78 02/17/20 18:31 Pulse Oximetry 97 02/17/20 18:31 MDM - Abdominal Pain Lab Data: Labs: Lab Results 02/17/20 02/17/20 02/17/20 Range/Units 14:52 14:52 14:52 WBC 8.6 (4.0-10.0) 10^3/ uL RBC 3.97 L (4.1-5.3) 10^6/u L Hgb 9.9 L (11.5-15.3) g/dL Hct 32.2 L (37.0-47.0) % MCV 81.1 (81-99) fL MCH 24.9 L (28.0-34.0) pg MCHC 30.7 (30.0-36.0) g/dL RDW 19.0 H (12.1-15.1) % Plt Count 611 H (130-400) 10^3/c mm MPV 10.0 (7.4-10.4) fL Neut % (Auto) 83.6 % Lymph % (Auto) 14.0 % [place] % (Auto) 1.1 % Eos % (Auto) 0.4 % Baso % (Auto) 0.5 % Neut # (Auto) 7.18 (1.8-7.7) 10^3/u L Lymph # (Auto) 1.2 (0.8-4.8) 10^3/u L [place] # (Auto) 0.1 L (0.2-0.9) 10^3/u L Eos # (Auto) 0.0 (0.0-0.8) 10^3/u L Baso # (Auto) 0.0 (0.0-0.1) 10^3/u L Nucleated RBC % (a uto) 0 % Nucleated RBCs # 0.0 /100WBC PT 13.70 (12.1-14.9) SECO NDS INR 1.02 (0.8-1.2) Sodium 137 (136-145) mmol/L Potassium 3.9 (3.5-5.1) mmol/L Chloride 103 (98-107) mmol/L Carbon Dioxide 26 (22-29) mmol/L Anion Gap 11.9 (5-19) BUN 7 (6-20) mg/dL Creatinine 0.6 (0.5-0.9) mg/dL GFR Calculation 108.1 (90-130) mL/min Glucose 211 H (65-115) mg/dL Calculated Osmolal ity 286 (285-295) mOsm/k g Lactic Acid (0.5-2.2) mmol/L Calcium 8.7 (8.5-10.5) mg/dL Total Bilirubin 0.3 (0.15-1.2) mg/dL AST 20 (0-32) U/L ALT 12 (0-33) U/L Alkaline Phosphata se 98 (35-105) IU/L Total Protein 6.8 (6.6-8.7) g/dL Albumin 3.3 L (3.5-5.2) g/dL Globulin 3.5 (1.3-4.6) g/dL Lipase 17 (13-60) U/L 02/17/20 Range/Units 14:52 WBC (4.0-10.0) 10^3/ uL RBC (4.1-5.3) 10^6/u L Hgb (11.5-15.3) g/dL Hct (37.0-47.0) % MCV (81-99) fL MCH (28.0-34.0) pg MCHC (30.0-36.0) g/dL RDW (12.1-15.1) % Plt Count (130-400) 10^3/c mm MPV (7.4-10.4) fL Neut % (Auto) % Lymph % (Auto) % [place] % (Auto) % Eos % (Auto) % Baso % (Auto) % Neut # (Auto) (1.8-7.7) 10^3/u L Lymph # (Auto) (0.8-4.8) 10^3/u L [place] # (Auto) (0.2-0.9) 10^3/u L Eos # (Auto) (0.0-0.8) 10^3/u L Baso # (Auto) (0.0-0.1) 10^3/u L Nucleated RBC % (a uto) % Nucleated RBCs # /100WBC PT (12.1-14.9) SECO NDS INR (0.8-1.2) Sodium (136-145) mmol/L Potassium (3.5-5.1) mmol/L Chloride (98-107) mmol/L Carbon Dioxide (22-29) mmol/L Anion Gap (5-19) BUN (6-20) mg/dL Creatinine (0.5-0.9) mg/dL GFR Calculation (90-130) mL/min Glucose (65-115) mg/dL Calculated Osmolal ity (285-295) mOsm/k g Lactic Acid 1.7 (0.5-2.2) mmol/L Calcium (8.5-10.5) mg/dL Total Bilirubin (0.15-1.2) mg/dL AST (0-32) U/L ALT (0-33) U/L Alkaline Phosphata se (35-105) IU/L Total Protein (6.6-8.7) g/dL Albumin (3.5-5.2) g/dL Globulin (1.3-4.6) g/dL Lipase (13-60) U/L Discharge Plan Discharge Patient Disposition: Admitted As Inpatient Admit Provider: Ronnie Escamilla Condition: Good Discharge Date/Time: 02/17/20 18:15 Coding Level of Care Code ED [employer] Developer for Chg Fwd Exam Comprehensive
[2020-02-17] MEDS: sodium chloride 0.9% 1,000 ML 999 ML IV (14:48)
[2020-02-17] MEDS: ondansetron 2 mg/ML SDV 2 mL 4 MG IVP (14:50)
[2020-02-17] MEDS: LORazepam 2 mg/mL INJ 1 mL 0.5 MG IVP ×2 (14:50→21:05)
[2020-02-17] MEDS: HYDROmorphone 1 mg/mL INJ 1 mL 0.5 MG IVP (14:50)
[2020-02-17 15:00] LABS: Basophils % 0.5 %; Eosinophils % 0.4 %; Hematocrit 32.2 % (37.0-47.0); Hemoglobin 9.9 g/dL (11.5-15.3); Lymphocytes # 1.2 10^3/uL (0.8-4.8); Mean Corpuscular HGB Conc 30.7 g/dL (30.0-36.0); Mean Corpuscular Hemoglobin 24.9 pg (28.0-34.0); Mean Corpuscular Volume 81.1 fL (81-99); Monocytes # 0.1 10^3/uL (0.2-0.9); Monocytes % 1.1 %; Neutrophils # 7.18 10^3/uL (1.8-7.7); Neutrophils % 83.6 %; Nucleated Red Blood Cells % 0 %; Platelet Count 611 10^3/cmm (130-400); Red Blood Count 3.97 10^6/uL (4.1-5.3); White Blood Count 8.6 10^3/uL (4.0-10.0)
[2020-02-17 15:11] LABS: INR 1.02 (0.8-1.2)
[2020-02-17 15:16] LABS: Alanine Aminotransferase 12 U/L (0-33); Albumin Level 3.3 g/dL (3.5-5.2); Alkaline Phosphatase 98 IU/L (35-105); Anion Gap 11.9 (5-19); Aspartate Amino Transferase 20 U/L (0-32); Blood Urea Nitrogen 7 mg/dL (6-20); Carbon Dioxide 26 mmol/L (22-29); Chloride 103 mmol/L (98-107); Globulin 3.5 g/dL (1.3-4.6); Glomerular Filtration Rate 108.1 mL/min (90-130); Glucose 211 mg/dL (65-115); Lipase 17 U/L (13-60); Osmolality Calculated 286 mOsm/kg (285-295); Potassium 3.9 mmol/L (3.5-5.1); Sodium 137 mmol/L (136-145); Total Bilirubin 0.3 mg/dL (0.15-1.2); Total Protein 6.8 g/dL (6.6-8.7)
[2020-02-17 15:17] LABS: Lactic Sepsis W/Reflex 1.7 mmol/L (0.5-2.2)
[2020-02-17 15:34] LABS: Calcium 8.7 mg/dL (8.5-10.5)
[2020-02-17] MEDS: LORazepam 2 mg/mL INJ 1 mL 1 MG IVP (17:28)
--- NOTE | 2020-02-17 18:58 | PM.HP ---
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 Cooney's office due to concerns for partial small bowel obstruction, dehydration, and the need for biopsy. Patient had a follow-up with Dr. Cooney last week, had a CT scan, which showed progression of a neoplastic process in the left upper quadrant, with localized invasion, resulting in incomplete small bowel obstruction. Dr. Cooney was concerned for partial small bowel obstruction, dehydration, and he wanted to her to undergo a biopsy of the mass, so patient was sent to [facility] for evaluation and to be admitted. Currently patient is very agitated with me, she states that she wants to leave the hospital, she wants to smoke, she will leave AGAINST MEDICAL ADVICE. She states that smoking is the last thing she has. Her daughter at bedside is trying to calm her down. But patient states that she wants to leave. It is hard to get any information from her, as she is fairly agitated, she tells me she has had adequate output from her colostomy this morning, no abdominal pain, no nausea, no vomiting, she feels that she is hydrated, and wants to leave. No fevers, no chills, no recent travel, no shortness of breath, no chest pain. 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 On 12/12/2017 she underwent exploratory laparotomy for perforated viscus following surveillance colonoscopy, procedure included resection of the josh-splenic mass, splenectomy, omentectomy, reduction of prolapsed colon, reduction of parastomal hernia. On repeat PET scan on May 2018, she was found to have a periaortic lymph node that was suspicious for disease progression, she underwent chemotherapy treatment which was complicated with dehydration. Patient also was found on 04/17/2019 to have a little cavitary lesion of the upper left lung, that proved to be nocardia, admitted at [facility], received IV antibiotics. On her follow-up visit on 11/15/2019, she showed a persistent mass in the left upper quadrant consistent with necrotic neoplasm versus abscess, she has been on antibiotics linezolid. Review of Systems Const: Denies: fever(s) Card: Denies: chest pain Resp: Denies: dyspnea GI: Denies: abdominal pain, nausea, vomiting, hematemesis, heartburn, early satiety, diarrhea, GI cramping, hematochezia or melena : Denies: flank pain Musc: Denies: neck pain Skin/Breast: Denies: rash Neuro: Denies: headache(s) Psych: Reports: anxiety Medications/Allergies Home Medications Medication Instructions Recorded Confirmed Last Taken Type cuzsqitqq-rxqs-cuwgm-tenof ala 1 tab PO DAILY 02/17/20 02/17/20 02/16/20 History [Symtuza] hydrocodone-acetaminophen 1 tab PO QID PRN 02/17/20 02/17/20 02/16/20 History oxycodone 15 mg PO QID PRN 02/17/20 02/17/20 02/17/20 History sennosides [senna] 30 ml PO DAILY 02/17/20 02/17/20 02/16/20 History Allergies Allergy/AdvReac Type Severity Reaction Status Date / Time morphine Allergy ALGY-Anaphy Verified 02/17/20 15:07 laxis PFSH Acute PFSH: Medical History (Updated 02/17/20 @ 19:14 by Ronnie Escamilla MD) HIV (human immunodeficiency virus infection) Polysubstance abuse Surgical History (Updated 02/17/20 @ 19:11 by Ronnie Escamilla MD) History of colonoscopy History of hemicolectomy Family History (Updated 02/17/20 @ 19:12 by Ronnie Escamilla MD) Other Cancer Social History (Updated 02/17/20 @ 19:12 by Ronnie Escamilla MD) Smoking and tobacco status: current every day smoker Alcohol intake: never Substance/Drug Use: former Vitals/I&O/Wt Last Vital Signs Temp 97.8 F 02/17/20 18:31 Pulse 98 02/17/20 18:31 Resp 18 02/17/20 18:31 BP 124/78 02/17/20 18:31 Pulse Ox 97 02/17/20 18:31 02/17/20 02/17/20 02/17/20 06:59 14:59 22:59 Intake Total 1000 / 1000 Balance 1000 / 1000 Weight last 48 hrs Weight 50.802 kg Physical Exam Const: COMMON NORMALS: no acute distress GENERAL APPEARANCE: anxious HENMT: COMMON NORMALS: normocephalic HEAD & SCALP: normocephalic Neck/C-Spine: COMMON NORMALS: no JVD Resp: COMMON NORMALS: normal respiratory effort, No retractions, No use of accessory muscles and clear to auscultation bilaterally AUSCULTATION: clear to auscultation bilaterally Cardio: COMMON NORMALS: no JVD, regular rate, regular rhythm, S1 normal heart sound present and S2 normal heart sound present RATE: regular rate RHYTHM: regular rhythm HEART SOUNDS: S1 normal heart sound present and S2 normal heart sound present GI: COMMON NORMALS: Soft to palpation, non-tender, No hepatosplenomegaly present and no bruits INSPECTION: Yes abdominal distension PALPATION: Yes Soft to palpation, No Tenderness to palpation present (GI), No Guarding due to palpation present (GI), No Rigid due to palpation, Yes No hepatosplenomegaly present and No Rebound tenderness present OTHER: Colostomy in place Left upper quadrant density Extremity: COMMON NORMALS: capillary refill normal, no clubbing, cyanosis or edema, no calf tenderness and no pedal edema Neuro: COMMON NORMALS: patient oriented x3 Psych: COMMON NORMALS: mental status grossly normal Data : 02/17/20 14:52 02/17/20 14:52 A&P Assessment and plan (1) Colon cancer: -With concerns for reoccurrence/metastasis -Repeat CT scan shows 1. Significant progression of the neoplastic process in the LEFT upper quadrant with invasion of the stomach, kidney, pancreas and proximal jejunum. Invasion of the jejunum is resulting in a moderate but incomplete small bowel obstruction. 2. Marked distention of the stomach and proximal small bowel due to the partial obstruction in the proximal jejunum. 3. Increasing metastatic nodule deposits and lymph nodes around the celiac axis and encasement of the aorta by soft tissue at the level of the SMA and renal arteries. Suspect tumor encasement. 4. Mild progression of intrahepatic duct dilatation. Prior cholecystectomy. 5. LEFT lower quadrant ostomy with parastomal herniation of colon and no obstruction. 6. Cystic cavity with thin wall superior segment LEFT lower lobe corresponds to the previously described cavitary lesion with thick wall which was probably a neoplasm. 7. Mildly heterogeneous appearance to both the pelvis. 8. Early metastatic disease not excluded. -I have been asked to admit patient, will speak to radiology in the morning about doing a CT-guided biopsy, recheck to Dr. Cooney tomorrow morning Status: Acute (2) Current smoker: Status: Acute (3) Hyperlipidemia: Status: Acute (4) Hypertension: Status: Acute (5) COPD (chronic obstructive pulmonary disease): Status: Acute (6) Squamous cell carcinoma of anus: Status: Acute (7) Partial small bowel obstruction: -Having adequate output from colostomy, no abdominal pain, no significant bowel distention, no nausea, no vomiting -Started on clear liquid diet, IV fluids, monitor electrolytes -N.p.o. midnight for surgical procedure -Lovenox for DVT prophylaxis -Full code -Patient is already threatening to leave AGAINST MEDICAL ADVICE, advised the risk of the risks, advised of the morbidity and mortality associated, voiced understanding, all questions answered, will see if patient stays at night Status: Acute Attestations Medical Necessity Statement*: Patient requires hospitalization, inpatient, greater than 2 midnights, for recurrence of colon cancer, small bowel obstruction Coding Level of Care Code Acute Decorating Supervisor for g Fwd Diagnoses Colon cancer C18.9 Current smoker F17.200 Hyperlipidemia E78.5 Hypertension I10 COPD (chronic obstructive pulmonary disease) J44.9 Squamous cell carcinoma of anus C21.0 Partial small bowel obstruction K56.600
[2020-02-17] MEDS: heparin 5,000 unit/mL INJ 1 mL 5000 UNIT SUBCUT (19:33)
[2020-02-17] MEDS: HYDROcodone-acetaminophen 10-325 mg Tablet 1 TAB PO (19:33)
[2020-02-17] MEDS: sodium chloride 0.9% 1,000 ML 100 ML IV (19:33)
[2020-02-17 19:55] LABS: Lactic Sepsis W/Reflex 2.5 mmol/L (0.5-2.2)
[2020-02-17 20:03] LABS: Thyroid Stimulating Hormone 0.84 uIU/mL (0.27-4.20)
[2020-02-17 21:16] LABS: Reflex Lactate Order REFLEX LACTIC ORDERD
[2020-02-17 21:22] LABS: Erythrocyte Sedimentation Rate 21 mm/hr (0-15)
[2020-02-17 22:21] LABS: Lactic Acid level (Lactate) 2.2 mmol/L (0.5-2.2)
[2020-02-18] MEDS: diphenhydrAMINE 50 mg/mL SDV 1mL 25 MG IVP (00:12)
[2020-02-18 00:58] LABS: Procalcitonin 0.05 ng/mL (0-0.5)
[2020-02-18 01:16] LABS: C Reactive Protein 2.3 mg/L (0.0-4.9)
[2020-02-18 04:00] VITALS: BP 139/76; PULSE 89; RESP 18; TEMP 37; O2SAT 97
[2020-02-18 05:50] LABS: Basophils % 0.5 %; Hematocrit 27.6 % (37.0-47.0); Hemoglobin 8.6 g/dL (11.5-15.3); Lymphocytes # 2.5 10^3/uL (0.8-4.8); Lymphocytes % 30.6 %; Mean Corpuscular HGB Conc 31.2 g/dL (30.0-36.0); Mean Corpuscular Hemoglobin 25.4 pg (28.0-34.0); Mean Corpuscular Volume 81.7 fL (81-99); Mean Platelet Volume 10.3 fL (7.4-10.4); Neutrophils # 4.54 10^3/uL (1.8-7.7); Neutrophils % 56.5 %; Nucleated Red Blood Cells % 0 %; Platelet Count 569 10^3/cmm (130-400); Red Blood Count 3.38 10^6/uL (4.1-5.3); Red Cell Distribution Width 18.8 % (12.1-15.1)
[2020-02-18 06:11] LABS: INR 1.09 (0.8-1.2)
[2020-02-18] MEDS: heparin 5,000 unit/mL INJ 1 mL 5000 UNIT SUBCUT (06:21)
[2020-02-18] MEDS: sodium chloride 0.9% 1,000 ML 100 ML IV (06:21)
[2020-02-18 06:23] LABS: Alanine Aminotransferase 15 U/L (0-33); Albumin Level 3.1 g/dL (3.5-5.2); Alkaline Phosphatase 82 IU/L (35-105); Anion Gap 11.5 (5-19); Aspartate Amino Transferase 17 U/L (0-32); Blood Urea Nitrogen 7 mg/dL (6-20); Calcium 8.4 mg/dL (8.5-10.5); Carbon Dioxide 22 mmol/L (22-29); Chloride 109 mmol/L (98-107); Globulin 2.7 g/dL (1.3-4.6); Glomerular Filtration Rate 108.1 mL/min (90-130); Glucose 98 mg/dL (65-115); Magnesium 1.8 mg/dL (1.7-2.3); Osmolality Calculated 284 mOsm/kg (285-295); Potassium 3.5 mmol/L (3.5-5.1); Sodium 139 mmol/L (136-145); Total Bilirubin 0.3 mg/dL (0.15-1.2); Total Protein 5.8 g/dL (6.6-8.7)
[2020-02-18 06:25] VITALS: RESP 18
[2020-02-18] MEDS: oxyCODONE 5 mg IR Tab/Cap 10 MG PO ×2 (06:25→11:44)
[2020-02-18 07:43] VITALS: BP 144/83; PULSE 89; RESP 17; TEMP 36.4; O2SAT 97
[2020-02-18] MEDS: LORazepam 2 mg/mL INJ 1 mL 0.5 MG IVP (08:32)
[2020-02-18 11:22] VITALS: BP 150/87; PULSE 82; RESP 17; TEMP 36.8; O2SAT 100
--- NOTE | 2020-02-18 11:32 | PC.CHAP ---
Pastoral Care Encounter/Spiritual Assessment Type of Contact [] Declined human resources compliance manager visit [] Patient/Family/Request visit [] Outpatient visit [] Follow-up visit [] Physician referral [] Code/Alert [x] Routine visit [] Staff referral [] Actively dying [] Patient sleeping [] Family support [] [] Out of room [] Palliative care [] [] Receiving care in room [] Pre-surgical visit [] Trauma [] Long length of stay [] ICU visit [] Other: Relational/Emotional Strength [x] Patient feels connected with others/family/visitors/staff [] Distress [] Loneliness/isolation [] Abandonment Spirituality of Patient [x] Person of Ju [x] Attends Restorationism of their Ju [x] Believes in Prayer [] Reads Bible or Spiritism materials [] There are Spiritual issues to be addressed Fast Food Shift Lead Interventions [x] Prayer [x] Active listening [x] Non-anxious presence [x] Spiritual/emotional support [] Crisis/trauma care [] Spiritual counseling [] Bereavement support [] Provided bereavement packet [] Provided Bible/devotional materials [] Provided toy/stuffed animal, coloring book to patient or family member [] Provided Communion [] Anointing/[place] [] Salvation [x] Completed spiritual assessment [] Other: Impact on Illness or Injury [] Angry [] Fearful [] Anxious [] Often cries [] Exhaustion [] Unable to work [] Unable to attend denominational [] Unable to walk/stand [] Unable to read [] Unable to drive [] Unable to eat/drink [] Unable to sleep [] Unable to be with family [] Patient intubated [x] Other: Summary Patient is a professed follower of [employer] and attends fellowship in [place]. Time spent with patient 5 minutes
[2020-02-18 11:44] VITALS: RESP 16; O2SAT 96
--- NOTE | 2020-02-18 12:59 | PC.NURSE ---
Bridgette note This staff member spoke with Rekha, patient's mother who is on the hippa form to speak with. She stated her daughter, the patient, had told her staff had lied and told the procedure was at 16:00. This staff member stated she had not been informed that the procedure was changed and as far as was known it was still scheduled at 14:00. Rekha stated she understood and would like to be called when the procedure ended. This staff member assured her the primary nurse would call her and let her know when it was over. All questions were answered and no other needs were noted.
--- NOTE | 2020-02-18 14:07 | PM.PN ---
Subjective Subjective: Interval history: This morning patient is quite teary, she states that she wants to go outside for smoke, she wants to go outside to see her family members, at one point she started to walk the hallways threatening to leave AGAINST MEDICAL ADVICE, states that she wants to leave the hospital I went over the CT-guided biopsy with patient, she is really worried about complications, I advised that it is a difficult biopsy, there is risks associate with the biopsy, that include but not limited to bleeding from the intercostal artery, pneumothorax, bowel perforation, significant bleeding, infection, but I will have radiology go over the additional risk factors. Patient at 1 point stated that she might want to leave the hospital and do the biopsy at a bigger hospital, I gave her the option to be transferred to [facility], but she did not make up her mind, stated that she would stay here to have the biopsy. But at other times she gets up and wants to leave AGAINST MEDICAL ADVICE. patient has decent colostomy output, no abdominal pain, she is tolerating a clear liquid diet well, no significant pain from the partial small bowel obstruction Vitals/I&O/Wt Last Vital Signs Temp 98.3 F 02/18/20 11:22 Pulse 82 02/18/20 11:22 Resp 16 02/18/20 11:44 BP 150/87 02/18/20 11:22 Pulse Ox 96 02/18/20 11:44 02/17/20 02/18/20 02/18/20 22:59 06:59 14:59 Intake Total 1000 / 1000 1000 / 1999 Balance 1000 / 1000 1000 / 1999 Weight last 48 hrs Weight 50.802 kg Physical Exam Const: COMMON NORMALS: patient oriented x3 GENERAL APPEARANCE: anxious HENMT: COMMON NORMALS: normocephalic HEAD & SCALP: normocephalic Neck/C-Spine: COMMON NORMALS: no JVD Resp: COMMON NORMALS: normal respiratory effort, No retractions, No use of accessory muscles and clear to auscultation bilaterally AUSCULTATION: clear to auscultation bilaterally Cardio: COMMON NORMALS: no JVD, regular rate, regular rhythm, S1 normal heart sound present and S2 normal heart sound present RATE: regular rate RHYTHM: regular rhythm HEART SOUNDS: S1 normal heart sound present and S2 normal heart sound present GI: COMMON NORMALS: Soft to palpation, non-tender, No hepatosplenomegaly present and no bruits INSPECTION: Yes abdominal distension PALPATION: Yes Soft to palpation, No Tenderness to palpation present (GI), No Guarding due to palpation present (GI), No Rigid due to palpation, Yes No hepatosplenomegaly present and No Rebound tenderness present OTHER: Colostomy in place Left upper quadrant density Extremity: COMMON NORMALS: capillary refill normal, no clubbing, cyanosis or edema, no calf tenderness and no pedal edema Neuro: COMMON NORMALS: patient oriented x3 Psych: COMMON NORMALS: mental status grossly normal Data : 02/18/20 05:04 02/18/20 05:04 A&P Assessment and plan (1) Colon cancer: -With concerns for reoccurrence/metastasis -Repeat CT scan shows 1. Significant progression of the neoplastic process in the LEFT upper quadrant with invasion of the stomach, kidney, pancreas and proximal jejunum. Invasion of the jejunum is resulting in a moderate but incomplete small bowel obstruction. 2. Marked distention of the stomach and proximal small bowel due to the partial obstruction in the proximal jejunum. 3. Increasing metastatic nodule deposits and lymph nodes around the celiac axis and encasement of the aorta by soft tissue at the level of the SMA and renal arteries. Suspect tumor encasement. 4. Mild progression of intrahepatic duct dilatation. Prior cholecystectomy. 5. LEFT lower quadrant ostomy with parastomal herniation of colon and no obstruction. 6. Cystic cavity with thin wall superior segment LEFT lower lobe corresponds to the previously described cavitary lesion with thick wall which was probably a neoplasm. 7. Mildly heterogeneous appearance to both the pelvis. 8. Early metastatic disease not excluded. -We will have a CT-guided biopsy this afternoon Status: Acute (2) Current smoker: Status: Acute (3) Hyperlipidemia: Status: Acute (4) Hypertension: Status: Acute (5) COPD (chronic obstructive pulmonary disease): Status: Acute (6) Squamous cell carcinoma of anus: Status: Acute (7) Partial small bowel obstruction: -Having adequate output from colostomy, no abdominal pain, no significant bowel distention, no nausea, no vomiting -Started on clear liquid diet, IV fluids, monitor electrolytes -N.p.o. midnight for surgical procedure -Lovenox for DVT prophylaxis -Full code -Patient is already threatening to leave AGAINST MEDICAL ADVICE, advised the risk of the risks, advised of the morbidity and mortality associated, voiced understanding, all questions answered, will see if patient stays at night Status: Acute Attestations Medical Necessity Statement*: Hospitalization for partial small bowel obstruction, dehydration, left upper quadrant abdominal mass Coding Level of Care Code Acute Engine Repairer Production for [facility] Fwd Diagnoses Colon cancer C18.9 Current smoker F17.200 Hyperlipidemia E78.5 Hypertension I10 COPD (chronic obstructive pulmonary disease) J44.9 Squamous cell carcinoma of anus C21.0 Partial small bowel obstruction K56.600
--- NOTE | 2020-02-18 14:43 | PC.NURSE ---
report writer was called into the room, pt is upset that the time for her ct has been moved three times now, she wants to leave AMA, Dr. Escamilla was notified. report writer explained that the procedure and its importance and how hard we are working to get it set up. pt is alert and oriented times 4. she signed AMA form, RN de-accessed port. pt ambulated off floor. Manager Drug was then notified of pt mother who is on the hippa form was on the phone requesting an update, report writer explained pt is alert and able to make own decisions and chose to leave AMA, pts mother was very concerned.
--- NOTE | 2020-02-18 14:47 | PM.DCS ---
Discharge Providers Date of Admission: 02/17/20 17:02 Date of Discharge: February 18, 2020 Attending Provider at Admission: Ronnie Escamilla MD Attending Provider at Discharge: Ronnie Escamilla MD Diagnoses at Discharge Discharge Diagnosis (1) Colon cancer: Status: Acute (2) Current smoker: Status: Acute (3) Hyperlipidemia: Status: Acute (4) Hypertension: Status: Acute (5) COPD (chronic obstructive pulmonary disease): Status: Acute (6) Squamous cell carcinoma of anus: Status: Acute (7) Partial small bowel obstruction: Status: Acute Reason for Visit Reason for Visit: lower abd pain Hospital Course Discharge Summary: Patient left AGAINST MEDICAL ADVICE Flaca Caceres is a 44 year old female with a past medical history of recurrent/metastatic colon cancer, 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 Cooney's office due to concerns for partial small bowel obstruction, dehydration, and the need for biopsy for left upper quadrant mass concerning for recurrent colon cancer Patient was admitted to the general medical floors, received IV hydration, kept n.p.o., in preparation for her planned biopsy CT-guided by radiology. In terms of her partial small bowel obstruction, had good colostomy output, did get a clear liquid diet before midnight, tolerated well. However there was issues in terms of getting her CT guided biopsy done as inpatient, staffing issues, her biopsy was delayed a bit, but was going to be performed today or tomorrow. However patient was quite agitated, wanted to go out and smoke, wanted to go outside to visit family, left AGAINST MEDICAL ADVICE. I advised patient given her partial small bowel obstruction, and her large left upper quadrant mass she has a high risk of morbidity and mortality if not intervened on. I advised of the significant risk of including but not limited to perforation, high risk of ICU admission, sepsis, septic shock, intubation, cardiac arrest, significant morbidity mortality, voiced understanding, all questions answered, patient left AGAINST MEDICAL ADVICE. Physical Exam Const: COMMON NORMALS: no acute distress and patient oriented x3 GENERAL APPEARANCE: anxious HENMT: COMMON NORMALS: normocephalic HEAD & SCALP: normocephalic Neck/C-Spine: COMMON NORMALS: no JVD Resp: COMMON NORMALS: normal respiratory effort, No retractions, No use of accessory muscles and clear to auscultation bilaterally AUSCULTATION: clear to auscultation bilaterally Cardio: COMMON NORMALS: no JVD, regular rate, regular rhythm, S1 normal heart sound present and S2 normal heart sound present RATE: regular rate RHYTHM: regular rhythm HEART SOUNDS: S1 normal heart sound present and S2 normal heart sound present GI: COMMON NORMALS: Soft to palpation, non-tender, No hepatosplenomegaly present and no bruits INSPECTION: Yes abdominal distension PALPATION: Yes Soft to palpation, No Tenderness to palpation present (GI), No Guarding due to palpation present (GI), No Rigid due to palpation, Yes No hepatosplenomegaly present and No Rebound tenderness present OTHER: Colostomy in place Left upper quadrant density Extremity: COMMON NORMALS: capillary refill normal, no clubbing, cyanosis or edema, no calf tenderness and no pedal edema Neuro: COMMON NORMALS: patient oriented x3 Psych: COMMON NORMALS: mental status grossly normal Discharge Data Data Completed and Pending: Pending at discharge Category Date Time Status CT guided biopsy [id number] Routine Cat Scan 02/18/20 08:58 Ordered Complete Blood Co unt w/Auto AM LABS Lab 02/19/20 04:00 Ordered Complete Blood Co unt w/Auto AM LABS Lab 02/20/20 04:00 Ordered Comprehensive Met abolic Panel AM LA BS Lab 02/19/20 04:00 Ordered Comprehensive Met abolic Panel AM LA BS Lab 02/20/20 04:00 Ordered Magnesium AM LABS Lab 02/19/20 04:00 Ordered Magnesium AM LABS Lab 02/20/20 04:00 Ordered Phosphorus AM LAB S Lab 02/19/20 04:00 Ordered Phosphorus AM LAB S Lab 02/20/20 04:00 Ordered Prothrombin Time INR AM LABS Lab 02/19/20 04:00 Ordered Prothrombin Time INR AM LABS Lab 02/20/20 04:00 Ordered Labs from last 24 hours 02/18/20 02/18/20 02/18/20 05:04 05:04 05:04 WBC 8.0 RBC 3.38 L Hgb 8.6 L Hct 27.6 L MCV 81.7 MCH 25.4 L MCHC 31.2 RDW 18.8 H Plt Count 569 H MPV 10.3 Neut % (Auto) 56.5 Lymph % (Auto) 30.6 Wolfe % (Auto) 12.0 Eos % (Auto) 0.0 Baso % (Auto) 0.5 Neut # (Auto) 4.54 Lymph # (Auto) 2.5 Wolfe # (Auto) 1.0 H Eos # (Auto) 0.0 Baso # (Auto) 0.0 Nucleated RBC % (a uto) 0 Nucleated RBCs # 0.0 ESR PT 14.40 INR 1.09 Sodium 139 Potassium 3.5 Chloride 109 H Carbon Dioxide 22 Anion Gap 11.5 BUN 7 Creatinine 0.6 GFR Calculation 108.1 Glucose 98 Calculated Osmolal ity 284 L Lactic Acid Lactic Acid (Sepsi s) Calcium 8.4 L Phosphorus 3.0 Magnesium 1.8 Total Bilirubin 0.3 AST 17 ALT 15 Alkaline Phosphata se 82 C-Reactive Protein Total Protein 5.8 L Albumin 3.1 L Globulin 2.7 Lipase Procalcitonin TSH 02/17/20 02/17/20 02/17/20 22:00 19:22 19:22 WBC RBC Hgb Hct MCV MCH MCHC RDW Plt Count MPV Neut % (Auto) Lymph % (Auto) Wolfe % (Auto) Eos % (Auto) Baso % (Auto) Neut # (Auto) Lymph # (Auto) Wolfe # (Auto) Eos # (Auto) Baso # (Auto) Nucleated RBC % (a uto) Nucleated RBCs # ESR PT INR Sodium Potassium Chloride Carbon Dioxide Anion Gap BUN Creatinine GFR Calculation Glucose Calculated Osmolal ity Lactic Acid 2.5 H Lactic Acid (Sepsi s) 2.2 Calcium Phosphorus Magnesium Total Bilirubin AST ALT Alkaline Phosphata se C-Reactive Protein 2.3 Total Protein Albumin Globulin Lipase Procalcitonin 0.05 TSH 0.84 02/17/20 02/17/20 02/17/20 19:22 14:52 14:52 WBC RBC Hgb Hct MCV MCH MCHC RDW Plt Count MPV Neut % (Auto) Lymph % (Auto) Wolfe % (Auto) Eos % (Auto) Baso % (Auto) Neut # (Auto) Lymph # (Auto) Wolfe # (Auto) Eos # (Auto) Baso # (Auto) Nucleated RBC % (a uto) Nucleated RBCs # ESR 21 H PT INR Sodium 137 Potassium 3.9 Chloride 103 Carbon Dioxide 26 Anion Gap 11.9 BUN 7 Creatinine 0.6 GFR Calculation 108.1 Glucose 211 H Calculated Osmolal ity 286 Lactic Acid 1.7 Lactic Acid (Sepsi s) Calcium 8.7 Phosphorus Magnesium Total Bilirubin 0.3 AST 20 ALT 12 Alkaline Phosphata se 98 C-Reactive Protein Total Protein 6.8 Albumin 3.3 L Globulin 3.5 Lipase 17 Procalcitonin TSH 02/17/20 02/17/20 14:52 14:52 WBC 8.6 RBC 3.97 L Hgb 9.9 L Hct 32.2 L MCV 81.1 MCH 24.9 L MCHC 30.7 RDW 19.0 H Plt Count 611 H MPV 10.0 Neut % (Auto) 83.6 Lymph % (Auto) 14.0 Wolfe % (Auto) 1.1 Eos % (Auto) 0.4 Baso % (Auto) 0.5 Neut # (Auto) 7.18 Lymph # (Auto) 1.2 Wolfe # (Auto) 0.1 L Eos # (Auto) 0.0 Baso # (Auto) 0.0 Nucleated RBC % (a uto) 0 Nucleated RBCs # 0.0 ESR PT 13.70 INR 1.02 Sodium Potassium Chloride Carbon Dioxide Anion Gap BUN Creatinine GFR Calculation Glucose Calculated Osmolal ity Lactic Acid Lactic Acid (Sepsi s) Calcium Phosphorus Magnesium Total Bilirubin AST ALT Alkaline Phosphata se C-Reactive Protein Total Protein Albumin Globulin Lipase Procalcitonin TSH Vitals: Last Vital Signs Temp 98.3 F 02/18/20 11:22 Pulse 82 02/18/20 11:22 Resp 16 02/18/20 11:44 BP 150/87 02/18/20 11:22 Pulse Ox 96 02/18/20 11:44 Discharge Plan Discharge Patient Disposition: Left Against Medical Advice Condition: Stable Prescriptions: No Action senna 8.8 mg/5 mL syrup 30 ml PO DAILY RF: 0 hydrocodone-acetaminophen 10-325 mg tablet 1 tab PO QID PRN (Reason: Pain) RF: 0 oxycodone 15 mg tablet 15 mg PO QID PRN (Reason: Pain) RF: 0 Symtuza [phone] mg tablet 1 tab PO QPM RF: 0 Discharge Diet: Cardiac Discharge Activity: Resume usual activity Activity Restrictions/Additional Instructions: -For your partial small bowel obstruction, slowly advance diet -If you have worsening abdominal pain please call 911 or come to the emergency room -Follow with Dr. Cooney in a few days Discharge Attestations Time Spent in Discharge Care*: less than 30 min Quality Metrics Clinical Quality Measures During this hospital stay, did patient experience: None Coding Level of Care Code Acute Diversity Manager for Chg Fwd Diagnoses Colon cancer C18.9 Current smoker F17.200 Hyperlipidemia E78.5 Hypertension I10 COPD (chronic obstructive pulmonary disease) J44.9 Squamous cell carcinoma of anus C21.0 Partial small bowel obstruction K56.600
[2020-02-18 16:35] VITALS: RESP 16; O2SAT 96
--- NOTE | 2020-02-19 05:27 | PC.SOCIAL ---
Late Entry for 02/18/2020. After Heart To Heart Rounds at 1000 this nurse went and spoke with patient regarding leaving AMA and need for biopsy so further goals of care can be discussed. Patient opened up a little and was tearful. She indicates she cant be kept in this building and needs to get outside. She was upset that she cant have ice chips even. She voiced concerns of stress at home as well. This nurse asked if she wanted to talk about it she indicates no. She asked when the biopsy will be done. This nurse asked pt care nurse who indicates 12 noon pt was updated. Discussed with patient that whether she leaves before biopsy or after it is very important she follow up with Dr Cooney early next week to discuss next steps or have biopsy done as outpatient. Pt verbalized understanding and indicates she will try and wait on biopsy. This nurse asked if she would like to speak with a counselor regarding health stressors and home stressors however, patient adamantly refuses. She will follow up with Dr Cooney. Updated Dr Escamilla regarding this discussion.
== END 2020-02-18 12:00 | disposition left against medical advice (07) | DRG 389 ==
LOC: ER 17:10 → MEDSURG 18:00
PROVIDERS: Emergency Medicine; Admitting Provider Family Medicine; Visit Provider Family Medicine
DX: K56.600 Partial intestinal obstruction, unspecified as to cause (principal); B20 Human immunodeficiency virus [HIV] disease; C18.5 Malignant neoplasm of splenic flexure; C21.0 Malignant neoplasm of anus, unspecified; R19.00 Intra-abdominal and pelvic swelling, mass and lump, unspecified site; I10 Essential (primary) hypertension; E78.5 Hyperlipidemia, unspecified; J44.9 Chronic obstructive pulmonary disease, unspecified; F17.210 Nicotine dependence, cigarettes, uncomplicated; Z90.49 Acquired absence of other specified parts of digestive tract; Z93.3 Colostomy status; Z92.21 Personal history of antineoplastic chemotherapy; Z92.3 Personal history of irradiation; K43.5 Parastomal hernia without obstruction or gangrene; E86.0 Dehydration; Z53.29 Procedure and treatment not carried out because of patient's decision for other reasons
CPT/HCPCS: 12345; 36415; 71260; 74177; 80053; 83605; 83690; 83735; 84100; 84145; 84443; 85025; 85610; 85651; 86140; 96361; 96365; 96367; 96372; 96375; 99214; 99283; J1100; J1170; J1200; J1644; J2060; J2405; J7030; Q9967

== ENCOUNTER 2020-03-23 05:41 | Outpatient (RCR) | payer MEDICARE, MEDICAID, SELFPAY ==
--- NOTE | 2020-03-09 | CT_ITS ---
Radiation Therapy Planning CT images; total exam DLP: 1471.37 mGy-cm MTDD
[2020-03-09] MEDS: sodium chloride 0.9% 1,000 ML 75 ML IV (10:20)
--- NOTE | 2020-03-10 08:46 | ONCRAD EPV_ITS ---
Radiation Oncology Established Patient Visit Patient: Morris Thayer [id number] : 1975 Age: 44 Sex: Female Dictated by: Dr. Beny Cortés Date of Service: 03/09/2020 Referring Physician(s) : Sammie Anderson Diagnosis: -) Metastatic colon cancer initially staged in September of 2013 as pT3 pN1b M0, positive K-barby mutation, positive MMR proficient. Metastasis was confirmed in 2018 status post resection of a perisplenic mass, and now the patient has biopsy-proven recurrence of colon cancer in the left upper quadrant of the abdomen. 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 Cristian Bourgeois -09/25/2013), complicated with an abscess in the operative bed. 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 -) Exploratory laparotomy and drainage of intra-abdominal abscess with partial gastric resection due to a gastric leak (12/19/2017). -) Re-exploration of the abdomen for gastric leak and (01/03/2018) -) 3 cycles of modified FOLFOX (12/09/2018 -01/06/2019) -) 3 cycles of FOLFIRI/Avastin (03/09/2019-04/13/2019) -) Multiple courses of antibiotic coverage due to intra-abdominal abscess Anal margin: -) Concurrent chemoradiation therapy to an aggregate dose of 55.8 Gy/31 fractions (10/06/2015-11/28/2015). Concurrent chemotherapy consisted of mitomycin-C and Xeloda. Chief Complaint: CT guided biopsy proven metastatic adenocarcinoma with mucinous features consistent with colorectal origin in a left upper quadrant intra-abdominal mass. BRAF pending HPI: The patient is a 44-year-old female with a past medical history significant for HIV, polysubstance abuse, and the above listed malignancies. The patient has an ostomy bag, constipation, and a recent CT-guided biopsy of a left upper quadrant abdominal soft tissue mass confirming metastatic colon cancer. Given the multiple surgeries that she has had in the past, coupled with multiple recurrent abscesses, there are no surgical options available to the patient. The patient's most recent CT of the abdomen pelvis (02/27/2020) revealed a 4.3 x 5 cm obstructing desmoplastic appearing mesenteric mass in the left upper quadrant involving the tail of the pancreas and stomach. The patient's most recent CT of the chest (02/17/2020) revealed a thin-walled cystic cavity in the left lower lobe measuring 2.1 x 1.9 cm. The solid component of this mass is decreased in comparison to the prior studies (10/2019 and 06/2019). The patient complains of abdominal pain, and symptoms related to small intestine obstruction caused by the intra-abdominal left upper quadrant mass. Current Medications: Amoxicillin-Pot Clavulanate, atropine Sulfate, avastin, back & Body Extra Strength, celeXA, citalopram Hydrobromide, colace, combivent Respimat, compazine, cVS Senna, dexamethasone, dexamethasone Sodium Phosphate, diflucan, exuefbghi-Wmaqwotgy-Xnykmnnm, dOK Plus, fluconazole, fluorouracil, gabapentin, hydrocodone-Acetaminophen, irinotecan HCl, keflex, lantus SoloStar, leucovorin Calcium, levoFLOXacin, lORazepam, lunesta, methylnaltrexone [place], metoprolol Tartrate, nystatin, ondansetron, ondansetron HCl, oxyCODONE HCl, oxyCODONE HCl ER, oxyCODONE HCl ER, oxyCODONE-Acetaminophen, oxyCODONE-Acetaminophen, palonosetron HCl, phenazopyridine HCl, prochlorperazine Maleate, protonix, reglan, relistor, senna-GRX, senokot S, sodium Chloride, tobrex, ventolin HFA, zofran, zofran ODT. Allergies: Morphine Sulfate, PROzac and Ziagen. Current Complaints / Review of Systems: Constitutional - Complains of a poor appetite. Complains of severe fatigue. Complains of change in weight in which she has lost about. Denies fever and night sweats. Eyes - Denies blurred vision and double vision. ENMT - Complains of altered taste. Denies dysphagia, ear pain, mouth dryness and stomatitis. Neck - Denies neck pain. Integumentary - Denies rash. Breasts - Denies pain. Cardiovascular - Denies arrhythmias, chest pain and edema. Respiratory - Denies cough, dyspnea and wheezing. Gastrointestinal - Has a colostomy and complains of abdominal pain that is intermittent located in the left upper quadrant. Complains of persistent constipation. Complains of nausea. Complains of intermittent vomiting if no relief in constipation. Denies diarrhea and melena / GI bleeding. Genitourinary (F) - Complains of nocturia and gets up about 3 to 5 times per night. Denies dysuria, frequency, hematuria, urgency, vaginal discharge / bleeding and vaginal spotting. Musculoskeletal - Complains of generalized muscle weakness. Denies bone pain and joint pain. Neurologic - Complains of intermittent dizziness that occurs upon sitting to standing. Complains of headaches occasionally. Denies abnormal gait. Endocrine - Complains of Type 2 diabetes. Denies thyroid disease. Hematologic/Lymphatic - Denies tender or enlarged lymph nodes.. Vital Signs: Performed on 03/09/2020 9:02 AM Height - 65.00 in, Weight - 122.6 lbs, BMI - 20.402 kg/m2, Temperature - 98.2 f, Pulse - 102, Respiration - 16, O2 Sat - 98 %, Pain - 0 and BP - 96/ 66 mm(hg). Physical Exam: General: Alert and oriented x 3. No acute distress. HEENT: Normocephalic, atraumatic. Extraocular Movements Intact: Pupils Equal, Round, Reactive to Light and Accommodation: Sclerae anicteric. Oral cavity is clear without lesions, masses or ulcers. NECK: Supple without supraclavicular or jugular lymphadenopathy. LUNGS: Clear to auscultation bilaterally without rales, rhonchi or wheeze. HEART: Regular rate and rhythm, normal S1 and S2 without murmur, gallop or rub. MUSCULOSKELETAL: No tenderness or percussion pain over the axial skeleton, scapulae or pelvis. ABDOMEN: THE PATIENT HAS AN OSTOMY BAG, and tenderness to gentle palpation of the left upper quadrant. Bowel sounds are normal EXTREMITIES: No peripheral edema is identified. NEUROLOGIC: Cranial nerves II ???XII are grossly intact. Normal sensation, strength 5/5 in all extremities, normal gait, no ataxia. Performance Status: 2 - Ambulatory/capable of all self-care, unable to perform any work activities. Up and about more than 50% of waking hours. (ECOG) Lab: None pending. Test performed on 11/09/2019 2:45 PM ESR (Sed Rate) - 19 mm/hr (high), Test performed on 01/13/2020 11:05 AM eGFR - 133.4 ml/min (high), Iron - 19 mcg/dl (low), % Iron Saturation - 7.0 % (low), Test performed on 02/08/2020 10:34 AM WBC - 11.4 10^9/l (high), HGB - 11.0 g/dl (low), MCV - 79.5 fl (low), MCH - 25.1 pg (low), MCHC - 31.6 g/dl (low), RDW - 19.9 % (high), Platelet Count - 683 10^9/l (high), Monocytes - 1.09 10^9/l (high) and Eosinophils - 0.54 10^9/l (high). Impression: The patient is a 44-year-old female with a prior history of HIV, polysubstance abuse, metastatic colon cancer and a history of anal cancer. In follow-up today, the patient has biopsy-proven colon metastasis in the left upper quadrant of the abdomen causing small bowel obstruction symptoms. The metastatic focus measures over 5 cm, it abuts and wraps around the left kidney, it invades the pancreatic tail, and it also involves the stomach. Given the patient's multiple surgeries, multiple postsurgical abscesses, and the degree of intra-abdominal scarring, there are no surgical options to palliate her symptoms. Plan is for high-dose palliation to a aggregate dose of 50.4 Zayas in 28 fractions. Given the close proximity to critical structures (especially the left kidney) an IMRT plan will be required. We will begin radiation therapy planning today. Signed by: Beny Cortés MD 03/10/2020 8:45:07 AM <<Signature on File>> CPT Code: CPT Code:
[2020-03-21] MEDS: sodium chloride 0.9% 1,000 ML 999 ML IV (11:30)
[2020-03-21] MEDS: alteplase 1 mg/mL SDV 2 mL 2 MG IV (11:55)
[2020-03-22 09:36] VITALS: RESP 18
[2020-03-22] MEDS: HYDROmorphone 1 mg/mL INJ 1 mL IV ×2 (09:36→11:16)
[2020-03-22 11:16] VITALS: RESP 18
--- NOTE | 2020-03-24 07:57 | ONCRAD TMN_ITS ---
Radiation Oncology Weekly Treatment Management Patient: Morris Thayer MR#: [id number] : 1975 Age: 44 Sex: Female Dictated by: Dr. Beny Cortés Date of Service: 03/22/2020 Referring Physician(s) : Sammie Anderson Diagnosis: -) Patient has HIV, polysubstance abuse, and metastatic colon cancer initially staged in September of 2013 as pT3 pN1b M0, positive K-barby mutation, positive MMR proficient. Metastasis was confirmed in 2018 status post resection of a perisplenic mass, and now the patient has biopsy-proven recurrence of colon cancer in the left upper quadrant of the abdomen. 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 Cristian Bourgeois -09/25/2013), complicated with an abscess in the operative bed. 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 -) Exploratory laparotomy and drainage of intra-abdominal abscess with partial gastric resection due to a gastric leak (12/19/2017). -) Re-exploration of the abdomen for gastric leak and (01/03/2018) -) 3 cycles of modified FOLFOX (12/09/2018 -01/06/2019) -) 3 cycles of FOLFIRI/Avastin (03/09/2019-04/13/2019) -) Multiple courses of antibiotic coverage due to intra-abdominal abscess Anal margin: -) Concurrent chemoradiation therapy to an aggregate dose of 55.8 Gy/31 fractions (10/06/2015-11/28/2015). Concurrent chemotherapy consisted of mitomycin-C and Xeloda. Current treatment: Palliative radiation therapy to a 5 cm biopsy-proven colon cancer metastasis in the left upper quadrant of the abdomen abutting. Radiotherapy to date: Course: Colon 2019, Treatment Site: Colon 28FX, Ref. ID: [id number], Energy: 15X/6X, Dose/Fx (cGy): 180, #Fx: , Dose Correction (cGy): 0, Total Dose (cGy): 360, Start Date: 03/21/2020, Elapsed Days: 1 Interim History: The patient reports persistent nausea/vomiting consistent with outlet obstruction due to her left upper quadrant metastatic focus measuring approximately 5 cm. Her weight is decreased by 5.6 pounds. Current Medications: Amoxicillin-Pot Clavulanate, atropine Sulfate, avastin, back & Body Extra Strength, celeXA, citalopram Hydrobromide, colace, combivent Respimat, compazine, cVS Senna, dexamethasone, dexamethasone Sodium Phosphate, diflucan, dilaudid, inlqlsgwu-Hqxzznpgp-[place], dOK Plus, fluconazole, fluorouracil, gabapentin, hydrocodone-Acetaminophen, hYDROmorphone HCl, irinotecan HCl, keflex, lantus SoloStar, leucovorin Calcium, levoFLOXacin, lORazepam, lunesta, methylnaltrexone [place], metoprolol Tartrate, nystatin, ondansetron, ondansetron HCl, ondansetron HCl, oxyCODONE HCl, oxyCODONE HCl ER, oxyCODONE HCl ER, oxyCODONE-Acetaminophen, oxyCODONE-Acetaminophen, palonosetron HCl, phenazopyridine HCl, prochlorperazine Maleate, protonix, reglan, relistor, senna-GRX, senokot S, sodium Chloride, tobrex, ventolin HFA, zofran, zofran ODT. Allergies: Morphine Sulfate, PROzac and Ziagen. Vital Signs: Performed on 03/22/2020 10:20 AM BMI - 19.47 kg/m2, Height - 65.00 in, Weight - 117.0 lbs, Temperature - 99.2 f, Pulse - 93, Respiration - 18, O2 Sat - 96 %, Pain - 10 and BP - 125/ 67 mm(hg). Physical Exam: Appears stable, no skin erythema or desquamation. Performance Status: 2 - Ambulatory/capable of all self-care, unable to perform any work activities. Up and about more than 50% of waking hours. (ECOG) Lab: None pending in Radiation Oncology. Imaging: Radiation therapy imaging related to accurate target localization (i.e. KV, MV and CBCT) was reviewed. Appropriate changes, if any, were made to ensure treatment accuracy. Plan: The patient is tolerating therapy reasonably well. Radiotherapy will continue as planned. CPT: 59868 Signed by: Dr. Beny Cortés 03/24/2020 7:56:16 AM
== END 2020-03-23 23:59 | disposition home or self-care (01) ==
LOC: ONCMED 05:41
PROVIDERS: Visit Provider Radiology Radiation Oncology
DX: Z51.0 Encounter for antineoplastic radiation therapy (principal); C18.4 Malignant neoplasm of transverse colon; C21.0 Malignant neoplasm of anus, unspecified; C79.89 Secondary malignant neoplasm of other specified sites
CPT/HCPCS: 36593; 77300; 77301; 77334; 77338; 77386; 96360; 96361; 96365; 96367; 96374; 96375; 96376; 99214; J1100; J1170; J2405; J2997; J7030

== ENCOUNTER 2020-03-28 11:38 | Outpatient (CLI) | payer MEDICARE, MEDICAID, SELFPAY ==
--- NOTE | 2020-03-28 12:12 | XR_ITS ---
WS: [id number] XR abdomen min 2V [id number] REASON FOR EXAM: COLON CANCER/ABD PAIN/?BOWEL OBSTRUCTION FINDINGS: Post cholecystectomy with surgical clips in the right upper quadrant. Small staple line in the left l ower quadrant. Small calcified shon in the left upper quadrant. No free air or retroperitoneal air. The bowel gas pattern is unremarkable with no findings of bowel o bstruction. Moderate amount of fecal material in the rectal vault. XR/XR abdomen min 2V [id number] IMPRESSION: Postoperative abdomen with no acute abnormality identified.
== END 2020-03-28 11:39 | disposition home or self-care (01) ==
LOC: RAD 11:39
PROVIDERS: Visit Provider Internal Medicine Medical Oncology
DX: C18.4 Malignant neoplasm of transverse colon (principal); R10.9 Unspecified abdominal pain
CPT/HCPCS: 74019

== ENCOUNTER 2020-04-04 05:19 | Outpatient (RCR) | payer MEDICARE, MEDICAID, SELFPAY ==
[2020-03-24] MEDS: HYDROmorphone 1 mg/mL INJ 1 mL IVP (11:11)
[2020-03-25] MEDS: sodium chloride 0.9% 250 ML IV ×2 (09:45→11:12)
[2020-03-25] MEDS: HYDROmorphone 1 mg/mL INJ 1 mL IVP (11:12)
[2020-03-28 09:45] VITALS: RESP 18
[2020-03-28] MEDS: sodium chloride 0.9% 250 ML IV (09:45)
[2020-03-28] MEDS: HYDROmorphone 1 mg/mL INJ 1 mL IVP (09:45)
[2020-03-28 11:15] VITALS: RESP 18
[2020-03-28] MEDS: HYDROmorphone 1 mg/mL INJ 1 mL IV (11:15)
[2020-03-30] MEDS: sodium chloride 0.9% 250 ML 999 ML IV (09:15)
[2020-03-30 09:25] VITALS: RESP 18
[2020-03-30] MEDS: HYDROmorphone 1 mg/mL INJ 1 mL IV (09:25)
--- NOTE | 2020-03-31 07:52 | ONCRAD TMN_ITS ---
Radiation Oncology Weekly Treatment Management Patient: Flaca Caceres MR#: [id number] : 1975 Age: 44 Sex: Female Dictated by: Dr. Beny Cortés Date of Service: 03/29/2020 Referring Physician(s) : Sammie Anderson Diagnosis: -) Patient has HIV, polysubstance abuse, and metastatic colon cancer initially staged in September of 2013 as pT3 pN1b M0, positive K-barby mutation, positive MMR proficient. Metastasis was confirmed in 2018 status post resection of a perisplenic mass, and now the patient has biopsy-proven recurrence of colon cancer in the left upper quadrant of the abdomen. 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 Cristian Bourgeois -09/25/2013), complicated with an abscess in the operative bed. 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 -) Exploratory laparotomy and drainage of intra-abdominal abscess with partial gastric resection due to a gastric leak (12/19/2017). -) Re-exploration of the abdomen for gastric leak and (01/03/2018) -) 3 cycles of modified FOLFOX (12/09/2018 -01/06/2019) -) 3 cycles of FOLFIRI/Avastin (03/09/2019-04/13/2019) -) Multiple courses of antibiotic coverage due to intra-abdominal abscess Anal margin: -) Concurrent chemoradiation therapy to an aggregate dose of 55.8 Gy/31 fractions (10/06/2015-11/28/2015). Concurrent chemotherapy consisted of mitomycin-C and Xeloda. Radiotherapy to date: Course: Colon 2019, Treatment Site: Colon 28FX, Ref. ID: [id number], Energy: 15X/6X, Dose/Fx (cGy): 180, #Fx: , Dose Correction (cGy): 0, Total Dose (cGy): 1,260, Start Date: 03/21/2020, Elapsed Days: 8 Reason for visit: The patient is being seen today as part of their regularly scheduled weekly on treatment visits to assess for acute toxicities from radiotherapy. Interim History: The patient reports a poor appetite yet her weight has improved by 2 pounds since her last on treatment visit. She reports significant fatigue, and she reports constipation. She was recently prescribed lactulose. The patient reports no skin irritation. She still has nausea/vomiting and back pain. Current Medications: Amoxicillin-Pot Clavulanate, atropine Sulfate, avastin, back & Body Extra Strength, celeXA, citalopram Hydrobromide, colace, combivent Respimat, compazine, cVS Senna, dexamethasone, dexamethasone Sodium Phosphate, diflucan, dilaudid, mhirmxjoz-Eujzaxqgf-Fgayyvjj, dOK Plus, fluconazole, fluorouracil, gabapentin, hydrocodone-Acetaminophen, hYDROmorphone HCl, irinotecan HCl, keflex, lactulose, lantus SoloStar, leucovorin Calcium, levoFLOXacin, lORazepam, lunesta, methylnaltrexone Karval, metoprolol Tartrate, nystatin, ondansetron, ondansetron HCl, ondansetron HCl, oxyCODONE HCl, oxyCODONE HCl ER, oxyCODONE HCl ER, oxyCODONE-Acetaminophen, oxyCODONE-Acetaminophen, palonosetron HCl, phenazopyridine HCl, prochlorperazine Maleate, protonix, reglan, relistor, senna-GRX, senokot S, sodium Chloride, tobrex, ventolin HFA, zofran, zofran ODT. Allergies: Morphine Sulfate, PROzac and Ziagen. Current Complaints/Review of Systems: Constitutional - Complains of a poor appetite. Complains of severe fatigue. Denies night sweats. Gastrointestinal - Complains of abdominal pain that is intermittent. Complains of persistent constipation. Complains of severe nausea. Complains of persistent vomiting. Denies heartburn / dyspepsia. Has colostomy. No irritation around the skin. Genitourinary (F) - Complains of nocturia gets up about 2 to 3 times per night. Denies dysuria, frequency, hematuria, urgency, vaginal discharge / bleeding and vaginal spotting. Vital Signs: Performed on 03/29/2020 10:26 AM BMI - 19.803 kg/m2, Height - 65.00 in, Weight - 119.0 lbs, Temperature - 99.0 f, Pulse - 89, Respiration - 16, O2 Sat - 96 %, Pain - 5, Fatigue - 10 and BP - 94/ 60 mm(hg)(/low). Physical Exam: Appears stable, no skin erythema or desquamation. Performance Status: 2 - Ambulatory/capable of all self-care, unable to perform any work activities. Up and about more than 50% of waking hours. (ECOG) Lab: None pending in Radiation Oncology. Test performed on 11/09/2019 2:45 PM ESR (Sed Rate) - 19 mm/hr (high), Test performed on 01/13/2020 11:05 AM eGFR - 133.4 ml/min (high), Osmolality - Calculated - 279 mosm/kg (low), Iron - 19 mcg/dl (low), % Iron Saturation - 7.0 % (low), Test performed on 02/08/2020 10:34 AM WBC - 11.4 10^9/l (high), HGB - 11.0 g/dl (low), MCV - 79.5 fl (low), MCH - 25.1 pg (low), MCHC - 31.6 g/dl (low), RDW - 19.9 % (high), Platelet Count - 683 10^9/l (high), Monocytes - 1.09 10^9/l (high) and Eosinophils - 0.54 10^9/l (high). Imaging: Radiation therapy imaging related to accurate target localization (i.e. KV, MV and CBCT) was reviewed. Appropriate changes, if any, were made to ensure treatment accuracy. Plan: The patient is tolerating therapy reasonably well. Radiotherapy will continue as planned. CPT: 32228 Signed by: Dr. Beny Cortés 03/31/2020 7:50:48 AM
[2020-04-01 09:50] VITALS: RESP 18
[2020-04-01] MEDS: HYDROmorphone 1 mg/mL INJ 1 mL IVP (09:50)
[2020-04-01] MEDS: sodium chloride 0.9% 1,000 ML 1000 ML IV (09:55)
[2020-04-04 09:55] VITALS: RESP 18
[2020-04-04] MEDS: sodium chloride 0.9% 250 ML IV (09:55)
[2020-04-04] MEDS: HYDROmorphone 1 mg/mL INJ 1 mL IVP (09:55)
[2020-04-04 11:08] LABS: Basophils # 0.1 10^3/uL (0.0-0.1); Basophils % 0.7 %; Eosinophils # 0.2 10^3/uL (0.0-0.8); Eosinophils % 2.7 %; Hematocrit 30.2 % (37.0-47.0); Hemoglobin 9.5 g/dL (11.5-15.3); Lymphocytes # 1.1 10^3/uL (0.8-4.8); Lymphocytes % 15.2 %; Mean Corpuscular HGB Conc 31.5 g/dL (30.0-36.0); Mean Corpuscular Hemoglobin 23.5 pg (28.0-34.0); Mean Corpuscular Volume 74.8 fL (81-99); Mean Platelet Volume 10.1 fL (7.4-10.4); Monocytes # 0.7 10^3/uL (0.2-0.9); Monocytes % 8.8 %; Neutrophils # 5.34 10^3/uL (1.8-7.7); Neutrophils % 72.3 %; Nucleated Red Blood Cells % 0 %; Platelet Count 639 10^3/cmm (130-400); Red Blood Count 4.04 10^6/uL (4.1-5.3); Red Cell Distribution Width 17.4 % (12.1-15.1); White Blood Count 7.4 10^3/uL (4.0-10.0)
[2020-04-04 12:27] LABS: Alanine Aminotransferase 33 U/L (0-33); Albumin Level 3.4 g/dL (3.5-5.2); Alkaline Phosphatase 105 IU/L (35-105); Anion Gap 12.9 (5-19); Aspartate Amino Transferase 21 U/L (0-32); Blood Urea Nitrogen 7 mg/dL (6-20); Calcium 8.8 mg/dL (8.5-10.5); Carbon Dioxide 39 mmol/L (22-29); Chloride 81 mmol/L (98-107); Glomerular Filtration Rate 133.4 mL/min (90-130); Glucose 100 mg/dL (65-115); Osmolality Calculated 270 mOsm/kg (285-295); Sodium 131 mmol/L (136-145); Total Bilirubin 0.3 mg/dL (0.15-1.2); Total Protein 6.4 g/dL (6.6-8.7)
[2020-04-04 13:12] LABS: Potassium 1.9 mmol/L (3.5-5.1)
== END 2020-04-04 13:00 | disposition home or self-care (01) ==
LOC: ONCMED 05:19
PROVIDERS: Internal Medicine Medical Oncology; Visit Provider Radiology Radiation Oncology
DX: Z51.0 Encounter for antineoplastic radiation therapy (principal); C21.0 Malignant neoplasm of anus, unspecified; C78.5 Secondary malignant neoplasm of large intestine and rectum; E78.5 Hyperlipidemia, unspecified; E87.6 Hypokalemia; F17.200 Nicotine dependence, unspecified, uncomplicated; I10 Essential (primary) hypertension; J44.9 Chronic obstructive pulmonary disease, unspecified; Z79.899 Other long term (current) drug therapy; Z92.21 Personal history of antineoplastic chemotherapy; C18.4 Malignant neoplasm of transverse colon; R10.9 Unspecified abdominal pain
CPT/HCPCS: 36591; 74019; 77336; 77386; 80053; 83735; 85025; 96361; 96365; 96367; 96368; 96372; 96374; 96375; J1100; J1170; J2405; J7030; J7050

== ENCOUNTER 2020-04-04 13:43 | Observation (INO) | payer MEDICARE, MEDICAID, SELFPAY ==
[2020-04-04] VITALS (10 sets, daily range): BP systolic 77–104; BP diastolic 61–68; PULSE 77–98; RESP 14–20; TEMP 36.6–36.7; O2SAT 91–99; BMI 19.1
[2020-04-04] MEDS: potassium chloride premix 100 ML 25 MEQ IV ×2 (15:27→21:46)
[2020-04-04] MEDS: HYDROmorphone 1 mg/mL INJ 1 mL 0.5 MG IVP ×3 (15:27→19:42)
[2020-04-04] MEDS: ondansetron 2 mg/ML SDV 2 mL 4 MG IVP ×2 (15:28→23:27)
[2020-04-04] MEDS: sodium chloride 0.9% 1,000 ML 999 ML IV (15:28)
[2020-04-04 16:18] LABS: Thyroid Stimulating Hormone 1.16 uIU/mL (0.27-4.20)
[2020-04-04] MEDS: metoclopramide 5 mg/mL SDV 2 mL IVP (17:21)
--- NOTE | 2020-04-04 17:32 | W.ED.RECABL ---
HPI - Recheck/Abnormal Lab/Rx General: Chief Complaint: Recheck/Abnormal Lab/Rx Stated Complaint: SENT BY [facility] POTASSIUM Time Seen by Provider: 04/04/20 14:51 History of Present Illness: HPI narrative: This patient is a 44-year-old female with a history of anal cancer. She presents today having been sent over from the [facility] center due to a potassium of 1.9. Magnesium level was okay. She has been getting radiation treatment but not chemotherapy. She has had chemotherapy in the past but it is been several years. She is also HIV positive and is on medications for that. She has Compazine and senna at home as well as lactulose. She takes hydromorphone at home. She has had problems with feeling constipated recently and has a colostomy. She said it is working normally she just feels like she is getting more full in her abdomen. She feels generally weak. She has had some vomiting. She is been trying to eat and drink but has not been able to keep much down. Returns today for: called because of abnormal lab/test Review of Systems General: Reports: 10 or more systems reviewed and unremarkable except in HPI and below Const: Reports: malaise; Denies: fever(s), chills or fatigue Eyes: Denies: change in vision ENMT: Denies: odynophagia Card: Denies: chest pain or swelling of feet/ankles Resp: Denies: dyspnea, productive cough or non-productive cough GI: Denies: abdominal pain, nausea or vomiting : Denies: flank pain or difficulty voiding Musc: Denies: neck pain or back pain Skin/Breast: Denies: rash Neuro: Reports: weakness in extremities; Denies: headache(s) or numbness in extremities Dexter/Lymph: Denies: easy bruising or easy bleeding PFSH ED PFSH: Medical History (Updated 04/04/20 @ 19:32 by Sandra Deleon MD) HIV (human immunodeficiency virus infection) Polysubstance abuse Pulmonary nocardiosis Surgical History History of colonoscopy History of hemicolectomy Family History Other Cancer Social History Smoking and tobacco status: current every day smoker Alcohol intake: never Physical Exam Const: COMMON NORMALS: no acute distress, patient oriented x3, no limitations and alert GENERAL APPEARANCE: cooperative and comfortable NUTRITIONAL APPEARANCE: underweight HENMT: HEAD & SCALP: normal to inspection FACE & SINUS: normal facial exam Eye: GENERAL EYE: appearance normal, both eyes and all related structures Neck/C-Spine: COMMON NORMALS: supple, no meningeal signs and no JVD Chest: COMMONS NORMALS: normal inspection of the chest Resp: COMMON NORMALS: normal respiratory effort, No use of accessory muscles and clear to auscultation bilaterally AUSCULTATION: clear to auscultation bilaterally Cardio: COMMON NORMALS: no JVD, regular rate, regular rhythm and No murmurs present (Cardio) RATE: regular rate RHYTHM: regular rhythm GI: COMMON NORMALS: Normal to inspection, nondistended, normoactive bowel sounds present, Soft to palpation and non-tender INSPECTION: Yes normal to inspection AUSCULTATION: Yes normoactive bowel sounds PALPATION: Yes Soft to palpation Back/Pelvis: COMMON NORMALS: thoracic and lumbar spine normal to inspection Extremity: COMMON NORMALS: normal to inspection Neuro: COMMON NORMALS: patient oriented x3, moves all extremities, no focal motor deficits and no sensory deficits noted SENSORIUM/ORIENTATION: Yes alert MENINGEAL SIGNS: Yes no meningeal signs Psych: COMMON NORMALS: mental status grossly normal, cooperative and normal affect Skin: COMMON NORMALS: no rashes or lesions noted and turgor normal GENERAL SKIN EXAM: no rashes or lesions noted and turgor normal Course ED course: Patient with vomiting, pain, concerns about constipation. She was sent over for a low potassium. She will be admitted to the hospital for IV potassium replacement. Vital Signs: Vital signs: Vital Signs Temperature 98.1 F 04/06/20 12:32 Pulse Rate 67 04/06/20 12:32 Respiratory Rate 18 04/06/20 12:32 Blood Pressure 119/71 04/06/20 12:32 Pulse Oximetry 97 04/06/20 12:32 MDM - Recheck/Abnormal Lab/Rx Lab Data: Labs: Lab Results 04/04/20 Range/Units 15:26 TSH 1.16 (0.27-4.20) uIU/ mL Discharge Plan Discharge Patient Disposition: Admitted As Inpatient Admit Provider: Sandra Deleon Condition: Stable Referrals: Quinn Cooney MD [Hospitalist] - 04/11/20 1:00 pm (1pm on april 11, 2020) Discharge Diet: Usual diet Discharge Activity: Resume usual activity Patient Instructions: Hypokalemia, Colorectal Cancer (GEN) Discharge Date/Time: 04/04/20 19:51 Coding Level of Care Code ED [employer] for [facility] Fwd Exam Comprehensive
--- NOTE | 2020-04-04 19:11 | PM.HP ---
Providers/Chief Complaint Admitting Physician: Sandra Deleon MD Chief Complaint: SENT BY [facility] POTASSIUM History of Present Illness Flaca Caceres is a 44 year old female with a past medical history of recurrent/metastatic colon cancer, high-grade invasive squamous cell carcinoma of the anal skin margin hypertension, pulmonary nocardiosis, hyperlipidemia, COPD HIV who presents from cancer center after being noted to have abnormal labs with K of 1.9. She has been undergoing radiation treatment. Denies any diarrhea or change in ostomy output .Has some vomiting, but able to tolerate po intake. Review of Systems General: Reports: 10 or more systems reviewed and unremarkable except in HPI and below Const: Denies: fever(s), chills or body aches Eyes: Denies: change in vision, blurry vision or photophobia ENMT: Reports: hoarseness; Denies: throat pain, enlarged tonsils, odynophagia or nasal congestion Card: Denies: chest pain, palpitations, irregular heart rhythm, edema, swelling of feet/ankles, lightheadedness, pre-syncope, dyspnea on exertion or orthopnea Resp: Denies: dyspnea, productive cough, non-productive cough, wheezing, stridor, pain on inspiration, change in phlegm color, hemoptysis or chest congestion GI: Denies: abdominal pain, nausea, vomiting, hematemesis, coffee ground emesis, dysphagia, heartburn, diarrhea, constipation, GI cramping, change in stool character, hematochezia or melena : Denies: flank pain, difficulty voiding, dysuria, urinary frequency, urinary urgency, urinary hesitancy or hematuria Musc: Denies: neck pain, back pain, extremity pain, joint swelling, joint warmth or deformity Neuro: Denies: headache(s), numbness in extremities, weakness in extremities, sensory changes, difficulty walking, frequent falls, dizziness, vertigo, behavioral changes, Slurred speech present or seizure-like activity Psych: Denies: anxiety, depression, suicidal ideation or homicidal ideation Endo: Denies: polyuria, polydipsia, tired all the time, cold intolerance or hot flashes Dexter/Lymph: Denies: easy bruising or easy bleeding Medications/Allergies Home Medications Medication Instructions Recorded Confirmed Last Taken Type efmtdhtwl-divt-blmqd-tenof ala 1 tab PO QPM 02/17/20 04/04/20 04/03/20 History [Symtuza] sennosides [senna] 30 ml PO BID 02/17/20 04/04/20 04/03/20 History hydromorphone 4 mg PO Q4H PRN 04/04/20 04/04/20 04/04/20 History lactulose 20 g PO Q2H PRN 04/04/20 04/04/20 Unknown History ondansetron 4 mg PO Q8H PRN 04/04/20 04/04/20 04/04/20 History prochlorperazine maleate 10 mg PO Q4H PRN 04/04/20 04/04/20 04/04/20 History [Compazine] Allergies Allergy/AdvReac Type Severity Reaction Status Date / Time morphine Allergy ALGY-Anaphy Verified 04/04/20 13:58 laxis PFSH Acute PFSH: Medical History (Updated 04/04/20 @ 19:32 by Sandra Deleon MD) HIV (human immunodeficiency virus infection) Polysubstance abuse Pulmonary nocardiosis Surgical History History of colonoscopy History of hemicolectomy Family History Other Cancer Social History Smoking and tobacco status: current every day smoker Alcohol intake: never Vitals/I&O/Wt Last Vital Signs Temp 98.0 F 04/04/20 13:54 Pulse 91 04/04/20 18:37 Resp 20 H 04/04/20 18:37 BP 97/61 04/04/20 18:37 Pulse Ox 94 04/04/20 18:37 Weight last 48 hrs Weight 52.163 kg Physical Exam Const: COMMON NORMALS: no acute distress, average body habitus, patient oriented x3, no limitations, healthy appearing, alert and well nourished HENMT: COMMON NORMALS: normocephalic and atraumatic HEAD & SCALP: normocephalic and atraumatic Eye: COMMON NORMALS: Equal, round and reactive pupils present, EOMs intact bilaterally, conjunctivae normal and no scleral icterus CONJUNCTIVA: Yes conjunctivae normal PUPIL: Yes Equal, round and reactive pupils present Neck/C-Spine: COMMON NORMALS: no JVD Resp: COMMON NORMALS: normal respiratory effort, No retractions, No use of accessory muscles, clear to auscultation bilaterally and percussion normal AUSCULTATION: clear to auscultation bilaterally PERCUSSION: percussion normal Cardio: COMMON NORMALS: no JVD, regular rate, regular rhythm, S1 normal heart sound present, S2 normal heart sound present, No gallops present (Cardio), No clicks present (Cardio), No murmurs present (Cardio), No rub (Cardio) and Peripheral pulses 2+ throughout RATE: regular rate RHYTHM: regular rhythm HEART SOUNDS: S1 normal heart sound present and S2 normal heart sound present PERIPHERAL PULSES: Peripheral pulses 2+ throughout GI: COMMON NORMALS: Normal to inspection, nondistended, normoactive bowel sounds present, Soft to palpation, non-tender, No hepatosplenomegaly present, no masses and no bruits PALPATION: Yes Soft to palpation and Yes No hepatosplenomegaly present Extremity: COMMON NORMALS: normal to inspection, full ROM, capillary refill normal, no joint enlargement, no clubbing, cyanosis or edema, no calf tenderness and no pedal edema Neuro: COMMON NORMALS: patient oriented x3, CN's II-XII intact bilaterally, moves all extremities, no focal motor deficits, no sensory deficits noted, deep tendon reflexes 2+ bilaterally and gait normal SENSORIUM/ORIENTATION: Yes alert Psych: COMMON NORMALS: mental status grossly normal, Normal thought process present, cooperative, normal affect, speech normal, activity/motor behavior normal, denies hallucinations, denies homicidal ideation and denies suicidal ideation SPEECH: Yes normal speech THOUGHT PROCESS: Normal thought process present Skin: COMMON NORMALS: no rashes or lesions noted, no wounds, turgor normal, no jaundice, no petechiae and no mottling GENERAL SKIN EXAM: no rashes or lesions noted and turgor normal A&P Assessment and plan (1) Squamous cell carcinoma of anus: Status: Acute (2) Colon cancer: Status: Acute Qualifiers: Colon location: unspecified part of colon Qualified Code(s): C18.9 - Malignant neoplasm of colon, unspecified (3) COPD (chronic obstructive pulmonary disease): Status: Acute Qualifiers: COPD type: unspecified COPD Qualified Code(s): J44.9 - Chronic obstructive pulmonary disease, unspecified (4) Hypokalemia due to excessive gastrointestinal loss of potassium: Status: Acute Additional A&P Information patient is PMH as above,, currenlty under observatin for critical hypokalemia No acute changes on EKG Likely 2/2 excess GI losses from nausea, vomiting. Denies any changes in colostomy output Abdomen overall benign Recheck K after having received suppemetation with K rider in the ER Appears dehydarted overall, will order NS with added KCL Full code DVt ppx: lovenox Attestations Medical Necessity Statement*: observation admission for critical potassium, supplement IV, monitor for improvement Coding Level of Care Code Acute [employer] for [facility] Fwd Diagnoses Squamous cell carcinoma of anus C21.0 Colon cancer C18.9 Colon location: unspecified part of colon COPD (chronic obstructive pulmonary disease) J44.9 COPD type: unspecified COPD Hypokalemia due to excessive gastrointestinal loss of potassium E87.6
--- NOTE | 2020-04-04 19:16 | PC.NURSE ---
pt report called to [facility] MAYORGA in SBAR format.
[2020-04-04 20:32] LABS: Alanine Aminotransferase 38 U/L (0-33); Albumin Level 3.8 g/dL (3.5-5.2); Alkaline Phosphatase 115 IU/L (35-105); Anion Gap 13.2 (5-19); Aspartate Amino Transferase 22 U/L (0-32); Blood Urea Nitrogen 10 mg/dL (6-20); Calcium 9.2 mg/dL (8.5-10.5); Chloride 79 mmol/L (98-107); Globulin 3.4 g/dL (1.3-4.6); Glomerular Filtration Rate 90.5 mL/min (90-130); Glucose 125 mg/dL (65-115); Osmolality Calculated 273 mOsm/kg (285-295); Sodium 131 mmol/L (136-145); Total Bilirubin 0.3 mg/dL (0.15-1.2); Total Protein 7.2 g/dL (6.6-8.7)
[2020-04-04 20:37] LABS: Carbon Dioxide 41 mmol/L (22-29); Potassium 2.2 mmol/L (3.5-5.1)
[2020-04-04] MEDS: enoxaparin 30 mg/0.3 mL Syringe SUBCUT (21:46)
[2020-04-04] MEDS: sodium chlor 0.9% + KCl 20 mEq 20 MEQ/1,000 ML BAG 100 MEQ IV (21:47)
[2020-04-05] VITALS (10 sets, daily range): BP systolic 97–113; BP diastolic 57–66; PULSE 70–79; RESP 16–18; TEMP 36.8–37.2; O2SAT 93–96
[2020-04-05 05:25] LABS: Basophils % 0.3 %; Eosinophils # 0.1 10^3/uL (0.0-0.8); Eosinophils % 0.8 %; Hematocrit 30.1 % (37.0-47.0); Hemoglobin 9.1 g/dL (11.5-15.3); Lymphocytes # 1.4 10^3/uL (0.8-4.8); Lymphocytes % 22.7 %; Mean Corpuscular HGB Conc 30.2 g/dL (30.0-36.0); Mean Corpuscular Volume 76.2 fL (81-99); Mean Platelet Volume 10.3 fL (7.4-10.4); Monocytes # 0.7 10^3/uL (0.2-0.9); Monocytes % 11.4 %; Neutrophils % 64.3 %; Nucleated Red Blood Cells % 0 %; Platelet Count 585 10^3/cmm (130-400); Red Blood Count 3.95 10^6/uL (4.1-5.3); Red Cell Distribution Width 17.4 % (12.1-15.1); White Blood Count 6.2 10^3/uL (4.0-10.0)
[2020-04-05 05:40] LABS: Alanine Aminotransferase 31 U/L (0-33); Albumin Level 3.3 g/dL (3.5-5.2); Alkaline Phosphatase 94 IU/L (35-105); Anion Gap 13.6 (5-19); Aspartate Amino Transferase 19 U/L (0-32); Blood Urea Nitrogen 9 mg/dL (6-20); Calcium 8.8 mg/dL (8.5-10.5); Carbon Dioxide 36 mmol/L (22-29); Chloride 82 mmol/L (98-107); Creatinine Clr Calc Pharmacy 102.9286; Globulin 2.9 g/dL (1.3-4.6); Glomerular Filtration Rate 108.1 mL/min (90-130); Glucose 113 mg/dL (65-115); Osmolality Calculated 267 mOsm/kg (285-295); Sodium 129 mmol/L (136-145); Total Bilirubin 0.3 mg/dL (0.15-1.2); Total Protein 6.2 g/dL (6.6-8.7)
[2020-04-05 06:54] LABS: Potassium 2.6 mmol/L (3.5-5.1)
[2020-04-05] MEDS: sodium chlor 0.9% + KCl 20 mEq 20 MEQ/1,000 ML BAG 100 MEQ IV ×2 (09:21→21:01)
[2020-04-05] MEDS: lidocaine 1% 5 ML in potassium chloride premix 100 ML 25 ML IV ×2 (10:02→16:17)
[2020-04-05] MEDS: potassium chloride ER 10 mEq Tablet 60 MEQ PO (10:03)
[2020-04-05] MEDS: lactulose oral liq 20 gm/30 mL UDC PO (10:19)
[2020-04-05] MEDS: ondansetron 2 mg/ML SDV 2 mL 4 MG IVP (10:20)
--- NOTE | 2020-04-05 13:41 | XRR_ITS ---
PROCEDURE INFORMATION: Exam: XR Abdomen, 1 View Exam date and time: 04/05/2020 2:52 PM Age: 44 years old Clinical indication: Abdominal pain; Generalized; Additional info: Abd pain TECHNIQUE: Imaging protocol: XR of the abdomen. Views: Frontal supine view of the abdomen. 1 View. COMPARISON: CR XR abdomen min 2V [id number] 03/28/2020 12:15 PM FINDINGS: Gastrointestinal tract: There is heterogenous material in the projection of the antrum of the stomach. No bowel dilation. There is evidence of cholecystectomy. Bones/joints: Unremarkable. Other findings: There is hepatomegaly present. The a year until it does start in the XR/XR abdomen 1V* 14899 IMPRESSION: 1. No acute findings. 2. Status post cholecystectomy
[2020-04-05 14:05] LABS: Potassium 2.7 mmol/L (3.5-5.1)
[2020-04-05] MEDS: HYDROmorphone 1 mg/mL INJ 1 mL 2 MG IVP (15:12)
[2020-04-05] MEDS: polyethylene glycol 3350 Pkt 17 gm PO (16:17)
[2020-04-05] MEDS: sennosides-docusate Tablet 1 TAB PO (16:17)
[2020-04-05] MEDS: prochlorperazine 10 mg Tablet PO (16:26)
--- NOTE | 2020-04-05 17:14 | PM.PN ---
Subjective Subjective: Interval history: continues to be hypokalemic with 2.6, given po K supplementation today which was soon followed by 2-3 episodes of vomiting. Abdomen mildly distended today, states stoma not passing flatus today. Abd flat plate ordered to evaluate for SBO . Planned to undergo radiation this afternoon Medications: Reviewed: Yes Vitals/I&O/Wt Last Vital Signs Temp 98.3 F 04/05/20 11:37 Pulse 78 04/05/20 11:37 Resp 18 04/05/20 15:12 BP 104/66 04/05/20 11:37 Pulse Ox 96 04/05/20 11:37 04/05/20 04/05/20 04/05/20 06:59 14:59 22:59 Intake Total 120 / 700 1360 / 1360 Output Total 5 / 5 400 / 400 Balance 115 / 695 960 / 960 Weight last 48 hrs Weight 52.163 kg Physical Exam Narrative: EXAM NARRATIVE: GEN: Awake, alert and oriented, no acute distress , overall chronically ill appearing CVS: S1S2 N RS: CTA B/L Abd: Soft, nt/nd , bs+ , stoma in place ELECTRICAL TEST TECHNICIAN: no focal neuro deficits Data : 04/05/20 04:40 04/05/20 13:22 A&P Assessment and plan (1) Squamous cell carcinoma of anus: Status: Acute (2) Colon cancer: Status: Acute Qualifiers: Colon location: unspecified part of colon Qualified Code(s): C18.9 - Malignant neoplasm of colon, unspecified (3) COPD (chronic obstructive pulmonary disease): Status: Acute Qualifiers: COPD type: unspecified COPD Qualified Code(s): J44.9 - Chronic obstructive pulmonary disease, unspecified (4) Hypokalemia due to excessive gastrointestinal loss of potassium: Status: Acute Additional A&P Information Hypokalemis: persisting in spite of supplmentation. not tolerating po supplementation. with iv, corrected to 2.7, will need additional correction after RT today No acute changes on EKG Likely 2/2 excess GI losses from nausea, vomiting. check abdomeinal X ray today given mildly increased distension and c/o inability to pass flatus- check X ray abdomen to evaluate for SBO. Full code DVt ppx: lovenox Attestations Medical Necessity Statement*: persisting hypokalemia, unable to tolerate po supplementation, needs iv repletion, RT today Coding Level of Care Code Acute [employer] for [facility] Fwd Diagnoses Squamous cell carcinoma of anus C21.0 Colon cancer C18.9 Colon location: unspecified part of colon COPD (chronic obstructive pulmonary disease) J44.9 COPD type: unspecified COPD Hypokalemia due to excessive gastrointestinal loss of potassium E87.6
[2020-04-05] MEDS: enoxaparin 30 mg/0.3 mL Syringe SUBCUT (21:00)
[2020-04-06 04:00] VITALS: BP 119/76; PULSE 77; RESP 18; TEMP 37.2; O2SAT 94
[2020-04-06 04:51] VITALS: RESP 16
[2020-04-06 05:02] LABS: Alanine Aminotransferase 47 U/L (0-33); Albumin Level 2.8 g/dL (3.5-5.2); Alkaline Phosphatase 134 IU/L (35-105); Anion Gap 10.4 (5-19); Aspartate Amino Transferase 36 U/L (0-32); Blood Urea Nitrogen 7 mg/dL (6-20); Calcium 8.3 mg/dL (8.5-10.5); Carbon Dioxide 31 mmol/L (22-29); Chloride 95 mmol/L (98-107); Globulin 2.6 g/dL (1.3-4.6); Glomerular Filtration Rate 133.4 mL/min (90-130); Glucose 79 mg/dL (65-115); Osmolality Calculated 273 mOsm/kg (285-295); Potassium 3.4 mmol/L (3.5-5.1); Sodium 133 mmol/L (136-145); Total Bilirubin 0.2 mg/dL (0.15-1.2); Total Protein 5.4 g/dL (6.6-8.7)
[2020-04-06 07:31] VITALS: BP 134/80; PULSE 78; RESP 18; TEMP 36.7; O2SAT 99
[2020-04-06] MEDS: sodium chlor 0.9% + KCl 20 mEq 20 MEQ/1,000 ML BAG 100 MEQ IV (08:43)
[2020-04-06] MEDS: polyethylene glycol 3350 Pkt 17 gm PO (09:18)
[2020-04-06] MEDS: sennosides-docusate Tablet 1 TAB PO (09:18)
[2020-04-06 10:57] VITALS: RESP 18
[2020-04-06] MEDS: ondansetron 2 mg/ML SDV 2 mL 4 MG IVP (11:06)
[2020-04-06 11:31] VITALS: BP 119/71; PULSE 67; RESP 18; TEMP 36.7; O2SAT 97
--- NOTE | 2020-04-06 12:24 | P.DS_ITS ---
Discharge Providers Date of Admission: 04/04/20 18:09 Date of Discharge: April 06, 2020 Attending Provider at Admission: Sandra Deleon MD Attending Provider at Discharge: Sandra Deleon MD Diagnoses at Discharge Discharge Diagnosis (1) Squamous cell carcinoma of anus: Status: Acute (2) Colon cancer: Status: Acute Qualifiers: Colon location: unspecified part of colon Qualified Code(s): C18.9 - Malignant neoplasm of colon, unspecified (3) COPD (chronic obstructive pulmonary disease): Status: Acute Qualifiers: COPD type: unspecified COPD Qualified Code(s): J44.9 - Chronic obstructive pulmonary disease, unspecified (4) Hypokalemia due to excessive gastrointestinal loss of potassium: Status: Acute Reason for Visit Reason for Visit: SENT BY [facility] Hospital Course Discharge Summary: 44 year old female with a past medical history of recurrent/metastatic colon cancer, 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 She did not tolerate p.o. intake of the potassium and needed to be repleted intravenously. On the day of discharge her potassium was significantly improved to 3.4. Yesterday she had also complained of inability to pass any flatus or feces into her stoma. She did receive MiraLAX yesterday with good stool output over the night. Abdominal x-ray was taken which did not reveal any signs of SBO. She is being discharged today in stable condition with resolved hypokalemia. 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 Discharge Data Data Completed and Pending: Completed Studies During Hospitalization Category Date Time Status XR abdomen 1V* 74 018 Stat Exams 04/05/20 13:41 Completed Labs from last 24 hours 04/06/20 04/05/20 03:35 13:22 Sodium 133 L Potassium 3.4 L 2.7 L* Chloride 95 L Carbon Dioxide 31 H Anion Gap 10.4 BUN 7 Creatinine 0.5 GFR Calculation 133.4 H Glucose 79 Calculated Osmolal ity 273 L Calcium 8.3 L Total Bilirubin 0.2 AST 36 H ALT 47 H Alkaline Phosphata se 134 H Total Protein 5.4 L Albumin 2.8 L Globulin 2.6 Vitals: Last Vital Signs Temp 98.1 F 04/06/20 11:31 Pulse 67 04/06/20 11:31 Resp 18 04/06/20 11:31 BP 119/71 04/06/20 11:31 Pulse Ox 97 04/06/20 11:31 Discharge Plan Discharge Patient Disposition: Home Condition: Stable Prescriptions: Continued Compazine 10 mg Tablet 10 mg PO Q4H PRN (Reason: Nausea) RF: 0 hydromorphone 4 mg Tablet 4 mg PO Q4H PRN (Reason: Pain) RF: 0 ondansetron 4 mg Tablet,Disintegrating 4 mg PO Q8H PRN (Reason: Nausea) RF: 0 lactulose 10 gram/15 mL Solution 20 g PO Q2H PRN (Reason: Constipation) RF: 0 sennosides [senna] 8.8 mg/5 mL syrup 30 ml PO BID RF: 0 Symtuza [phone] mg tablet 1 tab PO QPM RF: 0 Discharge Orders: Discharge Order (Routine); Ordered 04/06/20 Ordered By: Sandra Deleon Referrals: Quinn Cooney MD [Hospitalist] - 04/11/20 1:00 pm (1pm on april 11, 2020) Discharge Diet: Usual diet Discharge Activity: Resume usual activity Patient Instructions: Hypokalemia, Colorectal Cancer (GEN) Discharge Date/Time: 04/06/20 12:45 Discharge Attestations Time Spent in Discharge Care*: greater than 30 min Quality Metrics Clinical Quality Measures During this hospital stay, did patient experience: None Coding Level of Care Code [facility] Diagnoses Squamous cell carcinoma of anus C21.0 Colon cancer C18.9 Colon location: unspecified part of colon COPD (chronic obstructive pulmonary disease) J44.9 COPD type: unspecified COPD Hypokalemia due to excessive gastrointestinal loss of potassium E87.6
[2020-04-06 12:32] VITALS: BP 119/71; PULSE 67; RESP 18; TEMP 36.7; O2SAT 97
== END 2020-04-06 12:45 | disposition home or self-care (01) ==
LOC: ER 18:32 → MEDSURG 19:01
PROVIDERS: Emergency Medicine; Admitting Provider Student in an Organized Health Care Education/Training Program; Visit Provider Student in an Organized Health Care Education/Training Program
DX: C21.0 Malignant neoplasm of anus, unspecified (principal); C18.9 Malignant neoplasm of colon, unspecified; J44.9 Chronic obstructive pulmonary disease, unspecified; E87.6 Hypokalemia; I10 Essential (primary) hypertension; E78.5 Hyperlipidemia, unspecified; B20 Human immunodeficiency virus [HIV] disease; F17.210 Nicotine dependence, cigarettes, uncomplicated; Z51.0 Encounter for antineoplastic radiation therapy; C78.5 Secondary malignant neoplasm of large intestine and rectum; F17.200 Nicotine dependence, unspecified, uncomplicated; Z79.899 Other long term (current) drug therapy; Z92.21 Personal history of antineoplastic chemotherapy; R10.9 Unspecified abdominal pain
CPT/HCPCS: 12345; 36415; 36591; 74018; 77386; 80053; 83735; 84132; 84443; 85025; 96361; 96365; 96366; 96367; 96372; 96375; 96376; 99283; 99285; G0378; J1100; J1170; J1650; J2405; J2765; J3480; J7030; J7050; Q0164

== ENCOUNTER 2020-04-22 05:46 | Outpatient (RCR) | payer MEDICARE, MEDICAID, SELFPAY ==
--- NOTE | 2020-04-06 15:05 | PC.RESP ---
Smoking Cessation and Pulmonary Rehab information sent to patient.
[2020-04-07 10:00] VITALS: RESP 18; O2SAT 96
[2020-04-07] MEDS: HYDROmorphone 1 mg/mL INJ 1 mL IV (10:00)
[2020-04-07] MEDS: alteplase 1 mg/mL SDV 2 mL 2 MG INTRACATH (10:20)
--- NOTE | 2020-04-07 13:19 | ONCRAD TMN_ITS ---
Radiation Oncology Weekly Treatment Management Patient: Morris Thayer MR#: [id number] : 1975 Age: 44 Sex: Female Dictated by: Dr. Beny Cortés Date of Service: 04/06/2020 Referring Physician(s) : Sammie Anderson Diagnosis: C79.89 - Secondary malignant neoplasm of other specified sites, Diagnosed 05/27/2018 (Active) C21.0 - Malignant neoplasm of anus, unspecified, Diagnosed 10/28/2015 (Active) Stage X, T4, N0, MX C18.4 - Malignant neoplasm of transverse colon, Diagnosed 10/07/2013 (Active) Stage IIIB, T3, N1b, M0 Colon cancer and anal margin skin cancer. Radiotherapy to date: Course: 2019 Treatment Site: Colon 28FX, Ref. ID: [id number], Energy: 15X/6X, Dose/Fx (cGy): 180, #Fx: Dose Correction (cGy): 0 Total Dose (cGy): 2,160 Start Date: 03/21/2020 End Date: 04/06/2020 Elapsed Days: 16 Reason for visit: The patient is being seen today as part of their regularly scheduled weekly on treatment visits to assess for acute toxicities from radiotherapy. Interim History: The patient reports no acute side effects from radiation treatment. Current Medications: Amoxicillin-Pot Clavulanate, atropine Sulfate, avastin, back & Body Extra Strength, celeXA, citalopram Hydrobromide, colace, combivent Respimat, compazine, cVS Senna, dexamethasone, dexamethasone Sodium Phosphate, diflucan, svdnorlwk-Ybijfzrcy-[place], dOK Plus, fluconazole, fluorouracil, gabapentin, hydrocodone-Acetaminophen, hYDROmorphone HCl, irinotecan HCl, keflex, lactulose, lantus SoloStar, leucovorin Calcium, levoFLOXacin, lORazepam, lORazepam, lunesta, methylnaltrexone [place], metoprolol Tartrate, nystatin, ondansetron, ondansetron HCl, oxyCODONE HCl, oxyCODONE HCl ER, oxyCODONE HCl ER, oxyCODONE-Acetaminophen, oxyCODONE-Acetaminophen, palonosetron HCl, phenazopyridine HCl, prochlorperazine Maleate, protonix, reglan, relistor, senna-GRX, senokot S, tobrex, ventolin HFA, zofran, zofran ODT. Allergies: Morphine Sulfate, PROzac and Ziagen. Vital Signs: Performed on 04/06/2020 2:55 PM BMI - 19.57 kg/m2, Height - 65.00 in, Weight - 117.6 lbs, Temperature - 98.5 f, Pulse - 81, Respiration - 16, O2 Sat - 100 %, Pain - 10 and BP - 93/ 57 mm(hg)(/low). Physical Exam: Appears stable, no skin erythema or desquamation. Performance Status: 2 - Ambulatory/capable of all self-care, unable to perform any work activities. Up and about more than 50% of waking hours. (ECOG) Lab: None pending in Radiation Oncology. Test performed on 11/09/2019 2:45 PM ESR (Sed Rate) - 19 mm/hr (high), Test performed on 01/13/2020 11:05 AM eGFR - 133.4 ml/min (high), Osmolality - Calculated - 279 mosm/kg (low), Iron - 19 mcg/dl (low), % Iron Saturation - 7.0 % (low), Test performed on 04/04/2020 10:50 AM RBC - 4.04 10 6/ul (low), HGB - 9.5 g/dl (low), HCT - 30.2 % (low), MCV - 74.8 fl (low), MCH - 23.5 pg (low), RDW - 17.4 % (high) and Platelet Count - 639 10 3/cmm (high). Imaging: Radiation therapy imaging related to accurate target localization (i.e. KV, MV and CBCT) was reviewed. Appropriate changes, if any, were made to ensure treatment accuracy. Plan: The patient is tolerating therapy reasonably well. Radiotherapy will continue as planned. CPT: 12202 Signed by: Dr. Beny Cortés 04/07/2020 1:19:08 PM
[2020-04-07] MEDS: sodium chloride 0.9% 250 ML 999 ML IV (16:53)
[2020-04-08] MEDS: HYDROmorphone 1 mg/mL INJ 1 mL IV (10:00)
[2020-04-08] MEDS: sodium chloride 0.9% 500 ML 75 ML IV (10:03)
[2020-04-08 11:01] LABS: Alanine Aminotransferase 37 U/L (0-33); Alkaline Phosphatase 157 IU/L (35-105); Anion Gap 11.4 (5-19); Aspartate Amino Transferase 19 U/L (0-32); Blood Urea Nitrogen 8 mg/dL (6-20); Calcium 8.3 mg/dL (8.5-10.5); Carbon Dioxide 31 mmol/L (22-29); Chloride 90 mmol/L (98-107); Globulin 2.5 g/dL (1.3-4.6); Glomerular Filtration Rate 172.6 mL/min (90-130); Glucose 109 mg/dL (65-115); Osmolality Calculated 269 mOsm/kg (285-295); Sodium 130 mmol/L (136-145); Total Bilirubin 0.2 mg/dL (0.15-1.2); Total Protein 5.5 g/dL (6.6-8.7)
[2020-04-08 11:02] LABS: Potassium 2.4 mmol/L (3.5-5.1)
[2020-04-11 09:45] VITALS: RESP 18; O2SAT 98
[2020-04-11] MEDS: HYDROmorphone 1 mg/mL INJ 1 mL IV (09:45)
[2020-04-11 10:31] LABS: Alanine Aminotransferase 66 U/L (0-33); Albumin Level 2.8 g/dL (3.5-5.2); Alkaline Phosphatase 504 IU/L (35-105); Anion Gap 11.1 (5-19); Aspartate Amino Transferase 67 U/L (0-32); Blood Urea Nitrogen 6 mg/dL (6-20); Calcium 8.5 mg/dL (8.5-10.5); Carbon Dioxide 24 mmol/L (22-29); Chloride 99 mmol/L (98-107); Globulin 3.2 g/dL (1.3-4.6); Glomerular Filtration Rate 133.4 mL/min (90-130); Glucose 138 mg/dL (65-115); Magnesium 1.6 mg/dL (1.7-2.3); Osmolality Calculated 272 mOsm/kg (285-295); Potassium 3.1 mmol/L (3.5-5.1); Sodium 131 mmol/L (136-145); Total Bilirubin 0.2 mg/dL (0.15-1.2)
[2020-04-12] MEDS: lidocaine-prilocaine cream 5 gm 1 APPLIC TOPICAL (09:15)
[2020-04-12] MEDS: sodium chloride 0.9% 500 ML IV (09:15)
[2020-04-12 09:30] VITALS: RESP 18; O2SAT 99
[2020-04-12] MEDS: HYDROmorphone 1 mg/mL INJ 1 mL IV (09:30)
[2020-04-13 10:16] LABS: Alanine Aminotransferase 33 U/L (0-33); Albumin Level 2.9 g/dL (3.5-5.2); Alkaline Phosphatase 275 IU/L (35-105); Anion Gap 11.9 (5-19); Aspartate Amino Transferase 17 U/L (0-32); Blood Urea Nitrogen 7 mg/dL (6-20); Calcium 8.1 mg/dL (8.5-10.5); Carbon Dioxide 23 mmol/L (22-29); Chloride 101 mmol/L (98-107); Globulin 2.7 g/dL (1.3-4.6); Glomerular Filtration Rate 172.6 mL/min (90-130); Glucose 117 mg/dL (65-115); Osmolality Calculated 275 mOsm/kg (285-295); Sodium 133 mmol/L (136-145); Total Bilirubin 0.2 mg/dL (0.15-1.2); Total Protein 5.6 g/dL (6.6-8.7)
[2020-04-13 10:20] LABS: Potassium 2.9 mmol/L (3.5-5.1)
[2020-04-13] MEDS: sodium chloride 0.9% (100 ml) 100 ML 35 ML (11:15)
[2020-04-13] MEDS: potassium chloride premix 100 ML 25 MEQ IV (11:15)
[2020-04-13 12:30] VITALS: RESP 18; O2SAT 98
--- NOTE | 2020-04-13 18:47 | ONCRAD TMN_ITS ---
Radiation Oncology Weekly Treatment Management Patient: Morris Thayer MR#: [id number] : 1975 Age: 44 Sex: Female Dictated by: Dr. Beny Cortés Date of Service: 04/13/2020 Diagnosis: -) Patient has HIV, polysubstance abuse, and metastatic colon cancer initially staged in September of 2013 as pT3 pN1b M0, positive K-barby mutation, positive MMR proficient. Metastasis was confirmed in 2018 status post resection of a perisplenic mass, and now the patient has biopsy-proven recurrence of colon cancer in the left upper quadrant of the abdomen. 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 Cristian Bourgeois -09/25/2013), complicated with an abscess in the operative bed. 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 -) Exploratory laparotomy and drainage of intra-abdominal abscess with partial gastric resection due to a gastric leak (12/19/2017). -) Re-exploration of the abdomen for gastric leak and (01/03/2018) -) 3 cycles of modified FOLFOX (12/09/2018 -01/06/2019) -) 3 cycles of FOLFIRI/Avastin (03/09/2019-04/13/2019) -) Multiple courses of antibiotic coverage due to intra-abdominal abscess Anal margin: -) Concurrent chemoradiation therapy to an aggregate dose of 55.8 Gy/31 fractions (10/06/2015-11/28/2015). Concurrent chemotherapy consisted of mitomycin-C and Xeloda. Current Palliative Radiotherapy Plan: The patient has biopsy-proven colon metastasis in the left upper quadrant of the abdomen causing small bowel obstruction symptoms. The metastatic focus measures over 5 cm, it abuts and wraps around the left kidney, it invades the pancreatic tail, and it also involves the stomach. Given the patient's multiple surgeries, multiple postsurgical abscesses, and the degree of intra-abdominal scarring, there are no surgical options to palliate her symptoms. Plan is for high-dose palliation to an aggregate dose of 50.4 Gy in 28 fractions via IMRT. Radiotherapy to date: Course: Colon 2019, Treatment Site: Colon 28FX, Ref. ID: [id number], Energy: 15X/6X, Dose/Fx (cGy): 180, #Fx: , Dose Correction (cGy): 0, Total Dose (cGy): 3,060, Start Date: 03/21/2020, Elapsed Days: 23 Reason for visit: The patient is being seen today as part of their regularly scheduled weekly on treatment visits to assess for acute toxicities from radiotherapy. Interim History: During her on visit treatment today, the patient reports improved bowel movements, and improved abdominal pain. Current Medications: Amoxicillin-Pot Clavulanate, atropine Sulfate, avastin, back & Body Extra Strength, cATH-BEE[place] ACTIVASE, celeXA, citalopram Hydrobromide, colace, combivent Respimat, compazine, cVS Senna, dexamethasone, dexamethasone Sodium Phosphate, diflucan, dilaudid, hipgezezb-Pxsvpxnnc-Gdqnltaw, dOK Plus, fluconazole, fluorouracil, gabapentin, hydrocodone-Acetaminophen, hYDROmorphone HCl, irinotecan HCl, keflex, lactulose, lantus SoloStar, leucovorin Calcium, levoFLOXacin, lidocaine-Prilocaine, lORazepam, lORazepam, lunesta, methylnaltrexone [place], metoprolol Tartrate, nystatin, ondansetron, ondansetron HCl, ondansetron HCl, oxyCODONE HCl, oxyCODONE HCl ER, oxyCODONE HCl ER, oxyCODONE-Acetaminophen, oxyCODONE-Acetaminophen, palonosetron HCl, phenazopyridine HCl, potassium Chloride, prochlorperazine Maleate, protonix, reglan, relistor, senna-GRX, senokot S, sodium Chloride, tobrex, ventolin HFA, zofran, zofran ODT. Allergies: Morphine Sulfate, PROzac and Ziagen. Current Complaints/Review of Systems: Constitutional - Complains of lack of appetite but is improving. Complains of mild fatigue. Denies fever, night sweats and change in weight. Integumentary - Has no irritation or redness to the area of treatment. Gastrointestinal - Complains of abdominal pain that is persistent which is generalized / diffuse in nature associated with abdominal bloating. Complains of satiety. Denies heartburn / dyspepsia, melena / GI bleeding, nausea and vomiting. Has a colostomy and is able to have more soft formed stools. Genitourinary (F) - Complains of dysuria occasionally. Complains of nocturia 1-3 time/night gets up about 4 to 5 times per night. Complains of longstanding urine color change described as dark yellow. Denies frequency, urgency, vaginal discharge / bleeding and vaginal spotting. Vital Signs: Performed on 04/13/2020 10:40 AM Height - 65.00 in, Temperature - 98.7 f, Pulse - 83 /min, Respiration - 18 /min, O2 Sat - 98 %, Pain - 5, Fatigue - 5, BP - 116/ 74 mm(hg), Performed on 04/13/2020 10:58 AM BMI - 19.736 kg/m2, Height - 65.00 in, Weight - 118.6 lbs, Temperature - 98.7 f, Pulse - 83, Respiration - 18, O2 Sat - 98 %, Pain - 7 and BP - 116/ 74 mm(hg). Physical Exam: Appears stable, no skin erythema or desquamation. Performance Status: 2 - Ambulatory/capable of all self-care, unable to perform any work activities. Up and about more than 50% of waking hours. (ECOG) Lab: None pending in Radiation Oncology. Imaging: Radiation therapy imaging related to accurate target localization (i.e. KV, MV and CBCT) was reviewed. Appropriate changes, if any, were made to ensure treatment accuracy. Plan: The patient is tolerating therapy reasonably well. Radiotherapy will continue as planned. CPT: 45735 Signed by: Dr. Beny Cortés 04/13/2020 6:46:20 PM
[2020-04-14 09:20] VITALS: RESP 18; O2SAT 98
[2020-04-15 09:15] VITALS: RESP 18; O2SAT 96
[2020-04-15] MEDS: HYDROmorphone 1 mg/mL INJ 1 mL IV (09:15)
[2020-04-18 10:15] VITALS: RESP 18; O2SAT 98
[2020-04-18] MEDS: HYDROmorphone 1 mg/mL INJ 1 mL IV (10:15)
[2020-04-18] MEDS: sodium chloride 0.9% 500 ML IV (10:15)
[2020-04-18] MEDS: alteplase 1 mg/mL SDV 2 mL 2 MG INTRACATH (10:30)
[2020-04-18 13:08] LABS: Basophils # 0.1 10^3/uL (0.0-0.1); Basophils % 0.8 %; Eosinophils # 0.1 10^3/uL (0.0-0.8); Eosinophils % 2.1 %; Hematocrit 25.8 % (37.0-47.0); Hemoglobin 7.9 g/dL (11.5-15.3); Lymphocytes # 1.6 10^3/uL (0.8-4.8); Lymphocytes % 24.6 %; Mean Corpuscular HGB Conc 30.6 g/dL (30.0-36.0); Mean Corpuscular Hemoglobin 23.4 pg (28.0-34.0); Mean Corpuscular Volume 76.6 fL (81-99); Mean Platelet Volume 10.2 fL (7.4-10.4); Monocytes # 0.5 10^3/uL (0.2-0.9); Neutrophils # 4.26 10^3/uL (1.8-7.7); Nucleated Red Blood Cells % 0 %; Platelet Count 568 10^3/cmm (130-400); Red Blood Count 3.37 10^6/uL (4.1-5.3); Red Cell Distribution Width 18.9 % (12.1-15.1); White Blood Count 6.6 10^3/uL (4.0-10.0)
[2020-04-18 13:23] LABS: Alanine Aminotransferase 17 U/L (0-33); Albumin Level 2.5 g/dL (3.5-5.2); Alkaline Phosphatase 242 IU/L (35-105); Aspartate Amino Transferase 12 U/L (0-32); Blood Urea Nitrogen 6 mg/dL (6-20); Calcium 7.5 mg/dL (8.5-10.5); Carbon Dioxide 22 mmol/L (22-29); Chloride 106 mmol/L (98-107); Globulin 2.6 g/dL (1.3-4.6); Glomerular Filtration Rate 240.6 mL/min (90-130); Glucose 83 mg/dL (65-115); Osmolality Calculated 277 mOsm/kg (285-295); Sodium 135 mmol/L (136-145); Total Bilirubin 0.2 mg/dL (0.15-1.2); Total Protein 5.1 g/dL (6.6-8.7)
[2020-04-19 06:57] LABS: Iron 14 ug/dL (37-145); Total Iron Binding Capacity 200 mcg/dl; Unsaturated Iron Binding 186 ug/dL (112-347)
[2020-04-19] MEDS: sodium chloride 0.9% 500 ML IV (09:00)
[2020-04-19 09:30] VITALS: RESP 18; O2SAT 99
[2020-04-19] MEDS: HYDROmorphone 1 mg/mL INJ 1 mL IV (09:30)
[2020-04-20 08:40] VITALS: RESP 18; O2SAT 99
[2020-04-20] MEDS: HYDROmorphone 1 mg/mL INJ 1 mL IV (08:40)
[2020-04-20] MEDS: sodium chloride 0.9% 500 ML IV (09:25)
[2020-04-21 09:50] VITALS: RESP 18; O2SAT 98
[2020-04-21] MEDS: HYDROmorphone 1 mg/mL INJ 1 mL IV (09:50)
[2020-04-21] MEDS: sodium chloride 0.9% 500 ML IV (09:50)
[2020-04-21] MEDS: ferric carboxy (IVPB) 750 MG in sodium chloride 0.9% (100 ml) 100 ML 345 MG IV (10:40)
--- NOTE | 2020-04-22 15:51 | ONC FU_ITS ---
Dr. Cooney Patient Follow-Up Note Patient: Flaca Caceres Unit #: [id number]: [id number] Dicatated By: Quinn Cooney M.D.Date of Visit:Apr 18, 2020 Onc Med Follow-up/Prog Note Chief Complaint: Colon cancer and anal margin skin cancer. History of Present Illness: This is a 44 year-old woman with recurrent/metastatic colon cancer and anal margin skin cancer. She has a history of HIV infection acquired through prior IV drug use, diagnosed in 1993. She had a high viral load, CD4 counts of 300. She had been followed by Dr. Goss and Shalini Simeon at [facility] in [place], [place]. She had started treatment with Atripla, though she had been without any history of AIDS defining illnesses. She was then admitted with an acute large bowel obstruction. Her CT of the abdomen and pelvis on 09/24/2013 showed 5 cm mass in the splenic flexure with massive distention of the colon. There were no lesions in the liver. Chest x-ray was unremarkable. CEA 1.0. On 09/25/2013 she was taken to OR for exploratory laparotomy, left hemicolectomy, and transverse end colostomy by Dr. Cristian Bourgeois. 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 There was involvement in 3 out of 7 lymph nodes. Thus, her disease was pathologic stage IIIB (pT3, pN1b, M0). CD4 counts were at 458. Left-sided Port-A-Cath placed. Adjuvant chemotherapy with FOLFOX regimen for 4 cycles delivered 10/21/2013-03/08/2014. She had multiple interruptions, and noncompliance. She had an abscess collection at the surgical bed, underwent a CT-guided percutaneous drainage. For Escherichia coli infection, she received 14 days of Invanz via port. CT of the abdomen and pelvis on 02/15/14 showed no disease progression, although she had a pre-sacral mass inseparable from the colon, which was present since 09/24/2013. There was no further abscess. On 04/04/2014 she had an abdominal pain due to prolapsed bowel in stoma, presented to ED. The urine toxicology screen was positive for amphetamine and THC screen. On 04/09/2014 she was admitted with fever, thought to be due to Port-A-Cath infection. Port-A-Cath was removed, cultures negative. Once again the patient was lost to followup, and did not return for the scheduled appointments. 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 Capecitabine and Oxaliplatin was attempted, cycle 1 on 06/02/14, cycle 2 on 07/14/14. In total, she has received 6 cycles of the oxaliplatin-based treatment, with significant interruptions in her care from 10/21/2013 till 07/14/14. She continued on expectant management; missed her follow up appointments. PET/CT on 11/27/2014 showed no evidence of recurrent malignancy. There was an enlarged left ovary for which ultrasound was recommended. She failed to return for ultrasound or for her scheduled follow-up visits. In interim she underwent perineal and vaginal papulosis treatment by Dr. Bonds. In April 2015 she had progressive night sweats, and progressive pain in the anal / pelvic region. A CT of the pelvis on05/04/2015 revealed several nodular lesions in the pelvis including an 1.9 cm in the vaginal wall, a 4.2 cm in the presacral region, an 1.25 cm adjacent to the left ovary. Clinically she had significant tenderness in the vaginal wall and labia. On 07/04/2015 she underwent an exam under anesthesia, by Dr. Bonds and Dr. Munoz. A large perianal mass with vaginal fistula and open wound was found. She required fistulotomy with the biopsy and excision of the anal mass as well as dilation and curettage. 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 She was then again lost to follow-up here. She was reached in August 2015. At that point an ulcerated, symptomatic anal margin mass measuring 3 cm at 3:00 position was apparent. Restaging PET/CT on 10/01/2015 revealed persistent primary anal malignancy increased in size, 2 subcentimeter conjoint suspicious pulmonary nodules in the right lower lobe and FDG negative presacral mass increased to 5 cm. 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 Small right lower lobe pulmonary nodule was suspicious for metastatic disease. Concurrent combined chemotherapy with Mitomycin and Xeloda together with radiation treatment began on 10/06/2015. Her treatment was complicated with significant radiation-induced toxicity and perineal pain. Clinically, the ulcerated lesion had decreased in size. She completed radiation on 11/28/2015 to a total dose of 5580 cGy. She was seen here for a follow-up visit on 02/16/2016. At that time she was having fever, abdominal pain, and vomiting. A CT abdomen/pelvis at that time showed a new mesenteric nodule in the left upper abdomen measuring 1.7 x 2.2 cm. Metastasis was not excluded. There was moderate hepatomegaly and hepatic steatosis. Her laboratory studies were unremarkable except for low albumin at 2.9 g/dL. She failed to return for follow-up. She was seen at the emergency room at [facility] on 10/22/2017. CT abdomen/pelvis showed interval enlargement of a lobulated cystic structure in the splenic hilum measuring 4.2 x 4.1 cm. She was seen for follow-up here on 10/28/2017. At that time she had a large stomal hernia and significant prolapse of colon at her ostomy site. She was referred to Dr. Bourgeois. She underwent colonoscopy on 12/10/2017. The transverse colon was examined to the transverse colostomy, but the ascending colon could not be visualized. Two days later she presented to the emergency room with severe abdominal pain. She was admitted to [facility] in [place] with evidence of perforated viscus. On 12/12/2017 she underwent emergency exploratory laparotomy with resection of perisplenic mass, splenectomy, and omentectomy. She also underwent reduction of the colon prolapse and reduction of the stomal hernia. Pathology showed well-differentiated mucinous adenocarcinoma involving the perisplenic fat. The tumor measured 7.2 cm in diameter. There was invasion into the spleen and pancreas. Tumor was noted at the edge of the specimen. The omentum was not involved. The tumor was found to harbor a K-barby mutation (c.35G>A). Mismatch repair proteins were found to be intact. On 12/19/2017 she required exploratory laparotomy with drainage of intra-abdominal abscess and partial gastric resection. On 01/03/2018 showed a re-exploration of the abdomen for gastric leak. The procedure included extensive lysis of adhesions, esophagogastroduodenoscopy, and placement of LEIGHA gastrostomy jejunostomy feeding tube. She had gradual recovery and was then able to be discharged to the shelter in [place]. She eventually was able to return home with her mother in January. Restaging PET/CT on 06/07/2018 showed a new minimally hypermetabolic left periaortic lymph node measuring 1.7 cm, SUV 2.4. It was felt to be suspicious for recurrence. There were no other suspicious lesions identified. She then had further pathologic evaluation with a [facility] genetic sequencing study. It confirmed the presence of the G12D KRAS mutation and it also confirmed the tumor to be MSI stable. Tumor mutation burden was noted to be low and the NTRK fusion was not detected. I had seen her for a follow-up visit on 07/08/2018. In the absence of any significant disease progression, I had recommended that we continue on observation/expectant management. Restaging CT scans of the abdomen and pelvis on 10/16/2018 show recurrent tumor in the area of the previously noted mass, measuring 3.1 cm. There was interval development of retroperitoneal left periaortic lymphadenopathy measuring up to 14 mm. There was no inguinal or mesenteric adenopathy noted. There was further enlargement of the parastomal hernia measuring 6.5 cm compared to 4.2 cm on the previous study from October 2017. In the setting of further disease progression, she was agreeable to restarting chemotherapy with modified FOLFOX. There was some delay in starting treatment while arrangements were made for placement of Port-A-Cath venous access device by interventional radiology at [facility]. Her medical illnesses include colon cancer, anal margin skin cancer, HIV disease, COPD, hypertension, hypertriglyceridemia, and hypothyroidism. She also has a history of having been treated for cervical cancer. She smokes 1 pack of cigarettes daily, and she has history of polysubstance abuse. INTERIM HISTORY: She began cycle 1 of modified FOLFOX on 12/09/2018. It was administered without 5-FU bolus. She had been having nausea/vomiting prior to surgery the chemotherapy, and it worsened afterwards to the point that she required admission to the hospital for IV fluids and IV anti-emetics. She was sick for about a week after that treatment. Following discharge from the hospital she had no further nausea/vomiting. She continued with cycle 2 of modified FOLFOX on 12/22/2018 and with cycle 3 on 01/06/2019. At her follow-up visit on 01/20/2019 her treatment was put on hold pending outcome of a restaging PET/CT. That study was completed on 02/12/2019. It showed increased metabolic activity in the left upper abdominal mass measuring 3.2 x 2.0 cm, maximum SUV 6.29. Also noted were FDG avid upper retroperitoneal and para-aortic retroperitoneal lymph nodes, consistent with metastatic disease. There did not appear to be obvious disease progression compared to a prior CT scan from 10/28/2018. However, she also did not appear to be showing any significant response, and in the setting of worsening symptoms, I did opt to change her treatment to a FOLFIRI chemotherapy regimen in combination with Avastin. She began cycle 1 of FOLFIRI/Avastin on 03/09/2019. She did require IV hydration and antibiotics for chemotherapy-induced nausea/vomiting, but she otherwise tolerated it with acceptable toxicity. She continued with cycle 2 on 03/23/2019. Subsequent to that treatment she was given a course of Valtrex for suspected herpes zoster. At her followup visit on 04/13/2019 she was feeling better, and she continued with cycle 3 of FOLFIRI/Avastin. She subsequently returned with worsening cough and associated hemoptysis. Her chest CT on 04/17/2019 showed a thick-walled cavitary mass in the superior segment left lower lobe measuring 3.8 x 4.1 x 4.3 cm. The appearance was thought to be consistent with neoplasm versus infectious process. She was admitted to the hospital and began empiric antibiotic coverage with Presalin tazobactam and IV vancomycin. She was then discharged home to continue antibiotic coverage with levofloxacin and Augmentin. Her sputum subsequently came back positive for AFB, and the culture grew nocardia. She was then admitted to [facility] in [place] where she completed a course of IV antibiotic therapy with Primaxin and Bactrim. She was recommended to continue oral antibiotic coverage with Bactrim and minocycline for a total of 1 year of treatment. As of her follow-up visit on 07/07/2019 her chemotherapy remained on hold. She was having abdominal pain and nausea/vomiting. Abdominal x-ray at that time showed no bowel dilatation and no free air. She was given IV hydration and IV antiemetic therapy. On 08/10/2019 she ended up being admitted to [facility] in [place] where she underwent surgery for bowel perforation. She was discharged home with a surgical drain in place and on antibiotic coverage with linezolid 600 mg twice daily together with fluconazole 200 mg daily. I had seen her for a follow-up visit on 07/17/2019. At that point she had restarted antibiotic coverage with linezolid due to recurrence of abdominal pain. She had a repeat CT abdomen/pelvis on 10/26/2019. It showed no significant improvement in the left upper quadrant soft tissue mass which was noted to be inseparable from the stomach, splenic flexure, tail of pancreas, and superior left kidney. The appearance was felt to be consistent with abscess versus necrotic neoplasm. Also noted was left upper quadrant mesenteric tethering with increasing soft tissue deposits suspicious for metastatic lesions. There was increased soft tissue surrounding the aorta consistent with metastatic adenopathy versus fibrosis. There was evidence of parastomal hernia with no obstruction. With those findings, I did have her continue antibiotic therapy for the abscess. As of her followup visit in November 2019 she continued antibiotic coverage with linezolid. She appeared stable clinically with no obvious progression of the colon cancer. At her followup visit in January 2020 she reported increased pain in her back and in her left side, and she had developed 2 knots on her spine. Repeat CT scan of the abdomen/pelvis showed significant progression of the neoplastic process in left upper quadrant with invasion of the stomach, kidney, pancreas, and proximal jejunum. The invasion of the jejunum appeared to be causing moderate but incomplete small bowel obstruction. Also noted were increasing metastatic nodule deposits and lymph nodes around the celiac axis and encasement of the aorta by soft tissue at the level of the SMA and renal arteries. I felt that it was unlikely that she would benefit with further chemotherapy, but as her symptoms appear to be associated with localized disease in the left abdomen, I felt that she potentially would benefit with radiation. Due to the fact that she also has been treated for abscess in that area, the radiation oncologist had requested biopsy to document the pathology. This became problematic, but we were eventually able to obtain a CT-guided biopsy of the left upper quadrant abdominal mass at [facility] on 02/25/2020. Pathology showed metastatic adenocarcinoma with mucinous features, consistent with colorectal origin. She began palliative radiation on 03/21/2020. I had time she was having recurrent nausea/vomiting, and she was having difficulty with her pain management, she was not able to keep down medications. As such, she was given IV hydration, IV antiemetics, and IV pain medication on a regular basis. She is seen for a follow-up visit. She has been feeling somewhat better this past week, as her nausea has been controlled better and she has been having regular bowel movements. She is eating some. She has been able to do some light work at home. ECOG score is 1. She does not have fever or night sweats. She does not complain of shortness of breath, cough, or chest pain. She still has some nausea, but not nearly as much. She does not complain of heartburn or acid. Her bladder function remains adequate, but she does complain that she has not been voiding very much. Recently she has developed some swelling. She continues to have pain in her back and on her left side, but she is controlling it with medication. She does not complain of headache or dizziness. She has no focal neurologic symptoms. Medications: Back & Body Extra Strength 2 (500-32.5 mg) Tablet Oral q 6 hours, Combivent Respimat 1 Puff(s) (of 20-100 mcg/act) Aerosol, solution Inhalation q 6 hours PRN, CVS Senna 1 Tablet (of 8.6 mg) Oral b.i.d., DOK Plus 1 Tablet (of 50-8.6 mg) Oral b.i.d., Lantus SoloStar 12 Units (of 100 Units/mL) Subcutaneous daily, LORazepam 1 mg Tablet Oral b.i.d. PRN, Ondansetron HCl 1 Tablet (of 8 mg) Oral q 8 to 12 hours PRN, oxyCODONE HCl ER 1 (15 mg) Tablet ER 12 HR Abuse-Deterrent Oral b.i.d., oxyCODONE-Acetaminophen 1 Tablet (of 10-325 mg) Oral q 8 hours PRN Allergies: Morphine Sulfate, PROzac, and Ziagen. Review of Systems: Constitutional - Her energy has improved. She is able to do light housework. Her appetite has improved and her weight is stable. No fever, night sweats, or hot flashes. ECOG score is 1, ENMT - No sinus congestion/drainage. No mouth sores. No sore throat or difficulty swallowing, Hematologic/Lymphatic - No abnormal bruising or bleeding, Respiratory - No shortness of breath. No cough. No pleuritic pain or hemoptysis, Cardiovascular - No angina pain. No palpitations, Gastrointestinal - She has has nausea this morning but otherwise she has not had any vomiting. No heartburn or acid reflux. Her bowels are more No diarrhea or constipation. No blood in the stool or black stools, Genitourinary (F) - No dysuria or hematuria. No urinary frequency. No urgency or incontinence. She is not voiding much, Musculoskeletal - She has pain in her back and in her left side, Integumentary - No skin complications, Neurologic - No headache or dizziness. No numbness or tingling. No other focal neurologic symptoms, Psychiatric - No anxiety or depression. She has chronic insomnia. Vital Signs: Performed on Apr 18, 2020 09:26 Height - 65.00 in Weight - 119.4 lbs (HIGH) BSA - 1.59 sq.m BMI - 19.87 Temperature - 98.9 F (HIGH) Pulse - 89 /min Respiration - 18 /min BP - 94/60 mm(hg) O2 Sat - 97 % Pain - 7 Fatigue - 2 Physical Examination: Constitutional - She appears chronically ill, Eyes - Sclerae nonicteric. Conjunctivae clear, ENMT - No lesions noted in the oral cavity, Hematologic/Lymphatic - No cervical, clavicular, or axillary adenopathy, Respiratory - Lungs sound clear with diminished air movement bilaterally, Cardiovascular - Heart rhythm is regular. There is no murmur, gallop, or rub noted, Abdomen - Soft. Liver is not enlarged. There is no abdominal mass or ascites noted. There is no inguinal adenopathy, Extremities - Slight edema, Neurologic - No focal neurologic deficits noted. Lab/Imaging: Test performed on Apr 18, 2020 12:25 Sodium 135 mmol/L Potassium 3.0 mmol/L Chloride 106 mmol/L CO2 22 mmol/L Anion Gap 10.0 BUN 6 mg/dL Creatinine 0.3 mg/dL Cr Clearance (Est) 197.39 mL/min eGFR 240.6 mL/min Glucose 83 mg/dL Osmolality - Calculated 277 mOsm/kg Calcium 7.5 mg/dL Protein, Total 5.1 g/dL Albumin 2.5 g/dL Globulin 2.6 g/dL Bilirubin, Total 0.2 mg/dL ALT (SGPT) 17 U/L AST (SGOT) 12 U/L Alkaline Phosphatase 242 IU/L WBC 6.6 10 3/uL RBC 3.37 10 6/uL HGB 7.9 g/dL HCT 25.8 % MCV 76.6 fL MCH 23.4 pg MCHC 30.6 g/dL RDW 18.9 % Platelet Count 568 10 3/cmm MPV 10.2 fL Neutrophils 4.26 10 3/uL Lymphocytes 1.6 10 3/uL Monocytes 0.5 10 3/uL Eosinophils 0.1 10 3/uL Basophils 0.1 10 3/uL Neutrophil % 65.0 % Lymphocyte % 24.6 % Monocyte % 7.0 % Eosinophil % 2.1 % Basophils % 0.8 % NRBC % 0 % Impression: 1. 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 Her tumor was found to harbor a KRAS mutation, and it was found to be MMR proficient. 2. She underwent left hemicolectomy with transverse and colostomy on 09/25/2013. 3. Adjuvant chemotherapy was attempted but was suboptimal due to poor compliance. Treatment was limited to 4 cycles of adjuvant FOLFOX, completed in February 2014, followed by 2 additional cycles of CapOx, completed in June 2014. 4. 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 She had associated vaginal fistula with open draining wound. By clinical evaluation her disease was at least stage IIIA or possibly stage IV, depending on the status of small pulmonary nodules. 5. She underwent treatment with chemoradiation utilizing mitomycin C/capecitabine for chemosensitization. Radiation was completed on 11/28/2015 to a total dose of 5580 cGy. 6. On 12/12/2017 she underwent emergency exploratory laparotomy for perforated viscus following surveillance colonoscopy. The procedure included resection of perisplenic mass, splenectomy, omentectomy, reduction of prolapse colon, and reduction of parastomal hernia. Tumor was noted at the edge of the specimen. 7. Her postoperative course was complicated by abdominal abscess and by gastric leak, requiring additional surgeries including placement of LEIGHA gastrostomy jejunostomy feeding tube. Her other medical illnesses include: 8. Hypertension. 9. Hypertriglyceridemia. 10. COPD. 11. She has underlying HIV disease. 12. She has history of polysubstance abuse. 13. She has also been treated for cervical cancer. Her restaging PET/CT on 06/07/2018 showed a new minimally hypermetabolic left periaortic lymph node measuring 1.7 cm, SUV 2.4. It was felt to be suspicious for recurrence. There were no other suspicious lesions identified. As of her follow-up visit in June 2018 her clinical status had continued to show gradual improvement. Her PET/CT scan at that point had shown findings which were suggestive of disease progression, limited to mildly enlarged periaortic lymphadenopathy. With those findings, I had recommended observation/expectant management. In October she had presented with nausea/vomiting, and there was evidence of further disease progression by CT scan. At that point she was agreeable to restarting chemotherapy with modified FOLFOX. There was some delay while arrangements were made for placement of Port-A-Cath venous access device. She began cycle 1 of modified FOLFOX on 12/09/2018. Her nausea/vomiting initially had worsened, requiring hospital admission for IV hydration and IV anti-emetics. She subsequently felt better, and she was able to complete 2 additional cycles of treatment. Her treatment was then put on hold pending outcome of restaging PET/CT. It showed persistent disease in the left upper abdominal quadrant and in retroperitoneal lymph nodes. During that time she had developed worsening GI symptoms, and she also experienced a significant decline in her performance status. As such, I opted to change her treatment to a FOLFIRI chemotherapy regimen in combination with Avastin. She began cycle 1 of FOLFIRI/Avastin on 03/09/2019. She required IV hydration for postchemotherapy nausea/vomiting. She was able to continue with cycle 2 on 03/23/2019. She began cycle 3 on 04/13/2019 after a 1-week delay due to a skin eruption in the coccygeal/perineal area, thought to be due to herpes zoster. She had subsequently returned with worsening cough and development of hemoptysis. Her chest CT on 04/17/2019 showed thick walled a cavitary lesion in the upper lobe of the left lung. The appearance was felt to be consistent with neoplasm or infectious process. Her sputum was found to be positive for AFB, and the culture subsequently grew nocardia. She was admitted to [facility] in [place], where she completed a course of IV antibiotic therapy with Primaxin and Bactrim. She was then transitioned to oral antibiotic coverage with Bactrim and minocycline. She was recommended to continue it for a total of 1 year of treatment. Her chemotherapy remained on hold during this time. At her follow-up visit on 07/07/2019 she had presented with fairly acute onset of abdominal pain and vomiting. Her abdominal x-ray showed no bowel dilatation or free air, and she was given symptomatic management. In July she was admitted to [facility] where she underwent surgery for bowel perforation. She had been showing gradual recovery. As of her follow-up visit on 10/16/2019 she had restarted antibiotic coverage with linezolid due to recurrence of abdominal pain. A repeat CT abdomen/pelvis on 10/26/2019 showed persistent mass in the left upper quadrant consistent with necrotic neoplasm versus abscess. I did review that study with the radiologist, and it did appear likely that there was at least some residual abscess. Other findings, though, were suspicious for progression of the underlying neoplasm. With those findings, I did opt to have her continue antibiotic coverage with linezolid. She also was given Marinol for anorexia/nausea. As of her follow-up visit in November 2019 she was feeling somewhat better. At her followup visit on 02/09/2020 she reported significantly worsening of abdominal pain, and she had associated weight loss and declining performance status. She has since then developed recurrent vomiting of brown liquid. Her repeat CT abdomen/pelvis shows significant disease progression. Her CT and clinical findings were consistent with developing small bowel obstruction. She was eventually confirmed by CT directed needle biopsy of the left upper quadrant abdominal mass to have metastatic adenocarcinoma consistent with colorectal primary. On 03/21/2020 she began palliative radiation to that area. She has had symptomatic improvement with the radiation, including improvement in the nausea/vomiting. She is having bowel movements more regularly, and she has been able to start eating. She still has pain in her back and left side, but is being managed adequately with her pain medication. She has now become significantly anemic, and her serum iron studies are consistent with iron deficiency. Plan: She will continue with her course of radiation therapy, and she will continue her symptomatic treatment measures. Beyond that, her treatment options are going to be very limited, and her overall prognosis remains poor. She has had very poor tolerance for oral iron supplements due to her ongoing GI symptoms, she will be given parenteral iron replacement with Injectafer, that will be subject to verification of insurance coverage. Signed By: Quinn Cooney M.D. <<Signature on File>>
== END 2020-04-23 23:59 | disposition home or self-care (01) ==
LOC: ONCMED 05:46
PROVIDERS: Internal Medicine Medical Oncology; Nurse Practitioner; Visit Provider Radiology Radiation Oncology
DX: Z51.0 Encounter for antineoplastic radiation therapy (principal); Z51.11 Encounter for antineoplastic chemotherapy; C18.9 Malignant neoplasm of colon, unspecified; C78.89 Secondary malignant neoplasm of other digestive organs; C79.89 Secondary malignant neoplasm of other specified sites; B20 Human immunodeficiency virus [HIV] disease; Z90.49 Acquired absence of other specified parts of digestive tract; Z85.048 Personal history of other malignant neoplasm of rectum, rectosigmoid junction, and anus
CPT/HCPCS: 36593; 77014; 77336; 77386; 80053; 83540; 83550; 83735; 85025; 96361; 96365; 96366; 96367; 96374; 96375; 99214; J1100; J1170; J1439; J2405; J2997; J3480; J7040; J7050

== ENCOUNTER 2020-04-28 05:26 | Outpatient (RCR) | payer MEDICARE, MEDICAID, SELFPAY ==
[2020-04-25 09:20] VITALS: RESP 18; O2SAT 96
[2020-04-25] MEDS: HYDROmorphone 1 mg/mL INJ 1 mL IV (09:20)
[2020-04-26] MEDS: sodium chloride 0.9% 500 ML 999 ML IV ×2 (09:20→09:28)
[2020-04-27 09:30] VITALS: RESP 18; O2SAT 98
[2020-04-27] MEDS: HYDROmorphone 1 mg/mL INJ 1 mL IV (09:30)
[2020-04-27] MEDS: sodium chloride 0.9% 500 ML 999 ML IV (09:30)
[2020-04-28 10:04] LABS: Anion Gap 11.5 (5-19); Blood Urea Nitrogen 4 mg/dL (6-20); Calcium 8.4 mg/dL (8.5-10.5); Carbon Dioxide 26 mmol/L (22-29); Chloride 102 mmol/L (98-107); Glomerular Filtration Rate 240.6 mL/min (90-130); Glucose 90 mg/dL (65-115); Osmolality Calculated 280 mOsm/kg (285-295); Sodium 137 mmol/L (136-145)
[2020-04-28 10:14] LABS: Potassium 2.5 mmol/L (3.5-5.1)
== END 2020-05-23 23:59 | disposition home or self-care (01) ==
LOC: ONCMED 05:26
PROVIDERS: Visit Provider Nurse Practitioner
DX: C18.4 Malignant neoplasm of transverse colon (principal); C21.0 Malignant neoplasm of anus, unspecified; C79.89 Secondary malignant neoplasm of other specified sites; D50.9 Iron deficiency anemia, unspecified; I10 Essential (primary) hypertension; E03.9 Hypothyroidism, unspecified; J44.9 Chronic obstructive pulmonary disease, unspecified
CPT/HCPCS: 77336; 77386; 80048; 96361; 96365; 96366; 96367; 96375; J1100; J1170; J2405; J7040

== ENCOUNTER 2020-06-08 13:30 | Outpatient (RCR) | payer MEDICARE, MEDICAID, SELFPAY ==
[2020-05-26 13:43] LABS: Basophils % 0.1 %; Hematocrit 35.6 % (37.0-47.0); Hemoglobin 11.7 g/dL (11.5-15.3); Lymphocytes # 0.6 10^3/uL (0.8-4.8); Lymphocytes % 6.1 %; Mean Corpuscular HGB Conc 32.9 g/dL (30.0-36.0); Mean Corpuscular Hemoglobin 27.7 pg (28.0-34.0); Mean Corpuscular Volume 84.2 fL (81-99); Mean Platelet Volume 10.2 fL (7.4-10.4); Monocytes # 0.1 10^3/uL (0.2-0.9); Monocytes % 1.2 %; Neutrophils # 9.62 10^3/uL (1.8-7.7); Neutrophils % 92.2 %; Nucleated Red Blood Cells % 0 %; Platelet Count 291 10^3/cmm (130-400); Red Blood Count 4.23 10^6/uL (4.1-5.3)
[2020-05-26 14:02] LABS: Slide Review Slide Review Perform
[2020-05-26 14:03] LABS: White Blood Count 10.4 10^3/uL (4.0-10.0)
[2020-05-26 14:09] LABS: Alanine Aminotransferase 10 U/L (0-33); Albumin Level 3.2 g/dL (3.5-5.2); Alkaline Phosphatase 116 IU/L (35-105); Anion Gap 12.2 (5-19); Aspartate Amino Transferase 8 U/L (0-32); Blood Urea Nitrogen 8 mg/dL (6-20); Calcium 8.3 mg/dL (8.5-10.5); Carbon Dioxide 23 mmol/L (22-29); Chloride 102 mmol/L (98-107); Ferritin 364 ng/mL (15-150); Globulin 2.3 g/dL (1.3-4.6); Glomerular Filtration Rate 172.6 mL/min (90-130); Glucose 147 mg/dL (65-115); Iron 39 ug/dL (37-145); Osmolality Calculated 277 mOsm/kg (285-295); Percent Saturation 25.4 % (20-50); Potassium 4.2 mmol/L (3.5-5.1); Sodium 133 mmol/L (136-145); Total Bilirubin 0.2 mg/dL (0.15-1.2); Total Iron Binding Capacity 153 mcg/dl; Total Protein 5.5 g/dL (6.6-8.7); Unsaturated Iron Binding 114 ug/dL (112-347)
[2020-05-26] MEDS: sodium chloride 0.9% 1,000 ML 1000 ML IV (15:15)
[2020-05-26 15:17] VITALS: RESP 18; O2SAT 98
[2020-05-26] MEDS: HYDROmorphone 1 mg/mL INJ 1 mL 2 MG IVP (15:17)
[2020-05-26] MEDS: ondansetron 2 mg/ML SDV 2 mL 8 MG IV (16:00)
--- NOTE | 2020-05-29 16:20 | ONC FU_ITS ---
Dr. Cooney Patient Follow-Up Note Patient: Flaca Caceres Unit #: [id number]: 1975 Dicatated By: Quinn Cooney M.D.Date of Visit:May 26, 2020 Onc Med Follow-up/Prog Note Chief Complaint: Colon cancer and anal margin skin cancer. History of Present Illness: This is a 44 year-old woman with recurrent/metastatic colon cancer and anal margin skin cancer. She has a history of HIV infection acquired through prior IV drug use, diagnosed in 1993. She had a high viral load, CD4 counts of 300. She had been followed by Dr. Goss and Shalini Simeon at [facility] in [place], [place]. She had started treatment with Atripla, though she had been without any history of AIDS defining illnesses. She was then admitted with an acute large bowel obstruction. Her CT of the abdomen and pelvis on 09/24/2013 showed 5 cm mass in the splenic flexure with massive distention of the colon. There were no lesions in the liver. Chest x-ray was unremarkable. CEA 1.0. On 09/25/2013 she was taken to OR for exploratory laparotomy, left hemicolectomy, and transverse end colostomy by Dr. Cristian Bourgeois. 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 There was involvement in 3 out of 7 lymph nodes. Thus, her disease was pathologic stage IIIB (pT3, pN1b, M0). CD4 counts were at 458. Left-sided Port-A-Cath placed. Adjuvant chemotherapy with FOLFOX regimen for 4 cycles delivered 10/21/2013-03/08/2014. She had multiple interruptions, and noncompliance. She had an abscess collection at the surgical bed, underwent a CT-guided percutaneous drainage. For Escherichia coli infection, she received 14 days of Invanz via port. CT of the abdomen and pelvis on 02/15/14 showed no disease progression, although she had a pre-sacral mass inseparable from the colon, which was present since 09/24/2013. There was no further abscess. On 04/04/2014 she had an abdominal pain due to prolapsed bowel in stoma, presented to ED. The urine toxicology screen was positive for amphetamine and THC screen. On 04/09/2014 she was admitted with fever, thought to be due to Port-A-Cath infection. Port-A-Cath was removed, cultures negative. Once again the patient was lost to followup, and did not return for the scheduled appointments. 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 Capecitabine and Oxaliplatin was attempted, cycle 1 on 06/02/14, cycle 2 on 07/14/14. In total, she has received 6 cycles of the oxaliplatin-based treatment, with significant interruptions in her care from 10/21/2013 till 07/14/14. She continued on expectant management; missed her follow up appointments. PET/CT on 11/27/2014 showed no evidence of recurrent malignancy. There was an enlarged left ovary for which ultrasound was recommended. She failed to return for ultrasound or for her scheduled follow-up visits. In interim she underwent perineal and vaginal papulosis treatment by Dr. Bonds. In April 2015 she had progressive night sweats, and progressive pain in the anal / pelvic region. A CT of the pelvis on05/04/2015 revealed several nodular lesions in the pelvis including an 1.9 cm in the vaginal wall, a 4.2 cm in the presacral region, an 1.25 cm adjacent to the left ovary. Clinically she had significant tenderness in the vaginal wall and labia. On 07/04/2015 she underwent an exam under anesthesia, by Dr. Bonds and Dr. Munoz. A large perianal mass with vaginal fistula and open wound was found. She required fistulotomy with the biopsy and excision of the anal mass as well as dilation and curettage. 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 She was then again lost to follow-up here. She was reached in August 2015. At that point an ulcerated, symptomatic anal margin mass measuring 3 cm at 3:00 position was apparent. Restaging PET/CT on 10/01/2015 revealed persistent primary anal malignancy increased in size, 2 subcentimeter conjoint suspicious pulmonary nodules in the right lower lobe and FDG negative presacral mass increased to 5 cm. 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 Small right lower lobe pulmonary nodule was suspicious for metastatic disease. Concurrent combined chemotherapy with Mitomycin and Xeloda together with radiation treatment began on 10/06/2015. Her treatment was complicated with significant radiation-induced toxicity and perineal pain. Clinically, the ulcerated lesion had decreased in size. She completed radiation on 11/28/2015 to a total dose of 5580 cGy. She was seen here for a follow-up visit on 02/16/2016. At that time she was having fever, abdominal pain, and vomiting. A CT abdomen/pelvis at that time showed a new mesenteric nodule in the left upper abdomen measuring 1.7 x 2.2 cm. Metastasis was not excluded. There was moderate hepatomegaly and hepatic steatosis. Her laboratory studies were unremarkable except for low albumin at 2.9 g/dL. She failed to return for follow-up. She was seen at the emergency room at [facility] on 10/22/2017. CT abdomen/pelvis showed interval enlargement of a lobulated cystic structure in the splenic hilum measuring 4.2 x 4.1 cm. She was seen for follow-up here on 10/28/2017. At that time she had a large stomal hernia and significant prolapse of colon at her ostomy site. She was referred to Dr. Bourgeois. She underwent colonoscopy on 12/10/2017. The transverse colon was examined to the transverse colostomy, but the ascending colon could not be visualized. Two days later she presented to the emergency room with severe abdominal pain. She was admitted to [facility] in [place] with evidence of perforated viscus. On 12/12/2017 she underwent emergency exploratory laparotomy with resection of perisplenic mass, splenectomy, and omentectomy. She also underwent reduction of the colon prolapse and reduction of the stomal hernia. Pathology showed well-differentiated mucinous adenocarcinoma involving the perisplenic fat. The tumor measured 7.2 cm in diameter. There was invasion into the spleen and pancreas. Tumor was noted at the edge of the specimen. The omentum was not involved. The tumor was found to harbor a K-barby mutation (c.35G>A). Mismatch repair proteins were found to be intact. On 12/19/2017 she required exploratory laparotomy with drainage of intra-abdominal abscess and partial gastric resection. On 01/03/2018 showed a re-exploration of the abdomen for gastric leak. The procedure included extensive lysis of adhesions, esophagogastroduodenoscopy, and placement of LEIGHA gastrostomy jejunostomy feeding tube. She had gradual recovery and was then able to be discharged to the correction in [place]. She eventually was able to return home with her mother in January. Restaging PET/CT on 06/07/2018 showed a new minimally hypermetabolic left periaortic lymph node measuring 1.7 cm, SUV 2.4. It was felt to be suspicious for recurrence. There were no other suspicious lesions identified. She then had further pathologic evaluation with a [facility] genetic sequencing study. It confirmed the presence of the G12D KRAS mutation and it also confirmed the tumor to be MSI stable. Tumor mutation burden was noted to be low and the NTRK fusion was not detected. I had seen her for a follow-up visit on 07/08/2018. In the absence of any significant disease progression, I had recommended that we continue on observation/expectant management. Restaging CT scans of the abdomen and pelvis on 10/16/2018 show recurrent tumor in the area of the previously noted mass, measuring 3.1 cm. There was interval development of retroperitoneal left periaortic lymphadenopathy measuring up to 14 mm. There was no inguinal or mesenteric adenopathy noted. There was further enlargement of the parastomal hernia measuring 6.5 cm compared to 4.2 cm on the previous study from October 2017. In the setting of further disease progression, she was agreeable to restarting chemotherapy with modified FOLFOX. There was some delay in starting treatment while arrangements were made for placement of Port-A-Cath venous access device by interventional radiology at [facility]. Her medical illnesses include colon cancer, anal margin skin cancer, HIV disease, COPD, hypertension, hypertriglyceridemia, and hypothyroidism. She also has a history of having been treated for cervical cancer. She smokes 1 pack of cigarettes daily, and she has history of polysubstance abuse. INTERIM HISTORY: She began cycle 1 of modified FOLFOX on 12/09/2018. It was administered without 5-FU bolus. She had been having nausea/vomiting prior to surgery the chemotherapy, and it worsened afterwards to the point that she required admission to the hospital for IV fluids and IV anti-emetics. She was sick for about a week after that treatment. Following discharge from the hospital she had no further nausea/vomiting. She continued with cycle 2 of modified FOLFOX on 12/22/2018 and with cycle 3 on 01/06/2019. At her follow-up visit on 01/20/2019 her treatment was put on hold pending outcome of a restaging PET/CT. That study was completed on 02/12/2019. It showed increased metabolic activity in the left upper abdominal mass measuring 3.2 x 2.0 cm, maximum SUV 6.29. Also noted were FDG avid upper retroperitoneal and para-aortic retroperitoneal lymph nodes, consistent with metastatic disease. There did not appear to be obvious disease progression compared to a prior CT scan from 10/28/2018. However, she also did not appear to be showing any significant response, and in the setting of worsening symptoms, I did opt to change her treatment to a FOLFIRI chemotherapy regimen in combination with Avastin. She began cycle 1 of FOLFIRI/Avastin on 03/09/2019. She did require IV hydration and antibiotics for chemotherapy-induced nausea/vomiting, but she otherwise tolerated it with acceptable toxicity. She continued with cycle 2 on 03/23/2019. Subsequent to that treatment she was given a course of Valtrex for suspected herpes zoster. At her followup visit on 04/13/2019 she was feeling better, and she continued with cycle 3 of FOLFIRI/Avastin. She subsequently returned with worsening cough and associated hemoptysis. Her chest CT on 04/17/2019 showed a thick-walled cavitary mass in the superior segment left lower lobe measuring 3.8 x 4.1 x 4.3 cm. The appearance was thought to be consistent with neoplasm versus infectious process. She was admitted to the hospital and began empiric antibiotic coverage with Presalin tazobactam and IV vancomycin. She was then discharged home to continue antibiotic coverage with levofloxacin and Augmentin. Her sputum subsequently came back positive for AFB, and the culture grew nocardia. She was then admitted to [facility] in [place] where she completed a course of IV antibiotic therapy with Primaxin and Bactrim. She was recommended to continue oral antibiotic coverage with Bactrim and minocycline for a total of 1 year of treatment. As of her follow-up visit on 07/07/2019 her chemotherapy remained on hold. She was having abdominal pain and nausea/vomiting. Abdominal x-ray at that time showed no bowel dilatation and no free air. She was given IV hydration and IV antiemetic therapy. On 08/10/2019 she ended up being admitted to [facility] in [place] where she underwent surgery for bowel perforation. She was discharged home with a surgical drain in place and on antibiotic coverage with linezolid 600 mg twice daily together with fluconazole 200 mg daily. I had seen her for a follow-up visit on 07/17/2019. At that point she had restarted antibiotic coverage with linezolid due to recurrence of abdominal pain. She had a repeat CT abdomen/pelvis on 10/26/2019. It showed no significant improvement in the left upper quadrant soft tissue mass which was noted to be inseparable from the stomach, splenic flexure, tail of pancreas, and superior left kidney. The appearance was felt to be consistent with abscess versus necrotic neoplasm. Also noted was left upper quadrant mesenteric tethering with increasing soft tissue deposits suspicious for metastatic lesions. There was increased soft tissue surrounding the aorta consistent with metastatic adenopathy versus fibrosis. There was evidence of parastomal hernia with no obstruction. With those findings, I did have her continue antibiotic therapy for the abscess. As of her followup visit in November 2019 she continued antibiotic coverage with linezolid. She appeared stable clinically with no obvious progression of the colon cancer. At her followup visit in January 2020 she reported increased pain in her back and in her left side, and she had developed 2 knots on her spine. Repeat CT scan of the abdomen/pelvis showed significant progression of the neoplastic process in left upper quadrant with invasion of the stomach, kidney, pancreas, and proximal jejunum. The invasion of the jejunum appeared to be causing moderate but incomplete small bowel obstruction. Also noted were increasing metastatic nodule deposits and lymph nodes around the celiac axis and encasement of the aorta by soft tissue at the level of the SMA and renal arteries. I felt that it was unlikely that she would benefit with further chemotherapy, but as her symptoms appear to be associated with localized disease in the left abdomen, I felt that she potentially would benefit with radiation. Due to the fact that she also has been treated for abscess in that area, the radiation oncologist had requested biopsy to document the pathology. This became problematic, but we were eventually able to obtain a CT-guided biopsy of the left upper quadrant abdominal mass at [facility] on 02/25/2020. Pathology showed metastatic adenocarcinoma with mucinous features, consistent with colorectal origin. She began palliative radiation on 03/21/2020. I had time she was having recurrent nausea/vomiting, and she was having difficulty with her pain management, she was not able to keep down medications. As such, she was given IV hydration, IV antiemetics, and IV pain medication on a regular basis. She completed radiation on 04/28/2020, total dose 5040 cGy. She is seen for a follow-up visit. Her nausea/vomiting and abdominal pain had initially shown significant improvement with the radiation. However, during the past week she has been vomiting again every night. She says her belly feels full. She is having pain in the left side of her back and in her left side/left upper quadrant area. The hydromorphone is not controlling it anymore. Her energy is so-so. She is able to do some light work. ECOG score is 1. Appetite is poor again, and she is eating only a little bit. She does not have fever or night sweats. She has sore mouth due to thrush. She has a little bit of cough. She does not complain of shortness of breath or chest pain. Her bowels are moving daily or every other day. Her stools are sometimes runny and sometimes hard. She is taking senna/docusate 2 tablets 3 times a day. She says it is taking longer for her to avoid. She does not complain of headache or dizziness. She has no residual neuropathy or other focal neurologic symptoms. Medications: Back & Body Extra Strength 2 (500-32.5 mg) Tablet Oral q 6 hours, Combivent Respimat 1 Puff(s) (of 20-100 mcg/act) Aerosol, solution Inhalation q 6 hours PRN, [facility] Senna 1 Tablet (of 8.6 mg) Oral b.i.d., Dilaudid 1 Tablet (of 8 mg) Oral q 4 to 6 hours PRN, DOK Plus 1 Tablet (of 50-8.6 mg) Oral b.i.d., LORazepam 1 mg Tablet Oral b.i.d. PRN, Ondansetron HCl 1 Tablet (of 8 mg) Oral q 8 to 12 hours PRN Allergies: Morphine Sulfate, PROzac, and Ziagen. Review of Systems: Constitutional - Her energy is so-so. She is able to do some light work. Appetite is not good. She is eating only a little bit. She does not have fever or night sweats. ECOG score is 1, ENMT - No sinus congestion/drainage. She recently has been having problems with thrush. No sore throat or difficulty swallowing, Hematologic/Lymphatic - She has easy bruising, Respiratory - No shortness of breath. She has a little bit of cough. No pleuritic pain or hemoptysis, Cardiovascular - No angina pain. No palpitations, Gastrointestinal - She has nausea/vomiting. She complains that her belly feels full. She sometimes has acid reflux. She has ongoing problems with constipation. No blood in the stool or black stools, Genitourinary (F) - She takes a long time to avoid, but she has no dysuria or hematuria and no urgency or incontinence, Musculoskeletal - She has pain in her back and in her left side. She has been taking hydromorphone, but it is no longer controlling the pain adequately, Integumentary - No skin rash, Neurologic - No headache or dizziness. No numbness or tingling. No other focal neurologic symptoms, Psychiatric - No anxiety or depression. She is having difficulty sleeping. Vital Signs: Performed on May 26, 2020 14:42 Height - 65.00 in Weight - 112.4 lbs (LOW) BSA - 1.55 sq.m BMI - 18.70 Temperature - 98.7 F Pulse - 71 /min Respiration - 18 /min BP - 118/73 mm(hg) O2 Sat - 98 % Pain - 10 Physical Examination: Constitutional - She appears somewhat weak generally, Eyes - Sclerae nonicteric. Conjunctivae clear, ENMT - There is yeast in the oral cavity, Hematologic/Lymphatic - No cervical, clavicular, or axillary adenopathy, Respiratory - Lungs sound clear with diminished air movement bilaterally, Cardiovascular - Heart rhythm is regular. There is no murmur, gallop, or rub noted, Abdomen - Moderately distended but soft. Liver is not enlarged. There is no abdominal mass or ascites noted. There is no inguinal adenopathy, Extremities - No edema, Neurologic - No focal neurologic deficits noted. Lab/Imaging: Test performed on May 26, 2020 13:30 Ferritin 364 ng/mL Iron 39 mcg/dL Sodium 133 mmol/L Iron Binding Capacity (TIBC) 153 mcg/dl Potassium 4.2 mmol/L % Iron Saturation 25.4 % Chloride 102 mmol/L CO2 23 mmol/L UIBC 114 mcg/dL Anion Gap 12.2 BUN 8 mg/dL Creatinine 0.4 mg/dL Cr Clearance (Est) 142.95 mL/min eGFR 172.6 mL/min Glucose 147 mg/dL Osmolality - Calculated 277 mOsm/kg Calcium 8.3 mg/dL Protein, Total 5.5 g/dL Albumin 3.2 g/dL Globulin 2.3 g/dL Bilirubin, Total 0.2 mg/dL ALT (SGPT) 10 U/L AST (SGOT) 8 U/L Alkaline Phosphatase 116 IU/L WBC 10.4 10 3/uL RBC 4.23 10 6/uL HGB 11.7 g/dL HCT 35.6 % MCV 84.2 fL MCH 27.7 pg MCHC 32.9 g/dL Platelet Count 291 10 3/cmm MPV 10.2 fL Neutrophils 9.62 10 3/uL Lymphocytes 0.6 10 3/uL Monocytes 0.1 10 3/uL Eosinophils 0.0 10 3/uL Basophils 0.0 10 3/uL Neutrophil % 92.2 % Lymphocyte % 6.1 % Monocyte % 1.2 % Eosinophil % 0.0 % Basophils % 0.1 % NRBC % 0 % CBC Slide Review Slide Review Perform Impression: 1. 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 Her tumor was found to harbor a KRAS mutation, and it was found to be MMR proficient. 2. She underwent left hemicolectomy with transverse and colostomy on 09/25/2013. 3. Adjuvant chemotherapy was attempted but was suboptimal due to poor compliance. Treatment was limited to 4 cycles of adjuvant FOLFOX, completed in February 2014, followed by 2 additional cycles of CapOx, completed in June 2014. 4. 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 She had associated vaginal fistula with open draining wound. By clinical evaluation her disease was at least stage IIIA or possibly stage IV, depending on the status of small pulmonary nodules. 5. She underwent treatment with chemoradiation utilizing mitomycin C/capecitabine for chemosensitization. Radiation was completed on 11/28/2015 to a total dose of 5580 cGy. 6. On 12/12/2017 she underwent emergency exploratory laparotomy for perforated viscus following surveillance colonoscopy. The procedure included resection of perisplenic mass, splenectomy, omentectomy, reduction of prolapse colon, and reduction of parastomal hernia. Tumor was noted at the edge of the specimen. 7. Her postoperative course was complicated by abdominal abscess and by gastric leak, requiring additional surgeries including placement of LEIGHA gastrostomy jejunostomy feeding tube. Her other medical illnesses include: 8. Hypertension. 9. Hypertriglyceridemia. 10. COPD. 11. She has underlying HIV disease. 12. She has history of polysubstance abuse. 13. She has also been treated for cervical cancer. Her restaging PET/CT on 06/07/2018 showed a new minimally hypermetabolic left periaortic lymph node measuring 1.7 cm, SUV 2.4. It was felt to be suspicious for recurrence. There were no other suspicious lesions identified. As of her follow-up visit in June 2018 her clinical status had continued to show gradual improvement. Her PET/CT scan at that point had shown findings which were suggestive of disease progression, limited to mildly enlarged periaortic lymphadenopathy. With those findings, I had recommended observation/expectant management. In October she had presented with nausea/vomiting, and there was evidence of further disease progression by CT scan. At that point she was agreeable to restarting chemotherapy with modified FOLFOX. There was some delay while arrangements were made for placement of Port-A-Cath venous access device. She began cycle 1 of modified FOLFOX on 12/09/2018. Her nausea/vomiting initially had worsened, requiring hospital admission for IV hydration and IV anti-emetics. She subsequently felt better, and she was able to complete 2 additional cycles of treatment. Her treatment was then put on hold pending outcome of restaging PET/CT. It showed persistent disease in the left upper abdominal quadrant and in retroperitoneal lymph nodes. During that time she had developed worsening GI symptoms, and she also experienced a significant decline in her performance status. As such, I opted to change her treatment to a FOLFIRI chemotherapy regimen in combination with Avastin. She began cycle 1 of FOLFIRI/Avastin on 03/09/2019. She required IV hydration for postchemotherapy nausea/vomiting. She was able to continue with cycle 2 on 03/23/2019. She began cycle 3 on 04/13/2019 after a 1-week delay due to a skin eruption in the coccygeal/perineal area, thought to be due to herpes zoster. She had subsequently returned with worsening cough and development of hemoptysis. Her chest CT on 04/17/2019 showed thick walled a cavitary lesion in the upper lobe of the left lung. The appearance was felt to be consistent with neoplasm or infectious process. Her sputum was found to be positive for AFB, and the culture subsequently grew nocardia. She was admitted to [facility] in [place], where she completed a course of IV antibiotic therapy with Primaxin and Bactrim. She was then transitioned to oral antibiotic coverage with Bactrim and minocycline. She was recommended to continue it for a total of 1 year of treatment. Her chemotherapy remained on hold during this time. At her follow-up visit on 07/07/2019 she had presented with fairly acute onset of abdominal pain and vomiting. Her abdominal x-ray showed no bowel dilatation or free air, and she was given symptomatic management. In July she was admitted to [facility] where she underwent surgery for bowel perforation. She had been showing gradual recovery. As of her follow-up visit on 10/16/2019 she had restarted antibiotic coverage with linezolid due to recurrence of abdominal pain. A repeat CT abdomen/pelvis on 10/26/2019 showed persistent mass in the left upper quadrant consistent with necrotic neoplasm versus abscess. I did review that study with the radiologist, and it did appear likely that there was at least some residual abscess. Other findings, though, were suspicious for progression of the underlying neoplasm. With those findings, I did opt to have her continue antibiotic coverage with linezolid. She also was given Marinol for anorexia/nausea. As of her follow-up visit in November 2019 she was feeling somewhat better. At her followup visit on 02/09/2020 she reported significantly worsening of abdominal pain, and she had associated weight loss and declining performance status. She has since then developed recurrent vomiting of brown liquid. Her repeat CT abdomen/pelvis shows significant disease progression. Her CT and clinical findings were consistent with developing small bowel obstruction. She was eventually confirmed by CT directed needle biopsy of the left upper quadrant abdominal mass to have metastatic adenocarcinoma consistent with colorectal primary. On 03/21/2020 she began palliative radiation to that area. She completed radiation on 04/28/2020, total dose 5040 cGy. She initially had symptomatic improvement with the radiation. During that time she had become significantly anemic. Her serum iron studies were consistent with iron deficiency. She has had a good response to parenteral iron replacement. She comes in now with recurrence of vomiting and worsening pain on the left side of her abdomen and back. This is very worrisome for disease progression, which will be problematic, as her options for further treatment are very limited. Plan: She will be scheduled for restaging CT scans of the chest, abdomen, and pelvis. We discussed the fact that the only possible treatment that I can offer her is to go back on some form of oxaliplatin based chemotherapy regimen, which she tolerated very poorly. The other option is to transition to symptomatic/supportive care with hospice. At this point I am going to increase her Dilaudid doses to 12 mg every 4 hours as needed. She is wanting to try a scopolamine patch for the nausea. She will be given Protonix for acid reflux symptoms. She will be treated with fluconazole for the oral candidiasis. Signed By: Quinn Cooney M.D. <<Signature on File>>
--- NOTE | 2020-06-08 11:26 | CT_ITS ---
WS: [id number] CT scan of the chest With IV contrast, CT scan of the abdomen and pelvis with IV contrast. Addition al two-dimensional coronal and sagittal reconstruction was performed. 06/08/2020 Clinical Data: COLON CANCER Comparison: CT abdomen and pelvis, 02/27/2020. DLP: 944.[address] scans at [facility] use at least one of these dose optimization techniques: automat ed exposure control; mA and/or kV adjustment per patient size (includes targeted exams where dose is matched to clinical indication); or iterative reconstruction. Findings: Chest: No nodules, masses or effusions are seen. The heart size is normal with no pericardial effusion. There is coronary artery calcification. No pne umonia or pneumothorax is seen. There is a bleb in the midportion of the left lower lobe. The pulmonary arterial system and thoracic aorta demonstrate no abnormalities or dilatations. There is no axillary or significant mediastinal adenopathy. The bones of the thorax showing minimal o steoarthritic change of the thoracic vertebral bodies. Abdomen/pelvis: The stomach and duodenum are massively dilated with debris and fluid. There is narrowing of the junct ion of the duodenum with the jejunum seen best in the left upper quadrant on coronal image 24 of [address] abdomen series. Common bile duct is dilated to 1.02 cm but no intraluminal obstruction is se en. An area of low density in the right lobe of the liver measuring 2.58 cm seen best on axial image 86 of 151 which could represent metastatic disease and follow-up CT abdomen is recommended. The adrenal glands and pancreas are normal. The gallbladder is absent with clips in the gallbladder f aiyana. The spleen is absent. The kidneys show equal bilateral contrast excretion with no cyst or masses. The abdominal aorta is normal in size with calcification in the wall.. There is a ventral hernia whic h contains bowel and the orifice measures 4.13 cm and is seen best on abdominal axial image 107 at 15 1. Small umbilical hernia which contains only fat seen best on axial image 119 of 151. No appendiciti s or diverticulitis is seen. The distal small bowel appears to be normal. The visualized colon shows fecal material within. No abscess, adenopathy, ascites, mass or free air is seen. There is contrast n oted within the small bowel. No inguinal hernia is seen. The uterus is unremarkable. The bladder is unfilled. There are incidental calcifications of the left psoas muscle and to a lesser degree of the right psoas muscle There is degenerative arthritic change of the lumbar vertebral bodies with loss of the normal lordoti c curvature. No bony metastatic lesions are seen. CT/CT chest abd pel w con* Impression: 1. Negative for acute cardiopulmonary disease. 2. Dilatation of the stomach and duodenum with narrowing at the junction of the duodenum and jejunum. 3. Low density lesion in right lobe of the liver suspicious for metastatic dise ase and recommend repeat CT abdomen and pelvis in 30 days. 4. Ventral hernia containing small bowel but no strangulation is seen. 5. Absent gallbladder and spleen.
[2020-06-08] MEDS: iohexol 300 mg/mL 50 mL Btl PO (12:09)
[2020-06-08] MEDS: iohexol 300 mg/mL 100 mL Btl IV (13:35)
== END 2020-06-23 23:59 | disposition home or self-care (01) ==
LOC: ONCMED 13:30
PROVIDERS: Visit Provider Internal Medicine Medical Oncology
DX: C18.4 Malignant neoplasm of transverse colon (principal); C21.0 Malignant neoplasm of anus, unspecified; C79.89 Secondary malignant neoplasm of other specified sites; D50.9 Iron deficiency anemia, unspecified; E78.1 Pure hyperglyceridemia; E03.9 Hypothyroidism, unspecified; F19.10 Other psychoactive substance abuse, uncomplicated; I10 Essential (primary) hypertension; J44.9 Chronic obstructive pulmonary disease, unspecified; K44.9 Diaphragmatic hernia without obstruction or gangrene; Z79.899 Other long term (current) drug therapy; Z21 Asymptomatic human immunodeficiency virus [HIV] infection status; Z85.41 Personal history of malignant neoplasm of cervix uteri
CPT/HCPCS: 36415; 71260; 74177; 80053; 82728; 83540; 83550; 85025; 96365; 96375; 99214; J1100; J1170; J2405; J7030; Q9967

== ENCOUNTER 2020-07-01 08:15 | Outpatient (RCR) | payer MEDICARE, MEDICAID, SELFPAY ==
[2020-06-27] MEDS: sodium chloride 0.9% 1,000 ML 999 ML IV (12:15)
[2020-06-27 12:49] LABS: Basophils # 0.1 10^3/uL (0.0-0.1); Basophils % 0.6 %; Eosinophils # 0.2 10^3/uL (0.0-0.8); Eosinophils % 1.4 %; Hematocrit 43.4 % (37.0-47.0); Hemoglobin 14.3 g/dL (11.5-15.3); Lymphocytes # 2.3 10^3/uL (0.8-4.8); Lymphocytes % 15.6 %; Mean Corpuscular HGB Conc 32.9 g/dL (30.0-36.0); Mean Corpuscular Hemoglobin 27.9 pg (28.0-34.0); Mean Corpuscular Volume 84.8 fL (81-99); Mean Platelet Volume 10.4 fL (7.4-10.4); Monocytes # 0.7 10^3/uL (0.2-0.9); Monocytes % 4.8 %; Neutrophils # 11.49 10^3/uL (1.8-7.7); Nucleated Red Blood Cells % 0.2 %; Platelet Count 520 10^3/cmm (130-400); Red Blood Count 5.12 10^6/uL (4.1-5.3); Red Cell Distribution Width 25.4 % (12.1-15.1); White Blood Count 14.9 10^3/uL (4.0-10.0)
[2020-06-27 13:01] LABS: Alanine Aminotransferase 9 U/L (0-33); Albumin Level 2.8 g/dL (3.5-5.2); Alkaline Phosphatase 203 IU/L (35-105); Anion Gap 12.4 (5-19); Aspartate Amino Transferase 11 U/L (0-32); Blood Urea Nitrogen 7 mg/dL (6-20); Calcium 8.7 mg/dL (8.5-10.5); Carbon Dioxide 36 mmol/L (22-29); Chloride 84 mmol/L (98-107); Globulin 3.4 g/dL (1.3-4.6); Glomerular Filtration Rate 171.8 mL/min (90-130); Glucose 110 mg/dL (65-115); Osmolality Calculated 269 mOsm/kg (285-295); Sodium 130 mmol/L (136-145); Total Bilirubin 0.4 mg/dL (0.15-1.2); Total Protein 6.2 g/dL (6.6-8.7)
[2020-06-27 13:08] VITALS: RESP 16
[2020-06-27] MEDS: HYDROmorphone 1 mg/mL INJ 1 mL 2 MG IV (13:08)
[2020-06-27 13:14] LABS: Potassium 2.4 mmol/L (3.5-5.1)
[2020-06-27] MEDS: potassium chloride premix 100 ML 50 MEQ IV (13:51)
[2020-06-27 15:03] LABS: Magnesium 1.8 mg/dL (1.7-2.3)
[2020-07-01] MEDS: sodium chloride 0.9% 1,000 ML 999 ML IV (09:30)
[2020-07-01] MEDS: ondansetron 2 mg/ML SDV 2 mL 8 MG IVP (09:45)
[2020-07-01 10:30] VITALS: RESP 18; O2SAT 98
[2020-07-01] MEDS: HYDROmorphone 1 mg/mL INJ 1 mL IV (10:30)
[2020-07-01 10:36] LABS: Anion Gap 10.6 (5-19); Blood Urea Nitrogen 8 mg/dL (6-20); Calcium 8.4 mg/dL (8.5-10.5); Carbon Dioxide 36 mmol/L (22-29); Chloride 86 mmol/L (98-107); Glomerular Filtration Rate 171.8 mL/min (90-130); Glucose 93 mg/dL (65-115); Osmolality Calculated 268 mOsm/kg (285-295); Sodium 130 mmol/L (136-145)
[2020-07-01 10:52] LABS: Potassium 2.6 mmol/L (3.5-5.1)
[2020-07-01] MEDS: potassium chloride ER 10 mEq Tablet 20 MEQ PO (11:30)
== END 2020-07-24 23:59 | disposition home or self-care (01) ==
LOC: ONCMED 08:15
PROVIDERS: Internal Medicine Medical Oncology; Visit Provider Nurse Practitioner
DX: C21.0 Malignant neoplasm of anus, unspecified (principal); C18.9 Malignant neoplasm of colon, unspecified; K56.600 Partial intestinal obstruction, unspecified as to cause; E87.6 Hypokalemia; E78.5 Hyperlipidemia, unspecified; I10 Essential (primary) hypertension; J44.9 Chronic obstructive pulmonary disease, unspecified; F17.200 Nicotine dependence, unspecified, uncomplicated
CPT/HCPCS: 36591; 80048; 80053; 83735; 85025; 96361; 96365; 96366; 96374; 96375; 96376; J1170; J2405; J3480; J7030